=== PATIENT | female | born 1950 | race Caucasian/White ===

== ENCOUNTER 2024-03-15 19:03 | Inpatient (IN) | payer MEDICARE, SELFPAY ==
[2024-03-15] VITALS (7 sets, daily range): BP systolic 120–128; BP diastolic 53–68; PULSE 89–98; RESP 15–27; TEMP 39.2–39.4; O2SAT 95–99; BMI 28.2
--- NOTE | 2024-03-15 19:13 | XR_ITS ---
Examination: AP chest single view Technique: AP portable upright chest single Exam date and time: March 15, 2019 0529 hrs. Indications: Umbilical Findings: Subsegmental atelectasis right base secondary to elevation Normal heart size No lobar pneumonia Moderate osteopenia Impression: No pneumonia identified
--- NOTE | 2024-03-15 19:13 | EKG_ITS ---
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
--- NOTE | 2024-03-15 19:13 | PD.EDADULT ---
ED General RME/HPI General Chief complaint: Fever Stated complaint: WEAKNESS Time Seen by Provider: 03/15/24 19:08 Arrival date/time: 03/15/24 19:03 CC: Weakness malaise HPI ongoing for the past day and a half EMS reports stable vital signs of the patient was warm to touch. Friend of the patient called stating the patient has not gotten out of her chair for the past day and a half patient admits she has not eaten anything today but drank a lot of water. Patient has a history of MS is concerned that she has an MS flare. Patient is also diabetic blood sugar and route was 85. Patient is awake alert oriented stating that she feels generalized weak, denies any chest pain shortness of breath or difficulty breathing. Related Data Home Medications ?Medication ?Instructions ?Recorded ?Confirmed metformin 1,000 mg tablet 1,000 mg PO BIDWM 10/21/20 11/03/22 prednisone 10 mg tablet 10 mg PO DAILY 10/21/20 11/03/22 pyridostigmine bromide 60 mg tablet 60 mg PO QID 10/21/20 11/03/22 diltiazem HCl 120 mg 120 mg PO QDAY 02/20/21 11/03/22 capsule,extended release 24 hr (Cardizem CD) Previous Rx's ?Medication ?Instructions ?Recorded duloxetine 60 mg capsule,delayed 60 mg PO QDAY #0 caps 03/31/19 release cefuroxime axetil 500 mg tablet 500 mg PO BID #6 tabs 11/04/22 Allergies Allergy/AdvReac Type Severity Reaction Status Date / Time Sulfa (Sulfonamide Allergy Severe Hives Verified 11/02/22 06:03 Antibiotics) Review of Systems Review of Systems Narrative Review of Systems: GEN: No fever, no chills, no weight loss EYES: No discharge, no visual changes, no pain HEENT: No ear pain, no congestion, no sore throat PULM: No shortness of breath, no cough, no congestion CV: No chest pain, no dyspnea on exertion, no palpitations GI: No nausea, no vomiting, no diarrhea, no pain, no constipation : No frequency, no urgency, no dysuria MUSC/SKEL: No joint pain, no back pain SKIN: No rash PSYCH: No hallucinations, no depression HEME/LYMPH: No easy bleeding or bruising tendencies NEURO: + weakness, no headache Past Medical History Past Medical History NEUROLOGIC: Positive Neurological Disorders and Head Trauma; Negative Seizures CARDIAC: Positive Cardiac Disorders, Myocardial Infarction, Hypercholesterolemia and Hypertension; Negative Congestive Heart Failure RESPIRATORY: Positive Pneumonia; Negative Chronic Obstructive Pulmonary Disease (COPD), Asthma, Tuberculosis or Sleep Apnea GASTROINTESTINAL: Negative Gastrointestinal Disorders or Hepatitis GENITOURINARY: Negative Genitourinary Disorders or Renal Disease REPRODUCTIVE: Positive Endometriosis and Previous Pregnancies MUSCULOSKELETAL: Positive Musculoskeletal Disorders, Myasthenia Gravis, Arthritis, Scoliosis and Fractures ENT: Positive Cataracts and Head Trauma ENDOCRINE: Positive Endocrine Disorders and Diabetes Mellitus Type 2; Negative Diabetes Mellitus Type 1 HEMATOLOGIC: Negative Blood Disorders, Anemia or Sickle Cell Disease PSYCHO/SOCIAL: Positive Psychiatric Problems, Bipolar Disorder, Depression and Anxiety; Negative Recreational Drug Use OTHER HISTORY: Positive Hospitalization, Falls, Blood Transfusions, Chicken Pox, Measles and Rubella (Bengali Measles); Negative Autoimmune Disease, Shingles, Blood Transfusion Reaction, Anesthesia Reactions, Chemotherapy, Radiation Therapy, MRSA, VRSA, Vancomycin-Resistant Enterococci, Human Immunodeficiency Virus (HIV), Mumps, Pertussis, Clostridium Difficile or Cancer Family History FAMILY HISTORY: Positive Family Cardiac Disorders and Family Surgery; Negative Family Psychiatric Problems, Family Respiratory Disorders, Family Gastrointestinal Problems, Family Cancer or Family Anesthesia Reaction Surgical History SURGICAL: Positive Tonsillectomy, Adenoidectomy, Abdominal Surgery, Joint Replacement and Hysterectomy Social History SMOKING STATUS: Former smoker SECOND HAND EXPOSURE: No SUBSTANCE USE: does not use ED Exam Narrative Physical exam: [General: Deconditioned, but appears not in any acute distress Head normocephalic HEENT: Eyes pupils are PERRLA EOMs are intact mouth pink dry membranes uvula is midline swallow symmetrical lips are dry. Nose no rhinorrhea epistaxis. All other subsystems of HEENT are within acceptable limits Neck is supple nontender Chest equal chest rise nontender to palpation Respiratory: Clear to auscultation no wheezes crackles or rubs CV: Rate rhythm is regular no murmurs rubs or clicks Abdomen is distended secondary to body habitus soft nontender no masses positive bowel sounds all 4 quadrants Back: No CVA tenderness no spinous process tenderness from cervical spine thoracic and lumbar spine Skin: Warm to touch, intact no petechiae rash induration ulceration or crepitus Extremities: Moving all extremity against resistance cap refill less than 2 seconds neurosensory intact Neuro: Awake alert oriented x3 Glascow coma 15 no focal deficits] Course Quality Measures none (Sepsis- see notes) Orders Category Date Time Status Admit to Inpatient Status Routine Admission 03/16/24 06:06 Active Patient Condition Routine Admission 03/16/24 06:05 Ordered Bedside COVID-19 Antigen Test NOW Care 03/15/24 19:09 Active Bedside Influenza A&B Antigen Test NOW Care 03/15/24 19:09 Completed COVID-19 Screening Questionnaire NOW Care 03/16/24 05:38 Active Baler Operator STAT Care 03/15/24 19:13 Active Continuous Pulse Oximetry STAT Care 03/15/24 19:13 Completed Decision to Admit X1 Care 03/16/24 05:38 Completed EKG (ED ONLY) *Do not use* NOW Care 03/15/24 19:13 Completed EKG (ED ONLY) *Do not use* NOW Care 03/16/24 00:31 Completed In and Out Catheter X1PRN Care 03/15/24 19:13 Completed Insert IV NOW Care 03/15/24 19:13 Completed NPO STAT Care 03/15/24 19:13 Active Notify provider NEEDED Care 03/16/24 06:05 Active Nurse Swallow Screen X1 Care 03/16/24 06:12 Active Seizure precautions NEEDED Care 03/16/24 06:06 Active Strict Intake and Output Routine Care 03/15/24 19:13 Ordered Swallow Evaluation NEEDED Care 03/16/24 06:12 Active Diet Cardiac Diet 03/16/[address] abdomen pelvis wo con Stat Exams 03/15/24 22:15 Completed EKG (ED Only) Stat Exams 03/15/24 19:13 Draft EKG (ED Only) Stat Exams 03/16/24 00:31 Ordered US gall bladder Stat Exams 03/16/24 03:00 Taken XR chest 1V SEPSIS PROTOCOL Stat Exams 03/15/24 19:13 Completed B-Type Natriuretic Peptide Stat Lab 03/15/24 20:51 Completed Basic Metabolic Panel AM DRAW Lab 03/17/24 05:00 Ordered Basic Metabolic Panel AM DRAW Lab 03/18/24 05:00 Ordered Basic Metabolic Panel AM DRAW Lab 03/19/24 05:00 Ordered Blood Culture (Lab) Stat Lab 03/15/24 20:42 Received CBC AM DRAW Lab 03/17/24 05:00 Ordered CBC AM DRAW Lab 03/18/24 05:00 Ordered CBC AM DRAW Lab 03/19/24 05:00 Ordered CBC Stat Lab 03/15/24 20:51 Completed Comprehensive Metabolic Panel Stat Lab 03/15/24 20:51 Completed LDH (Lactate Dehydrogenase) Stat Lab 03/15/24 20:51 Completed Lactate (Lactic Acid) Stat Lab 03/15/24 20:51 Completed Lipase Stat Lab 03/15/24 20:51 Completed Lipid Panel Routine Lab 03/16/24 06:08 Ordered Magnesium AM DRAW Lab 03/17/24 05:00 Ordered Magnesium AM DRAW Lab 03/18/24 05:00 Ordered Magnesium AM DRAW Lab 03/19/24 05:00 Ordered Magnesium Stat Lab 03/15/24 20:51 Completed Partial Thromboplastin Time Stat Lab 03/15/24 20:51 Completed Phosphorous AM DRAW Lab 03/17/24 05:00 Ordered Phosphorous AM DRAW Lab 03/18/24 05:00 Ordered Phosphorous AM DRAW Lab 03/19/24 05:00 Ordered Phosphorous Stat Lab 03/15/24 20:51 Completed Procalcitonin Stat Lab 03/15/24 20:51 Completed Prothrombin Time with INR Stat Lab 03/15/24 20:51 Completed Thyroid Stimulating Hormone AM DRAW Lab 03/17/24 05:00 Ordered Troponin I Stat Lab 03/15/24 20:51 Completed Urinalysis Stat Lab 03/15/24 20:53 Completed Urine Culture Stat Lab 03/15/24 20:53 Received Acetaminophen Tab [Tylenol Tab] Med 03/16/24 06:05 Active 650 mg PO Q6H PRN Acetaminophen Tab [Tylenol Tab] Med 03/15/24 21:30 Discontinued 650 mg PO X1 ONE Albuterol/Ipratr Rt Kate [Duoneb Rt Kate] Med 03/16/24 06:05 Active 3 ml INH Q2HR PRN DULoxetine HCL [Cymbalta] Med 03/16/24 09:00 Active 60 mg PO QDAY Dextrose 50% Syr [D50w Syringe Abboject] Med 03/16/24 06:10 Active 50 ml IV Q15MIN PRN Enoxaparin [Lovenox] Med 03/16/24 09:00 Active 40 mg SC QDAY Glucagon Inj Med 03/16/24 06:10 Active 1 mg IM Q15MIN PRN HYDROcodone*/APAP 5/325 [[place] 5/325] Med 03/16/24 06:05 Active 1 tab PO Q4HR PRN INSULIN LISPRO (AdmeLOG) [HumaLOG] Med 03/16/24 07:30 Active See Protocol SC AC Ketorolac Inj [Toradol Inj] Med 03/15/24 23:06 Discontinued 30 mg IVP X1 ONE Magnesium Sulfate 4 GM Ivpb [Magnesium Sulfate Ivpb] Med 03/16/24 06:13 Active 4 gm in 50 ml IV X1 Ondansetron Inj [Zofran Inj] Med 03/16/24 06:05 Active 4 mg IV Q6H PRN Piper/Tazo 3.375 gm [Zosyn] 50 ml Med 03/16/24 14:00 Discontinued IV Q8HR Piper/Tazo Inj [Zosyn Inj] 3.375 gm Med 03/16/24 06:00 Active Sodium Chloride 0.9% [Ns] 100 ml IV X1 cefTRIAXone/D5w 1gm IV premix [Rocephin/D5w 1gm IV Med 03/17/24 09:00 Active premix] 50 ml IV QDAY cefTRIAXone/D5w 1gm IV premix [Rocephin/D5w 1gm IV Med 03/15/24 23:09 Discontinued premix] 50 ml IV X1 pyRIDostigmine bromide [Mestinon] Med 03/16/24 08:00 Active 90 mg PO Q6HR traZODone HCL [Desyrel] Med 03/16/24 21:00 Active 50 mg PO HS Code Status Routine Oth 03/16/24 06:05 Ordered Oxygen Delivery NOW RT 03/15/24 19:13 Active Vital Signs Vital signs: Vital Signs Temperature 102.6 F H 03/15/24 19:07 Pulse Rate 92 03/15/24 19:07 Respiratory Rate 19 03/15/24 19:07 Blood Pressure 128/68 03/15/24 19:07 Pulse Oximetry (%) 98 03/15/24 19:07 Oxygen Delivery Method Room Air 03/15/24 19:07 [facility] Patient data External records reviewed:: [facility] previous records and EMS form Clinical information provided by:: patient and EMS Social determinants that could affect healthcare access:: none Patient has the following chronic illnesses:: Diabetes MS How is presenting disease/condition affected by chronic disease/condition?: uneffected by Evaluation data The following diagnostics were reviewed and interpreted by me:: lab results, radiology exam(s) and EKG tracing(s) Lab and/or radiology exams considered but not ordered:: EKG performed at 2053 shows a ventricular rate of 89 OK interval 176 QRS of 102 QTc of 4 7 sinus rhythm. CBC shows leukocytosis of 12.8 hemoglobin of 10.3 with a hematocrit of 31 no thrombocytopenia Coags within acceptable limits CMP shows sodium 137 potassium of 4.2 chloride 105 carbon oxide of 25.0 gap of 7 BUN of 26 creatinine 1.7 glucose of 86 Mag 1.5 BNP of 216 Pro-Jared of 1.23 lipase within acceptable limits Lactic is 1.1. Urine shows a to 40 WBCs 1+ bacteria urine nitrite negative urine leukocyte esterase positive. COVID and influenza negative. Interpretation Summary: Patient is a fever of 103.0 the urine is not commiserate with a high temp such as this the patient is not altered, there is no other acute source at this time a CT of the abdomen pelvis. Medications Medications considered but not ordered:: none Medication administrations:: Medication Administration History Acetaminophen (Acetaminophen 325 Mg Tablet) 650 mg PO Q6H PRN PRN Reason: Fever >100.3 or pain Stop: 04/15/24 06:04 Hydrocodone Bitart/Acetaminophen (Hydrocodone/Apap 5/325 Tablet) 1 tab PO Q4HR PRN PRN Reason: PAIN SCALE 4-10(Mod-Sev Stop: 03/21/24 06:04 Albuterol/Ipratropium (Albuterol/Ipratropium (Duoneb) Rt Kate 3 Ml Nebu) 3 ml INH Q2HR PRN PRN Reason: SHORTNESS OF BREATH OR WHEEZE Stop: 04/15/24 06:04 Dextrose (Dextrose 50%-Water Inj 50 Ml Syringe) 50 ml IV Q15MIN PRN PRN Reason: BG <50 OR BG <70 & pt unresponsive Stop: 04/15/24 06:09 Duloxetine HCl (Duloxetine Hcl 30 Mg Capsule) 60 mg PO QDAY MARIA DE JESUS Stop: 04/15/24 08:59 Enoxaparin Sodium (Enoxaparin Sod Inj 40 Mg/0.4 Ml Syringe) 40 mg SC QDAY MARIA DE JESUS Stop: 03/30/24 08:59 Glucagon (Glucagon Inj 1 Mg Vial) 1 mg IM Q15MIN PRN PRN Reason: BG <70, and no IV access Piperacillin Sod/Tazobactam (Sod 3.375 gm/ Sodium Chloride) 100 mls @ 200 mls/hr IV X1 ONE Stop: 03/16/24 06:29 Last Admin: 03/16/24 06:02 Dose: 200 mls/hr Documented By: QUINN Magnesium Sulfate (Magnesium Sulfate Ivpb) 4 gm in 50 mls @ 12.5 mls/hr IV X1 ONE Stop: 03/16/24 10:12 Ceftriaxone Sodium/Dextrose (Rocephin/D5w 1gm Iv Premix) 50 mls @ 100 mls/hr IV QDAY MARIA DE JESUS Stop: 03/24/24 08:59 Insulin Human Lispro (Insulin Lispro (Admelog) 1 Unit/0.01 Ml Unit) 0 unit SC AC MARIA DE JESUS; Protocol Stop: 04/15/24 07:29 Ondansetron HCl (Ondansetron Inj 2 Mg/Ml Inj 2 Ml) 4 mg IV Q6H PRN; Protocol PRN Reason: NAUSEA OR VOMITING Stop: 04/15/24 06:04 Pyridostigmine Dickey (Pyridostigmine Dickey 60 Mg Tablet) 90 mg PO Q6HR MARIA DE JESUS Stop: 04/15/24 07:59 Trazodone HCl (Trazodone Hcl 50 Mg Tablet) 50 mg PO HS MARIA DE JESUS Stop: 04/15/24 20:59 Discontinued Medications Acetaminophen (Acetaminophen 325 Mg Tablet) 650 mg PO X1 ONE Stop: 03/15/24 21:31 Last Admin: 03/15/24 21:36 Dose: 650 mg Documented By: CAMILA Ceftriaxone Sodium/Dextrose (Rocephin/D5w 1gm Iv Premix) 50 mls @ 100 mls/hr IV X1 ONE Stop: 03/15/24 23:38 Last Infusion: 03/16/24 00:27 Dose: Infused Documented By: Admin: 03/15/24 23:17 Dose: 100 mls/hr Documented By: CAMILA Piperacillin/Tazobactam/Dextrose (Zosyn) 50 mls @ 12.5 mls/hr IV Q8HR MARIA DE JESUS; Protocol Stop: 03/23/24 13:59 Ketorolac Tromethamine (Ketorolac Inj 30 Mg/Ml Vial) 30 mg IVP X1 ONE Stop: 03/15/24 23:07 Last Admin: 03/15/24 23:16 Dose: 30 mg Documented By: CAMILA As above Consultations Consultation(s) initiated? (list below): Yes Diagnosis Differential Diagnosis ED Complaint MDM: Sepsis, UTI, pyelonephritis, acute abdominal infection, acute cholecystitis Most likely diagnosis given after review of the tests above:: Acute pyelonephritis, cholelithiasis Admission Indicated Admission indicated?: indicated Explain why admission is indicated or not indicated:: Patient with acute pyelonephritis Admission Request Was there a request for admission?: Yes Admission Attestation Admission request attestation: Discussed case with [] from Hospitalist service regarding admission. Discussed patients ED course, exam findings, labs, and radiology results. The Hospitalist [agrees,declines] to accept the patient for admission. Disposition Plan Disposition Plan: Admit Medical Decision Making Differential Diagnosis Differential Diagnosis: Sepsis, UTI, pyelonephritis, acute abdominal infection, acute cholecystitis Lab Data 03/15/24 20:51 03/15/24 20:51 Labs: Lab Results 03/15/24 03/15/24 Range/Units 20:51 20:53 WBC 12.8 H (3.6-11.0) Thou/mm3 RBC 3.39 L (4.00-5.20) Miln/mm3 Hgb 10.3 L (12.0-16.0) g/dL Hct 31.1 L (36.0-46.0) % MCV 92 (80-100) fL MCH 30.4 (25.0-35.0) pg MCHC 33.1 (31.0-37.0) g/dl RDW Std Deviation 44.8 (36.4-46.3) fL Plt Count 188 (140-440) Thou/mm3 Neut % (Auto) 90 H (37-80) % Lymph % (Auto) 5 L (10-50) % [place] % (Auto) 5 (0-12) % Eos % (Auto) 0 (0-10) % Baso % (Auto) 0 (0-2.5) % Neut # (Auto) 11.5 H (1.8-7.7) Thou/mm3 Lymph # (Auto) 0.6 L (1.0-4.8) Thou/mm3 [place] # (Auto) 0.6 (0.0-0.8) Thou/mm3 Eos # (Auto) 0.0 (0.0-0.5) Thou/mm3 Baso # (Auto) 0.0 (0.0-0.2) Thou/mm3 Immature Gran # (Auto) 0.06 H (0.00-0.00) Thou/mm3 Absolute Nucleated RBC 0.00 (0.00-0.00) Thou/mm3 Immature Gran % 1 H (0-0) % Nucleated RBC % 0 (0) /100 WBC PT 11.2 (9.0-12.2) Seconds INR 1.0 (0.9-1.3) APTT 31.8 (22.0-36.0) Seconds Sodium 137 (136-145) mMol/L Potassium 4.2 (3.4-5.1) mMol/L Chloride 105 (98-107) mMol/L Carbon Dioxide 25.0 (20.0-31.0) mMol/L Anion Gap 7 (7-16) BUN 26 H (9-23) mg/dL Creatinine 1.7 H (0.6-1.3) mg/dL Estim Creat Clear Calc 30.4 L (>60) mL/min eGFR 31 L (60 - ) See Note BUN/Creatinine Ratio 15 (12-20) Ratio Glucose 86 (74-106) mg/dL Calculated Osmolality 277 (275-295) Lactic Acid 1.1 (0.4-2.0) mMol/L Calcium 9.8 (8.3-10.6) mg/dL Corrected Calcium 9.8 (8.5-10.1) mg/dL Phosphorus 2.7 (2.4-5.1) mg/dL Magnesium 1.5 L (1.6-2.6) mg/dL Total Bilirubin 0.5 (0.3-1.2) mg/dL AST 19 (0-34) U/L ALT 9 L (10-49) U/L Alkaline Phosphatase 73 (46-116) U/L Lactate Dehydrogenase 170 (120-246) U/L Troponin I 0.030 (0.0-0.045) ng/mL B-Natriuretic Peptide 216 H (0-100) pg/mL Total Protein 6.8 (5.7-8.2) gm/dL Albumin 4.1 (3.4-4.8) gm/dL Globulin 2.7 (2.3-3.5) gm/dL Albumin/Globulin Ratio 1.5 (1.2-2.2) Lipase 30 (12-53) U/L Procalcitonin 1.23 H (0.0-0.49) ng/ml Ur Collection Type Clean Catch Urine Color Lt-Yellow (Lt Yel-Yel) Urine Clarity Hazy (Clear/Hazy) Urine pH 5.5 (5.0-7.0) Ur Specific [place] 1.014 (1.001-1.035) Urine Protein 1+ A (Neg - Trace) Urine Glucose (UA) Negative (Negative) Urine Ketones Negative (Negative) Urine Blood 2+ A (Negative) Urine Nitrite Negative (Negative) Urine Bilirubin Negative (Negative) Urine Urobilinogen (Auto) Negative (0.0-1.0) mg/dL Ur Leukocyte Esterase Positive (Negative) Urine RBC 14 H (0-3) /hpf Urine WBC 240 H (0-5) /hpf Ur Squamous Epith Cells < 1 (0-5) /hpf Urine Bacteria 1+ A (None) Discharge Plan Plan Patient Disposition: Admit Acute Care w/in Hospital Patient condition on transfer: Stable Prescriptions/Referrals Prescriptions/Med Rec: No Action pyridostigmine bromide 60 mg tablet 60 mg PO QID prednisone 10 mg tablet 10 mg PO DAILY Patient Comments: take 1 tablet by mouth once daily metformin 1,000 mg tablet 1,000 mg PO BIDWM duloxetine 60 mg Capsule,Delayed Release(Dr/Ec) 60 mg PO QDAY Qty: 0 0RF diltiazem HCl [Cardizem CD] 120 mg Capsule,Extended Release 24hr 120 mg PO QDAY cefuroxime axetil 500 mg tablet 500 mg PO BID Qty: 6 0RF Referrals: No Primary/Family,Physician [Primary Care Provider] - In 1 week Problem List Clinical Impression: Sepsis, Acute pyelonephritis, Acute renal failure, Acute cholecystitis Patient/Caregiver Discharge Instructions Print Language: Italian Stand Alone Forms: [employer] Info., Patient Portal Info Letter
[2024-03-15 21:01] LABS: Collection Type, Urine Clean Catch
[2024-03-15 21:01] LABS: Lactate (Lactic Acid) 1.1 mMol/L (0.4-2.0)
[2024-03-15 21:08] LABS: Basophils % (Auto) 0 % (0-2.5); Eosinophils % (Auto) 0 % (0-10); Hematocrit 31.1 % (36.0-46.0); Hemoglobin 10.3 g/dL (12.0-16.0); Immature Granulocytes % (Auto) 1 % (0-0); Immature Granulocytes Auto 0.06 Thou/mm3 (0.00-0.00); Lymphocytes # (Auto) 0.6 Thou/mm3 (1.0-4.8); Lymphocytes % (Auto) 5 % (10-50); Mean Corpuscular HGB Conc 33.1 g/dl (31.0-37.0); Mean Corpuscular Hemoglobin 30.4 pg (25.0-35.0); Mean Corpuscular Volume 92 fL (80-100); Monocytes # (Auto) 0.6 Thou/mm3 (0.0-0.8); Monocytes % (Auto) 5 % (0-12); Neutrophils # (Auto) 11.5 Thou/mm3 (1.8-7.7); Neutrophils % (Auto) 90 % (37-80); Nucleated Red Blood Cell % 0 /100 WBC (0); Platelet Count 188 Thou/mm3 (140-440); RDW Standard Deviation 44.8 fL (36.4-46.3); Red Blood Count 3.39 Miln/mm3 (4.00-5.20); White Blood Count 12.8 Thou/mm3 (3.6-11.0)
[2024-03-15 21:18] LABS: Partial Thromboplastin Time 31.8 Seconds (22.0-36.0); Prothrombin Time 11.2 Seconds (9.0-12.2)
[2024-03-15 21:19] LABS: Bacteria,Urine 1+; Bilirubin,Urine Negative (Negative); Blood,Urine 2+ (Negative); Color,Urine Lt-Yellow (Lt Yel-Yel); Glucose, Urine Negative (Negative); Ketones,Urine Negative (Negative); Leukocyte Esterase,Urine Positive (Negative); Nitrite,Urine Negative (Negative); PH,Urine 5.5 (5.0-7.0); Protein,Urine 1+ (Neg - Trace); RBC,Urine 14 /hpf (0-3); Specific Gravity,Urine 1.014 (1.001-1.035); Squamous Epithelial Cell,Urine < 1 /hpf (0-5); Urobilinogen,Urine Negative mg/dL (0.0-1.0); WBC,Urine 240 /hpf (0-5)
[2024-03-15 21:21] LABS: Clarity,Urine Hazy (Clear/Hazy)
[2024-03-15 21:33] LABS: Albumin, Serum 4.1 gm/dL (3.4-4.8); Albumin/Globulin Ratio 1.5 (1.2-2.2); Alkaline Phosphatase 73 U/L (46-116); Anion Gap 7 (7-16); Aspartate Amino Transferase 19 U/L (0-34); BUN/Creatinine Ratio 15 Ratio (12-20); Bilirubin,Total 0.5 mg/dL (0.3-1.2); Blood Urea Nitrogen 26 mg/dL (9-23); Calcium 9.8 mg/dL (8.3-10.6); Calcium (Corrected) 9.8 mg/dL (8.5-10.1); Chloride 105 mMol/L (98-107); Creatinine (Component) 1.7 mg/dL (0.6-1.3); Estimated Creatinine Clearance 30.4 mL/min (>60); Globulin 2.7 gm/dL (2.3-3.5); Glucose 86 mg/dL (74-106); LDH (Lactate Dehydrogenase) 170 U/L (120-246); Lipase 30 U/L (12-53); Magnesium 1.5 mg/dL (1.6-2.6); Osmolality,Calculated 277 (275-295); Phosphorous 2.7 mg/dL (2.4-5.1); Potassium 4.2 mMol/L (3.4-5.1); Procalcitonin 1.23 ng/ml (0.0-0.49); Sodium 137 mMol/L (136-145); Total Protein 6.8 gm/dL (5.7-8.2); eGFR 31 See Note
[2024-03-15 21:34] LABS: Alanine Aminotransferase 9 U/L (10-49); B-Type Natriuretic Peptide 216 pg/mL (0-100)
[2024-03-15] MEDS: ACETAMINOPHEN 325 MG TABLET 650 MG PO (21:36)
--- NOTE | 2024-03-15 22:15 | XR_ITS ---
Examination: CT abdomen and pelvis without contrast. Coronal 3-D reconstructions. Sagittal 2-D reconstructions. Date and time of exam:March 15, 2024 2249 hrs. Indications: Fever unknown origin today with abdominal pain CTDI: vol (mGy): 7.24 DLP: (mGycm): 465 Technique: Axial images of the abdomen have been obtained, 3 mm slice thickness Intravenous contrast material has not been administered. Low dose protocols were performed. One or more of the following dose reduction techniques were used; automated exposure control, adjustment of the mA and/or KV according to patient size, use of iterative reconstruction technique. Findings: Soft areas of parenchymal disease in the left upper lobe No liver or splenic lesion Distended gallbladder with gallstones No pancreatic mass 2 mm right renal calculus Perinephric stranding Mild dilatation right renal pelvicalyceal system Normal appendix No bowel obstruction Heavy abdominal aortic calcification Colonic diverticulosis No diverticulitis Thickening of the rectal wall Contracted bladder, bladder wall thickening with inflammatory change Small fat-containing inguinal hernias Prominent osteopenia with advanced degenerative disc disease diffusely in the lumbar spine Impression: Mild areas of pneumonia in the left upper lobe Distended gallbladder with gallstones, recommend gallbladder sonography follow-up Findings most consistent with right pyelonephritis Prominent cystitis Proctitis pattern
--- NOTE | 2024-03-15 23:08 | PD.EDADDENDU ---
Emergency Room Addendum Addendum Narrative: 230: Care assumed from Pedro Gray NP. Past medical, surgical, social and family history reviewed. Vitals and home medications reviewed. Results and treatment plan discussed. I will assume the care of the patient at this time and will follow the patient, pending CT abdomen pelvis results. Please refer to the emergency department record for history and examination from initial visit. 2340: CT result as below. US gallbladder ordered. 0521: Patient is alert, awake, oriented, and talking in full sentences. She denies any abdominal pain. 0535: Discussed case with [Dr. Farias] from Hospitalist service regarding admission. Discussed patients ED course, exam findings, labs, and radiology results. The Hospitalist [agrees] to accept the patient for admission. States he will consult with general surgery. RADIOLOGY RESULTS: [facility] Report Signed Patient: SHANE CHAPPELL. Record#: [id number] Birthdate: 1950 Age/Sex: 73 / F Location: [facility] Attending Dr: Ordering Physician: Pedro Gray NP Date of Service: 03/15/24 Procedure(s): CT abdomen pelvis wo con Accession Number(s): [id number] cc: Pedro Gray NP; Carlos Palma MD; NO PRIMARY/FAMILY,PHYSICIAN~ Examination: CT abdomen and pelvis without contrast. Coronal 3-D reconstructions. Sagittal 2-D reconstructions. Date and time of exam:March 15, 2024 2249 hrs. Indications: Fever unknown origin today with abdominal pain CTDI: vol (mGy): 7.24 DLP: (mGycm): 465 Technique: Axial images of the abdomen have been obtained, 3 mm slice thickness Intravenous contrast material has not been administered. Low dose protocols were performed. One or more of the following dose reduction techniques were used; automated exposure control, adjustment of the mA and/or KV according to patient size, use of iterative reconstruction technique. Findings: Soft areas of parenchymal disease in the left upper lobe No liver or splenic lesion Distended gallbladder with gallstones No pancreatic mass 2 mm right renal calculus Perinephric stranding Mild dilatation right renal pelvicalyceal system Normal appendix No bowel obstruction Heavy abdominal aortic calcification Colonic diverticulosis No diverticulitis Thickening of the rectal wall Contracted bladder, bladder wall thickening with inflammatory change Small fat-containing inguinal hernias Prominent osteopenia with advanced degenerative disc disease diffusely in the lumbar spine Impression: Mild areas of pneumonia in the left upper lobe Distended gallbladder with gallstones, recommend gallbladder sonography follow-up Findings most consistent with right pyelonephritis Prominent cystitis Proctitis pattern Dictated By: Carlos Palma MD Signed By: <Electronically signed by Carlos Palma MD in OV> 03/15/24 4580 [address] Preliminary Report Draft Patient: SHANE CHAPPELL. Record#: [id number] Birthdate: 1950 Age/Sex: 73 / F [facility] Attending Dr: Ordering Physician: Date of Service: Procedure(s): Accession Number(s): cc: ~ Gallbladder ultrasound. March 16, 2024 at 0426 hours Clinical history: Distended gallbladder, gallstones. Comparison: No prior study is available for comparison. Findings: The gallbladder is distended and contains some dependent gallbladder sludge/gallstones. A bilingual inside sales representative gallstone measures 2.3 cm in maximal dimension. Gallbladder wall is thickened measuring 3.3 mm. There may be a small amount of pericholecystic fluid. There is fatty echogenicity of the liver. There is hepatopedal flow within the portal vein. Right lobe of the liver is normal in size measuring 13.5 cm. No space-occupying hepatic mass or intrahepatic biliary dilatation noted. The pancreas is not visualized. The right kidney is not imaged adequately. Common bile duct is not clearly delineated. Impression: Suspect acute calculus cholecystitis. If clinically necessary this may be confirmed with nuclear medicine hepatobiliary scan. Report Electronically Signed By: Jared Carlos 03/16/2024 5:17:17 AM [EST] Critical Care Time: 40 minutes The high probability of sudden, clinically significant deterioration in the patient?s condition required the highest level of my preparedness to intervene urgently. The services I provided to this patient were to treat and/or prevent clinically significant deterioration. Services included the following: chart data review, reviewing nursing notes and/or old charts, documentation time, corporate health consultant collaboration regarding findings and treatment options, medication orders and management, direct patient care, vital sign assessments and ordering, interpreting and reviewing diagnostic studies and lab tests. Aggregate critical care time includes only time during which I was engaged in work directly related to the patient?s care, as described above, whether at bedside or elsewhere in the Emergency Department. It did not include time spent performing other reported procedures or the services of residents, students, nurses or physician assistants.
[2024-03-15] MEDS: KETOROLAC INJ 30 MG/ML VIAL IVP (23:16)
[2024-03-15] MEDS: cefTRIAXone/D5w 1gm IV premix 50 ML IV (23:17)
[2024-03-16] VITALS (11 sets, daily range): BP systolic 99–127; BP diastolic 43–74; PULSE 59–130; RESP 16–95; TEMP 36.7–38.9; O2SAT 91–100; BMI 28.2
--- NOTE | 2024-03-16 00:23 | PC.NURSE ---
INFORMED BY EMERGENCY MANAGEMENT CONSULTANT THAT PATIENTS HR WAS 167 TO 170. SHAGUFTA SANCHEZ WAS AT BEDSIDE HAVING PATIENT ATTEMPT VALSALVA MANEUVER CAUSING HER TO CONVERT TO HR 97. PROVIDER CARLA NOTIFIED. EKG WAS ORDERED.
--- NOTE | 2024-03-16 03:00 | XR_ITS ---
Examination: Abdomen sonogram, Limited Date and time of exam: March 16, 2024 0426 hrs. Indications: Nausea abdominal pain beginning several years ago, worse today Technique: Real-time finn scale transabdominal sonographic images of the upper abdomen obtained. Findings: Multiple gallstones Gallbladder wall 0.33 cm Gallbladder sludge No diagnostic visualization common bile duct pancreas, secondary to bowel gas Liver 13.5 cm no liver lesions Normal hepatopedal portal venous flow Patent IVC Impression: Cholelithiasis,. Borderline thickening gallbladder wall 0.33 cm, clinical correlation advised, suggest HIDA scan or MRCP follow-up to exclude cholecystitis
--- NOTE | 2024-03-16 05:19 | PRELIM_ITS ---
Gallbladder ultrasound. March 16, 2024 at 0426 hours Clinical history: Distended gallbladder, galls tones. Comparison: No prior study is available for comparison. Findings:The gallbladder is distended and contains some dependent gallbladder sludge/gallstones. A electroplating sales representative gallstone measures 2.3 cm in maximal dimension. Gallbladder wall is thickened measuring 3.3 mm. There may be a small amount of pericholecystic fluid. There is fatty echogenicity of the liver. There is hepatopedal flow within th e portal vein. Right lobe of the liver is normal in size measuring 13.5 cm. No space-occupying hepati c mass or intrahepatic biliary dilatation noted. The pancreas is not visualized. The right kidney is not imaged adequately. Common bile duct is not clearly delineated.Impression:Suspect acute calculus c holecystitis. If clinically necessary this may be confirmed with nuclear medicine hepatobiliary scan. Report Electronically Signed By: Jared Carlos 03/16/2024 5:17:17 AM [EST]
[2024-03-16] MEDS: PIPER/TAZO INJ 3.375 GM in SODIUM CHLORIDE 0.9% 100 ML IV (06:02)
--- NOTE | 2024-03-16 06:12 | ESHP_ITS ---
Documentation for date of: 03/16/24 HPI History of Present Illness Chief complaint: Generalized weakness, Vomiting History of present illness: HPI: Patient is a 73-year-old female with past medical history significant for essential hypertension, insulin-dependent diabetes mellitus type 2, major depressive disorder and myasthenia gravis presenting today with a chief complaint of generalized weakness and vomiting. Patient follows up with neurologist Dr. Garcia. Patient stated that yesterday evening she woke up and was unable to get out of bed due to weakness. She got scared and called the EMT. She also endorsed 1 episode of vomiting. Patient stated that her weakness was generalized. Denies any headache, paresthesia, LOC, visual changes, aphasia/dysarthria. Patient endorsed 1 episode of vomiting of food contents. Denies any hematemesis, coffee-ground emesis, bile emesis. Also denies any fever, diarrhea, sick contacts, chest pain, cough. ED course: BP 128/68, P92, RR 19, temp 102.6 F, SpO2 98% on room air. Labs significant for Hb 10.3, HCT 31.1, WBC 12.8, BUN 26, CR 1.7, Mg 1.5, Pro- Jared 1.23. Urinalysis significant for 1+ protein, 2+ blood and leukocyte esterase positive. EKG significant for sinus rhythm, rate 86. No acute ST changes. Chest x-ray negative for any consolidation, pulmonary edema or pleural effusion. Abdomen/pelvis CT significant for right pyelonephritis and distended gallbladder with multiple gallstones . In ED patient received acetaminophen 650 Mg p.o. x 1, ketorolac 30 Mg IV x 1, ceftriaxone 1 g IV x 1 and Zosyn 3.375 g IV x 1. Patient will be admitted for treatment and management of right pyelonephritis Review of Systems Review of Systems Narrative Review of Systems: GENERAL: Denies fever/chills or diaphoresis. HEENT: Denies headaches or visual changes. Denies discharge. Neuro: As above CARDIO: Denies chest pain or palpitations. PULM: Denies SOB, couging or wheezing. GI: Denies abdominal pain, N/V/C/D. Reports having BMs. URO: Denies buring/itching/pain/urinary changes. MSK/EXT/SKIN: Denies joint/skeletal/muschle pain, issues/changes in upper or lower extremities, itchiness, or superficial pain. PSYCH: Cooperative, pleasant mood & affect. The rest of the review of systems is otherwise negative. Past Medical History Past Medical History Comments PM COMMENT: Past medical history: ? Myasthenia gravis ? Major depression disorder ? Essential hypertension ? Insulin-dependent diabetes mellitus type 2 Medication list: ?Lantus 20 units SC daily ? Trazodone 50 Mg p.o. at bedtime ? Lisinopril 5 Mg p.o. daily ? Pioglitazone ? Pyridostigmine 90 Mg p.o. 4 times daily ? Duloxetine 60 Mg p.o. 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 No kids Tobacco use: Denies ETHO use: Denies Illicit drug use: Denies Social History Note: lives alone. At baseline patient ambulates with a walker and carries out all ADLs independently. She hires people to help out around the house a few times per week. Exam Vital Signs Temp Pulse Resp BP Pulse Ox O2 Del Method 102.1 F H 94 17 127/69 96 Room Air 03/16/24 05:53 03/16/24 05:53 03/16/24 05:53 03/16/24 05:53 03/16/24 05:53 03/16/24 05:53 Narrative Exam Constitutional Alert, oriented x 3 and comfortable. Elderly female HEENT Vision grossly intact. Patent nares. Trachea midline Respiratory Chest normal on inspection and clear auscultation bilaterally Cardiovascular S1 and S2 audible, RRR. No murmurs carotid bruit. No gross JVD. Abdominal Soft and non tender to palpation in all quadrants. BS + no flank tenderness, no suprapubic tenderness. Genitourinary No bladder tenderness, no flank pain. Normal to palpation Musculoskeletal Extremities tone within normal limits. No LE edema. Neurological CN II - XII grossly intact. Extremity motor and sensation grossly intact. Skin Warm, dry and intact. No apparent lesions. Psychiatric Patient has good affect, is cooperative Results: Labs 03/15/24 20:51 03/15/24 20:51 Labs: Short CBC 03/15/24 Range/Units 20:51 WBC 12.8 H (3.6-11.0) Thou/mm3 Hgb 10.3 L (12.0-16.0) g/dL Hct 31.1 L (36.0-46.0) % Plt Count 188 (140-440) Thou/mm3 BMP 03/15/24 20:51 Sodium 137 Potassium 4.2 Chloride 105 Carbon Dioxide 25.0 BUN 26 H Creatinine 1.7 H Glucose 86 Calcium 9.8 Cardiac Enzymes 03/15/24 Range/Units 20:51 Troponin I 0.030 (0.0-0.045) ng/mL Liver Function 03/15/24 Range/Units 20:51 Total Bilirubin 0.5 (0.3-1.2) mg/dL AST 19 (0-34) U/L ALT 9 L (10-49) U/L Alkaline Phosphatase 73 (46-116) U/L Albumin 4.1 (3.4-4.8) gm/dL Urine 03/15/24 Range/Units 20:53 Urine Color Lt-Yellow (Lt Yel-Yel) Urine Clarity Hazy (Clear/Hazy) Urine pH 5.5 (5.0-7.0) Ur Specific [place] 1.014 (1.001-1.035) Urine Protein 1+ A (Neg - Trace) Urine Glucose (UA) Negative (Negative) Quality Measures Quality Measures VTE prophylaxis Advance care planning discussed with:: patient Medications Home Medications and Allergies Home Medications ?Medication ?Instructions ?Recorded ?Confirmed ?Type metformin 1,000 mg tablet 1,000 mg PO BIDWM 10/21/20 11/03/22 History prednisone 10 mg tablet 10 mg PO DAILY 10/21/20 11/03/22 History pyridostigmine bromide 60 mg tablet 60 mg PO QID 10/21/20 11/03/22 History diltiazem HCl 120 mg 120 mg PO QDAY 02/20/21 11/03/22 History capsule,extended release 24 hr (Cardizem CD) Allergies Allergy/AdvReac Type Severity Reaction Status Date / Time Sulfa (Sulfonamide Allergy Severe Hives Verified 11/02/22 06:03 Antibiotics) Visit Medications Acetaminophen (Acetaminophen 325 Mg Tablet) 650 mg PO Q6H PRN PRN Reason: Fever >100.3 or pain Stop: 04/15/24 06:04 Hydrocodone Bitart/Acetaminophen (Hydrocodone/Apap 5/325 Tablet) 1 tab PO Q4HR PRN PRN Reason: PAIN SCALE 4-10(Mod-Sev Stop: 03/21/24 06:04 Albuterol/Ipratropium (Albuterol/Ipratropium (Duoneb) Rt Kate 3 Ml Nebu) 3 ml INH Q2HR PRN PRN Reason: SHORTNESS OF BREATH OR WHEEZE Stop: 04/15/24 06:04 Dextrose (Dextrose 50%-Water Inj 50 Ml Syringe) 50 ml IV Q15MIN PRN PRN Reason: BG <50 OR BG <70 & pt unresponsive Stop: 04/15/24 06:09 Duloxetine HCl (Duloxetine Hcl 30 Mg Capsule) 60 mg PO QDAY MARIA ED JESUS Stop: 04/15/24 08:59 Enoxaparin Sodium (Enoxaparin Sod Inj 40 Mg/0.4 Ml Syringe) 40 mg SC QDAY MARIA DE JESUS Stop: 03/30/24 08:59 Glucagon (Glucagon Inj 1 Mg Vial) 1 mg IM Q15MIN PRN PRN Reason: BG <70, and no IV access Piperacillin/Tazobactam/Dextrose (Zosyn) 50 mls @ 12.5 mls/hr IV Q8HR MARIA DE JESUS; Protocol Stop: 03/23/24 13:59 Piperacillin Sod/Tazobactam (Sod 3.375 gm/ Sodium Chloride) 100 mls @ 200 mls/hr IV X1 ONE Stop: 03/16/24 06:29 Last Admin: 03/16/24 06:02 Dose: 200 mls/hr Insulin Human Lispro (Insulin Lispro (Admelog) 1 Unit/0.01 Ml Unit) 0 unit SC AC [facility]; Protocol Stop: 04/15/24 07:29 Ondansetron HCl (Ondansetron Inj 2 Mg/Ml Inj 2 Ml) 4 mg IV Q6H PRN; Protocol PRN Reason: NAUSEA OR VOMITING Stop: 04/15/24 06:04 Pyridostigmine [place] (Pyridostigmine [place] 60 Mg Tablet) 90 mg PO Q6HR MARIA DE JESUS Stop: 04/15/24 06:14 Trazodone HCl (Trazodone Hcl 50 Mg Tablet) 50 mg PO HS [facility] Stop: 04/15/24 20:59 Discontinued Medications Acetaminophen (Acetaminophen 325 Mg Tablet) 650 mg PO X1 ONE Stop: 03/15/24 21:31 Last Admin: 03/15/24 21:36 Dose: 650 mg Ceftriaxone Sodium/Dextrose (Rocephin/D5w 1gm Iv Premix) 50 mls @ 100 mls/hr IV X1 ONE Stop: 03/15/24 23:38 Last Infusion: 03/16/24 00:27 Dose: Infused Ketorolac Tromethamine (Ketorolac Inj 30 Mg/Ml Vial) 30 mg IVP X1 ONE Stop: 03/15/24 23:07 Last Admin: 03/15/24 23:16 Dose: 30 mg Assessment & Plan Plan Patient is a 73-year-old female with past medical history significant for essential hypertension, insulin-dependent diabetes mellitus type 2, major depressive disorder and myasthenia gravis presenting today with a chief complaint of generalized weakness and vomiting.Patient will be admitted for treatment and management of right pyelonephritis. 1. Right pyelonephritis 2. Vomiting 3. Generalized weakness 4. Leukocytosis Patient's denies any dysuria, increased frequency or LUTS. On exam patient has no flank tenderness WBC 12.8 On imaging abdomen/pelvis CT significant for right pyelonephritis and distended gallbladder with multiple gallstones. Plan: ? Pending urine and blood cultures ? Started on ceftriaxone 1 g IV daily on [03/16? 5. Cholecystitis on imaging Patient denies any abdominal pain, On exam patient has no abdominal pain and Wahl's negative. On imaging abdomen/pelvis CT significant for cholecystitis and multiple gallstones Gallbladder ultrasound significant for acute cholecystitis. Clinically patient has no abdominal pain, Wahl's negative and only 1 episode of vomiting. Unlikely to be cholecystitis, most likely just cholelithiasis. 6. Myasthenia gravis Patient's home medication pyridostigmine 90 Mg p.o. 4 times daily Plan: - Resume home medication Prostigmin 90 Mg p.o. 4 times daily 7. Essential hypertension On admission BP 120/68 Home medication lisinopril 5 Mg p.o. daily Plan: ? Day team to decide on resumption of antihypertensive 8. Insulin-dependent diabetes mellitus type 2 Patient's home medication Lantus 20 units SC daily Plan: ? HbA1c ordered ? Patient placed on sliding scale insulin to cover for any blood glucose spikes 9. Normocytic anemia On admission Hb 10.3. From chart review baseline appears to be between 9?10. DDx: Iron deficiency anemia, anemia of chronic disease, lead poisoning, sideroblastic anemia, folate deficiency, B12 deficiency. Plan: ? Suggest iron panel, B12, folate, reticulocyte count, LDH and blood smear to further investigate the etiology. 10. CKD stage IIIb On admission patient's CR 1.7. From chart review baseline appears to be to be between 1.5?1.7 Plan: ? Renally dose medication ? Avoid nephrotoxic agents. Health maintenance: Disposition: IV antibiotics Diet: Cardiac Lines: pIVs GI Prophylaxis: none Thrombo Prophylaxis: Enoxaparin Code status: FULL CODE Plan of care discussed with Attending Dr. Jarrett Davis MD PGY 1 Attending Provider Attestation/Addendum I have discussed and was present for the essential components of the history, physical examination, diagnosis, and treatment plan with the resident. I agree with the patient's care as documented by the resident and amended herein by me. Hunter Farias, DO. Patient seen and evaluated in the ED. In short, patient is a 73-year-old female with a significant past medical history of hypertension, CKD, diabetes, MDD, myasthenia gravis, hyperlipidemia, who presented to the ED with complaints of generalized weakness, nausea and vomiting. The patient denies any acute urinary symptoms to include dysuria, hematuria however does states she has chronic incontinence, she also denies any abdominal pain to include right upper quadrant or epigastric pain. In the ED, patient was febrile, found to have a leukocytosis with a WBC of 12.8, positive urinalysis, elevated creatinine to 1.7 which may be baseline at this point, no other recent values, Pro-Jared elevated, imaging suggestive of possible calculus cholecystitis and possible pyelonephritis, Specifically CT abdomen and pelvis demonstrated possible pneumonia in the left upper lobe, distended gallbladder with gallstones, perinephric stranding consistent with right pyelonephritis, prominent cystitis, and proctitis. Gallbladder ultrasound was taken which was suspicious for acute calculus cholecystitis. In the ED the patient was given a dose of ceftriaxone initially and Zosyn this morning. Significant problems: #? Acute calculus cholecystitis Patient started on broad-spectrum antibiotics, ceftriaxone and Flagyl, HIDA scan also ordered, day team to consider surgical consultation #?Pyelonephritis #Urinary tract infection, possible colonization considering patient denied any symptoms #History of CKD, creatinine 1.7 which may be the patient's new baseline As stated above, patient already on ceftriaxone, blood and urine cultures pending. Patient also started on gentle fluids, NS 75 mL/h #Anemia Iron panel ordered #History of type 2 diabetes on Lantus 20 units daily at home Will hold insulin for now considering the patient is blood glucose was in the 80s #History of myasthenia gravis Patient on pyridostigmine 90 mg p.o. 4 times daily, will restart Although this document has been carefully reviewed, there may still be some phonetic and other typographical errors. These errors are purely grammatical due to imperfections in the software program and should not be construed in any way to compromise the substance of the patient's medical care during this visit.
[2024-03-16] MEDS: ACETAMINOPHEN 325 MG TABLET 650 MG PO ×2 (06:18→23:33)
--- NOTE | 2024-03-16 06:47 | XR_ITS ---
Examination: Nuclear medicine hepatobiliary scan, static HIDA scan Date of exam: March 16, 2024 1446 hours INDICATIONS: Type 2 diabetes, generalized weakness abdominal pain this week Technique And Findings: 5.7 mCi 99m Hepatolite administered intravenously. Serial imaging obtained immediately through 60 minutes. Homogenous uptake in the liver. Common bile duct small bowel activity noted noted Impression: No gallbladder activity, however, the patient refused images beyond 35 minutes, clinical correlation advised
[2024-03-16] MEDS: SODIUM CHLORIDE 0.9% 1000 ML 1,000 ML 75 ML IV ×2 (08:34→23:53)
[2024-03-16 08:37] LABS: Glucose Estimated Average 103 mg/dL (80-131); Hemoglobin A1C 5.2 % Hgb (4.8-6.0)
[2024-03-16 08:45] LABS: Cardiac Risk Estimate 3.7 RATIO (3.7-5.6); Cholesterol 158 mg/dL (132-200); HDL Cholesterol 43 mg/dL (40-60); LDL Cholesterol,Calculated 95 mg/dL (0-130); Triglycerides 98 mg/dL (30-150)
[2024-03-16 09:19] LABS: Total Iron Binding Capacity 226 mcg/dL (250-425)
[2024-03-16 09:29] LABS: Iron 9 mcg/dL (50-170); Percent Iron Saturation 3 % (20-55); Unsaturated Iron Binding 217 (225-295)
--- NOTE | 2024-03-16 10:10 | PCS.ST ---
Swallow Evaluation completed. See report for details. No s/s of aspiration. No dentition. Soft diet ok.
[2024-03-16] MEDS: DULoxetine HCL 30 MG CAPSULE 60 MG PO (10:58)
[2024-03-16] MEDS: metroNIDAZOLE 250 MG TABLET 500 MG PO ×2 (11:07→20:18)
[2024-03-16] MEDS: pyRIDostigmine bromide 60 MG TABLET 90 MG PO ×2 (11:07→17:31)
--- NOTE | 2024-03-16 13:19 | ESPR_ITS ---
<Statement entered by Bereket Briscoe MD - 03/16/24 14:35> I saw and examined the patient, and I agree with current management stated by Dr Sukh Darden MD,PGY1. Plan of care was discussed with the attending physician and resident physician. Disclaimer: Despite multiple revisions, due to the dictation software being used, the document bellow may not be free of grammatical errors including phonetic/typographic errors. However, this does not deter from our commitment to providing health care in the patient's best interest in mind. Dr. Rachna MD, PGY 2 Documentation for date of: 03/16/24 Subjective Subjective Interval history: No overnight events. Patient seen examined at bedside. Patient reported slight improvement in subjective symptoms. Patient still notes shortness of breath, generalized weakness. Patient denies chest pain, fevers, chills, nausea, vomiting. Continue IV antibiotics, follow-up cultures. Follow-up HIDA scan. Exam Vital Signs Temp Pulse Resp BP Pulse Ox O2 Del Method 98.3 F 79 16 99/43 L 94 L Room Air 03/16/24 11:56 03/16/24 11:56 03/16/24 11:56 03/16/24 11:56 03/16/24 11:56 03/16/24 11:56 Narrative Exam PE: Gen: Well-developed and well-nourished. Mildly ill-appearing. HEENT: NCAT, PERRLA, EOMI, MMM, anicteric conjunctivae. CVS: normal S1 and S2. RRR. No M/R/G. Resp: Mild rhonchi right lower lung field. Abd: soft, non-tender, non-distended. MSK: Good ROM in BUE & BLE. No edema or rash. Neuro: CN II-XII grossly intact. Strength 5/5 in BUE & BLE. Alert and oriented x3. Psych: appropriate mood and affect. Objective Labs 03/17/24 05:16 03/17/24 05:16 Labs: Laboratory Results - last 24 hr 03/15/24 03/15/24 03/16/24 20:51 20:53 07:45 WBC 12.8 H RBC 3.39 L Hgb 10.3 L Hct 31.1 L MCV 92 MCH 30.4 MCHC 33.1 RDW Std Deviation 44.8 Plt Count 188 Neut % (Auto) 90 H Lymph % (Auto) [address] [place] % (Auto) 5 Eos % (Auto) 0 Baso % (Auto) 0 Neut # (Auto) 11.5 H Lymph # (Auto) 0.[address] [place] # (Auto) 0.6 Eos # (Auto) 0.0 Baso # (Auto) 0.0 Immature Gran # (Auto) 0.06 H Absolute Nucleated RBC 0.00 Immature Gran % 1 H Nucleated RBC % 0 PT 11.2 INR 1.0 APTT 31.8 Sodium 137 Potassium 4.2 Chloride 105 Carbon Dioxide 25.0 Anion Gap 7 BUN 26 H Creatinine 1.7 H Estim Creat Clear Calc 30.4 L eGFR 31 L BUN/Creatinine Ratio [address] Glu mg/dL 103 Hemoglobin A1c 5.2 Calculated Osmolality 277 Lactic Acid 1.1 Calcium 9.8 Corrected Calcium 9.8 Phosphorus 2.7 Magnesium 1.5 L Iron 9 L TIBC 226 L Iron Saturation 3 L Unsat Iron Binding 217 L Total Bilirubin 0.5 AST 19 ALT 9 L Alkaline Phosphatase 73 Lactate Dehydrogenase 170 Troponin I 0.030 B-Natriuretic Peptide 216 H Total Protein 6.8 Albumin 4.1 Globulin 2.7 Albumin/Globulin Ratio 1.5 Triglycerides 98 Cholesterol 158 LDL Cholesterol, Calc 95 HDL Cholesterol 43 Cholesterol/HDL Ratio 3.7 Lipase 30 Procalcitonin 1.23 H Ur Collection Type Clean Catch Urine Color Lt-Yellow Urine Clarity Hazy Urine pH 5.5 Ur Specific [place] 1.014 Urine Protein 1+ A Urine Glucose (UA) Negative Urine Ketones Negative Urine Blood 2+ A Urine Nitrite Negative Urine Bilirubin Negative Urine Urobilinogen (Auto) Negative Ur Leukocyte Esterase Positive Urine RBC 14 H Urine WBC 240 H Ur Squamous Epith Cells < 1 Urine Bacteria 1+ A Quality Measures Quality Measures VTE prophylaxis Advance care planning discussed with:: patient Assessment & Plan Assessment Current Active Medications: Generic Name Dose Route Start Last Admin Trade Name Freq PRN Reason Stop Dose Admin Acetaminophen 650 mg 03/16/24 08:50 Acetaminophen 325 Mg Tablet PO 04/15/24 06:04 Q6H PRN Fever >100.3 or pain(1-3) Hydrocodone Bitart/Acetaminophen 1 tab 03/16/24 08:50 Hydrocodone/Apap 5/325 Tablet PO 03/21/24 06:04 Q4HR PRN PAIN SCALE 4-6 (Moderate Albuterol/Ipratropium 3 ml 03/16/24 06:05 Albuterol/Ipratropium (Duoneb) Rt Kate 3 Ml Nebu INH 04/15/24 06:04 Q2HR PRN SHORTNESS OF BREATH OR WHEEZE Dextrose 50 ml 03/16/24 06:10 Dextrose 50%-Water Inj 50 Ml Syringe IV 04/15/24 06:09 Q15MIN PRN BG <50 OR BG <70 & pt unresponsive Duloxetine HCl 60 mg 03/16/24 09:00 03/16/24 10:58 Duloxetine Hcl 30 Mg Capsule PO 04/15/24 08:59 60 mg QDAY MARIA DE JESUS Administration Glucagon 1 mg 03/16/24 06:10 Glucagon Inj 1 Mg Vial IM Q15MIN PRN BG <70, and no IV access Heparin Sodium (Porcine) 5,000 unit 03/17/24 09:00 Heparin Sod Inj 5000 Unit/Ml Vial SC 03/31/24 08:59 BID MARIA DE JESUS Hydromorphone HCl 0.5 mg 03/16/24 08:44 Hydromorphone Inj 2 Mg/Ml Vial IVP 03/21/24 08:43 Q4HR PRN PAIN SCALE 7-10 (Severe Ceftriaxone Sodium/Dextrose 50 mls @ 100 mls/hr 03/17/24 09:00 Rocephin/D5w 1gm Iv Premix IV 03/24/24 08:59 QDAY MARIA DE JESUS Sodium Chloride 1,000 mls @ 75 mls/hr 03/16/24 06:55 03/16/24 08:34 Ns IV 03/17/24 06:54 75 mls/hr .[id number] MARIA DE JESUS Administration Insulin Human Lispro 0 unit 03/16/24 07:30 03/16/24 11:27 Insulin Lispro (Admelog) 1 Unit/0.01 Ml Unit SC 04/15/24 07:29 Not Given AC MARIA DE JESUS Protocol Metronidazole 500 mg 03/16/24 11:15 03/16/24 11:07 Metronidazole 250 Mg Tablet PO 03/23/24 11:14 500 mg Q8HR MARIA DE JESUS Administration Ondansetron HCl 4 mg 03/16/24 06:05 Ondansetron Inj 2 Mg/Ml Inj 2 Ml IV 04/15/24 06:04 Q6H PRN NAUSEA OR VOMITING Protocol Pyridostigmine [place] 90 mg 03/16/24 08:00 03/16/24 13:05 Pyridostigmine [place] 60 Mg Tablet PO 04/15/24 07:59 Not Given Q6HR [facility] Trazodone HCl 50 mg 03/16/24 21:00 Trazodone Hcl 50 Mg Tablet PO 04/15/24 20:59 [facility] Plan 73-year-old female with past medical history significant for essential hypertension, insulin-dependent diabetes mellitus type 2, major depressive disorder and myasthenia gravis presenting with a chief complaint of generalized weakness and vomiting, admitted for sepsis secondary to pyelonephritis. #Right pyelonephritis #Vomiting #Generalized weakness #Leukocytosis Patient's denies any dysuria, increased frequency or LUTS. On exam patient has no flank tenderness. On imaging abdomen/pelvis CT significant for right pyelonephritis and distended gallbladder with multiple gallstones. Patient septic: Fever 102.6, WBCs 12.8. -IVF: NS at 75 mL/h x 1 L -Pending urine and blood cultures -Ceftriaxone 1 g IV daily (started 03/16) #HANNA on CKD stage IIIb, prerenal due to dehydration On admission patient's CR 1.7. Previous levels showed creatinine below 1.0. Patient has CKD based on urine albumin creatinine ratio. -Renally dose medication -Avoid nephrotoxic agents. -Monitor daily labs -IVF as above #Cholecystitis on imaging On imaging abdomen/pelvis CT significant for cholecystitis and multiple gallstones Gallbladder ultrasound significant for acute cholecystitis. Clinically patient has no abdominal pain, Wahl's negative and only 1 episode of vomiting. Unlikely to be cholecystitis, most likely just cholelithiasis. -HIDA scan ordered, follow-up #Myasthenia gravis Patient's home medication pyridostigmine 90 Mg p.o. 4 times daily -Resume home medication Prostigmin 90 Mg p.o. 4 times daily #Essential hypertension On admission BP 120/68 Home medication lisinopril 5 Mg p.o. daily -Hold patient's home lisinopril, soft BP #Insulin-dependent diabetes mellitus type 2 Patient's home medication Lantus 20 units SC daily. HbA1c 5.2% Patient's blood sugar has been well-controlled without long-acting insulin. -ISS #Normocytic anemia #Iron deficiency On admission Hb 10.3. From chart review baseline appears to be between 9?10. Iron panel indicative of iron deficiency anemia: Iron 9, TIBC 226, iron saturation 3%, unsaturated iron binding 217. -Outpatient follow-up -Monitor hemoglobin transfuse as needed DVT prophylaxis: Heparin GI prophylaxis: None Diet: Renal, consistent carb, dysphagia 3 Lines: Peripheral IV Code status: Full code Plan of care discussed with senior resident Dr. Briscoe PGY?[address] Regan. Louie Barnett MD PGY?1 Attending Provider Attestation/Addendum I have examined the patient, reviewed labs and imaging findings, discussed the case with the resident(s), and reviewed entered orders. I agree with the plan of care as outlined in this note, with these additional summaries/recommendations: Patient seen at bedside. Patient admitted overnight for right pyelonephritis per imaging and urinalysis. Urine culture and blood cultures taken and pending results. Continue IV Rocephin. Pro-Jared elevated to 1.23 in the setting of HANNA on CKD. Patient on maintenance fluids and repeat renal panel in AM. Ultrasound showed cholelithiasis and no evidence of cholecystitis at this time. Outpatient follow-up for cholelithiasis. Dr. Regan
--- NOTE | 2024-03-16 14:32 | PC.SS ---
Initial assessment: This is 73 year old female admitted for pyelonephritis. Patient appeared alert and oriented. Patient informs she lives at home alone currently as her is a [facility] at the time. Patient assigned her son, Mert as her emergency contact. Patient informs she utilizes a walker to assist with ambulation. Patient has walker at home. Patient states she has home oxygen however not used. Patient informs she follows [facility] for primary care. Patient informs she would like to return home upon discharge. No needs identified at this time. D/c plan: Home Next of kin: sonMert
--- NOTE | 2024-03-16 14:37 | PC.SS ---
Rounding note: patient receiving IV antibiotics.
[2024-03-16] MEDS: traZODone HCL 50 MG TABLET PO (20:00)
[2024-03-16] MEDS: ONDANSETRON INJ 2 MG/ML INJ 2 ML 4 MG IV (22:35)
[2024-03-16] MEDS: HYDROcodone/APAP 5/325 TABLET 1 TAB PO (22:52)
[2024-03-17] VITALS (11 sets, daily range): BP systolic 93–110; BP diastolic 50–55; PULSE 61–113; RESP 16–93; TEMP 36.1–37.4; O2SAT 91–99
[2024-03-17] MEDS: pyRIDostigmine bromide 60 MG TABLET 90 MG PO ×5 (00:03→23:12)
[2024-03-17] MEDS: ALBUTEROL/IPRATROPIUM (Duoneb) RT SOL 3 ML NEBU INH (00:09)
--- NOTE | 2024-03-17 00:10 | XR_ITS ---
Examination: AP chest single view TECHNIQUE: AP portable upright chest single view Exam date and time: March 17, 2024 1237 hours Comparison 11/02/2022 INDICATIONS: Coughing today FINDINGS: Subsegmental atelectasis right base No aspiration pneumonia Normal heart size Moderate elevation right hemidiaphragm Prominent osteopenia IMPRESSION: Negative for aspiration pneumonia
[2024-03-17] MEDS: metroNIDAZOLE 250 MG TABLET 500 MG PO (05:20)
[2024-03-17 06:22] LABS: Basophils % (Auto) 0 % (0-2.5); Eosinophils % (Auto) 0 % (0-10); Hematocrit 28.4 % (36.0-46.0); Hemoglobin 9.5 g/dL (12.0-16.0); Immature Granulocytes % (Auto) 1 % (0-0); Immature Granulocytes Auto 0.22 Thou/mm3 (0.00-0.00); Lymphocytes # (Auto) 0.9 Thou/mm3 (1.0-4.8); Lymphocytes % (Auto) 4 % (10-50); Mean Corpuscular HGB Conc 33.5 g/dl (31.0-37.0); Mean Corpuscular Hemoglobin 31.1 pg (25.0-35.0); Mean Corpuscular Volume 93 fL (80-100); Monocytes # (Auto) 1.4 Thou/mm3 (0.0-0.8); Monocytes % (Auto) 6 % (0-12); Neutrophils # (Auto) 19.9 Thou/mm3 (1.8-7.7); Neutrophils % (Auto) 89 % (37-80); Nucleated Red Blood Cell % 0 /100 WBC (0); Platelet Count 155 Thou/mm3 (140-440); RDW Standard Deviation 46.2 fL (36.4-46.3); Red Blood Count 3.05 Miln/mm3 (4.00-5.20); White Blood Count 22.5 Thou/mm3 (3.6-11.0)
[2024-03-17 06:50] LABS: Anion Gap 8 (7-16); BUN/Creatinine Ratio 19 Ratio (12-20); Blood Urea Nitrogen 42 mg/dL (9-23); Calcium 8.5 mg/dL (8.3-10.6); Carbon Dioxide 21.6 mMol/L (20.0-31.0); Chloride 102 mMol/L (98-107); Creatinine (Component) 2.2 mg/dL (0.6-1.3); Estimated Creatinine Clearance 23.5 mL/min (>60); Glucose 170 mg/dL (74-106); Magnesium 1.7 mg/dL (1.6-2.6); Osmolality,Calculated 279 (275-295); Phosphorous 4.4 mg/dL (2.4-5.1); Potassium 4.8 mMol/L (3.4-5.1); Sodium 132 mMol/L (136-145); Thyroid Stimulating Hormone 0.76 uIU/mL (0.55-4.78); eGFR 23 See Note
[2024-03-17] MEDS: INSULIN LISPRO (AdmeLOG) 1 UNIT/0.01 ML UNIT SC (07:44)
[2024-03-17] MEDS: cefTRIAXone/D5w 1gm IV premix 50 ML IV (08:30)
[2024-03-17] MEDS: DULoxetine HCL 30 MG CAPSULE 60 MG PO (08:30)
[2024-03-17] MEDS: HEPARIN SOD INJ 5000 UNIT/ML VIAL SC ×2 (08:30→21:04)
[2024-03-17] MEDS: SODIUM CHLORIDE 0.9% 1000 ML 1,000 ML 100 ML IV ×2 (11:57→23:53)
[2024-03-17] MEDS: PIPER/TAZO 3.375 GM 50 ML IV ×2 (11:58→21:40)
--- NOTE | 2024-03-17 14:20 | ESPR_ITS ---
<Statement entered by Bereket Briscoe MD - 03/17/24 15:23> Patient was seen and examined at the bedside this morning. Patient is currently admitted for pyelonephritis. Patient's white count got elevated therefore we escalated the antibiotics to Zosyn. Continuing IV fluids at this point. HIDA scan showed no activity. Patient had a fever spike overnight as well. Kidney functions showed worsening as well. Will continue with IV fluids and antibiotics and await clinical improvement. Pending urine cultures and MRSA screen. All labs and orders were reviewed. I saw and examined the patient, and I agree with current management stated by Dr Dr Ericka MD,PGY1. Plan of care was discussed with the attending physician and resident physician. Disclaimer: Despite multiple revisions, due to the dictation software being used, the document bellow may not be free of grammatical errors including phonetic/typographic errors. However, this does not deter from our commitment to providing health care in the patient's best interest in mind. Dr. Rachna MD, PGY 2 Documentation for date of: 03/17/24 Subjective Subjective Interval history: Overnight: Patient complained shortness of breath and significant dry cough, was given a breathing treatment. Chest x-ray was taken. Chest x-ray unremarkable. Patient significantly improved with 1 breathing treatment. Patient seen examined at bedside. Patient reports overall subjective improvement in symptoms. At time of exam, patient denies fevers, chills, shortness of breath, chest pain, vomiting. Patient does endorse mild nausea, not enough to prevent eating. Fevers and increasing WBC overnight. Worsening HANNA. Antibiotics broadened to Zosyn, IVF increased. Exam Vital Signs Temp Pulse Resp BP Pulse Ox O2 Del Method O2 Flow Rate 97.0 F 83 17 98/50 L 99 Nasal Cannula 2 03/17/24 12:00 03/17/24 12:00 03/17/24 12:00 03/17/24 12:00 03/17/24 12:00 03/17/24 12:03/17/24 12:00 Narrative Exam PE: Gen: Well-developed and well-nourished. Mildly ill-appearing. HEENT: NCAT, PERRLA, EOMI, MMM, anicteric conjunctivae. CVS: normal S1 and S2. RRR. No M/R/G. Resp: Lungs clear to auscultation bilaterally. Abd: soft, non-tender, non-distended. MSK: Good ROM in BUE & BLE. No edema or rash. Neuro: CN II-XII grossly intact. Strength 5/5 in BUE & BLE. Alert and oriented x3. Psych: appropriate mood and affect. Objective Labs 03/18/24 04:39 03/18/24 04:39 Labs: Laboratory Results - last 24 hr 03/17/24 05:16 WBC 22.5 H D RBC 3.05 L Hgb 9.5 L Hct 28.4 L MCV 93 MCH 31.1 MCHC 33.5 RDW Std Deviation 46.2 Plt Count 155 D Neut % (Auto) 89 H Lymph % (Auto) 4 L [place] % (Auto) 6 Eos % (Auto) 0 Baso % (Auto) 0 Neut # (Auto) 19.9 H Lymph # (Auto) 0.9 L [place] # (Auto) 1.4 H Eos # (Auto) 0.0 Baso # (Auto) 0.0 Immature Gran # (Auto) 0.22 H Absolute Nucleated RBC 0.00 Immature Gran % 1 H Nucleated RBC % 0 Sodium 132 L Potassium 4.8 D Chloride 102 Carbon Dioxide 21.6 Anion Gap 8 BUN 42 H Creatinine 2.2 H D Estim Creat Clear Calc 23.5 L eGFR 23 L BUN/Creatinine Ratio 19 Glucose 170 H D Calculated Osmolality 279 Calcium 8.5 Phosphorus 4.4 Magnesium 1.7 TSH 0.76 Quality Measures Quality Measures VTE prophylaxis Advance care planning discussed with:: patient Assessment & Plan Assessment Current Active Medications: Generic Name Dose Route Start Last Admin Trade Name Merrickq PRN Reason Stop Dose Admin Acetaminophen 650 mg 03/16/24 08:50 03/16/24 23:33 Acetaminophen 325 Mg Tablet PO 04/15/24 06:04 650 mg Q6H PRN Administration Fever >100.3 or pain(1-3) Hydrocodone Bitart/Acetaminophen 1 tab 03/16/24 08:50 03/16/24 22:52 Hydrocodone/Apap 5/325 Tablet PO 03/21/24 06:04 1 tab Q4HR PRN Administration PAIN SCALE 4-6 (Moderate Albuterol/Ipratropium 3 ml 03/16/24 06:05 03/17/24 00:09 Albuterol/Ipratropium (Duoneb) Rt Kate 3 Ml Nebu INH 04/15/24 06:04 3 ml Q2HR PRN Administration SHORTNESS OF BREATH OR WHEEZE Dextrose 50 ml 03/16/24 06:10 Dextrose 50%-Water Inj 50 Ml Syringe IV 04/15/24 06:09 Q15MIN PRN BG <50 OR BG <70 & pt unresponsive Duloxetine HCl 60 mg 03/16/24 09:00 03/17/24 08:30 Duloxetine Hcl 30 Mg Capsule PO 04/15/24 08:59 60 mg QDAY MARIA DE JESUS Administration Glucagon 1 mg 03/16/24 06:10 Glucagon Inj 1 Mg Vial IM Q15MIN PRN BG <70, and no IV access Heparin Sodium (Porcine) 5,000 unit 03/17/24 09:00 03/17/24 08:30 Heparin Sod Inj 5000 Unit/Ml Vial SC 03/31/24 08:59 5,000 unit BID MARIA DE JESUS Administration Hydromorphone HCl 0.5 mg 03/16/24 08:44 Hydromorphone Inj 2 Mg/Ml Vial IVP 03/21/24 08:43 Q4HR PRN PAIN SCALE 7-10 (Severe Sodium Chloride 1,000 mls @ 100 mls/hr 03/17/24 08:00 03/17/24 11:57 Ns IV 03/17/24 17:58 100 mls/hr .Q10H ONE Administration Piperacillin/Tazobactam/Dextrose 50 mls @ 12.5 mls/hr 03/17/24 22:00 Zosyn IV 03/24/24 21:59 Q8HR [facility] Insulin Human Lispro 0 unit 03/16/24 07:30 03/17/24 10:58 Insulin Lispro (Admelog) 1 Unit/0.01 Ml Unit SC 04/15/24 07:29 Not Given AC [facility] Protocol Ondansetron HCl 4 mg 03/16/24 06:05 03/16/24 22:35 Ondansetron Inj 2 Mg/Ml Inj 2 Ml IV 04/15/24 06:04 4 mg Q6H PRN Administration NAUSEA OR VOMITING Protocol Pyridostigmine [place] 90 mg 03/16/24 08:00 03/17/24 11:58 Pyridostigmine [place] 60 Mg Tablet PO 04/15/24 07:59 90 mg Q6HR MARIA DE JESUS Administration Trazodone HCl 50 mg 03/16/24 21:00 03/16/24 20:00 Trazodone Hcl 50 Mg Tablet PO 04/15/24 20:59 50 mg HS MARIA DE JESUS Administration Plan 73-year-old female with past medical history significant for essential hypertension, insulin-dependent diabetes mellitus type 2, major depressive disorder and myasthenia gravis presenting with a chief complaint of generalized weakness and vomiting, admitted for sepsis secondary to pyelonephritis. #Right pyelonephritis #Vomiting #Generalized weakness #Leukocytosis Patient's denies any dysuria, increased frequency or LUTS. On exam patient has no flank tenderness. On imaging abdomen/pelvis CT significant for right pyelonephritis and distended gallbladder with multiple gallstones. Patient septic: Fever 102.6, WBCs 12.8. Patient given IVF: Normal saline 75 mL/h x 1 week. Patient had another episode of fever overnight, increasing WBCs. Antibiotics broadened from ceftriaxone to Zosyn. If no improvement, will consider further imaging to assess for abscess. -IVF: NS at 100 mL/h x 1 L -Pending urine and blood cultures -Ceftriaxone 1 g IV daily (03/16-03/17) -Zosyn 3.375 g IV 3 times daily (started 03/17) #HANNA on CKD stage IIIb, prerenal due to dehydration On admission patient's CR 1.7. Previous levels showed creatinine below 1.0. Patient has CKD based on urine albumin creatinine ratio. Patient had worsening of HANNA despite IVF x 1 L. Will give additional liter, encourage oral hydration -Renally dose medication -Avoid nephrotoxic agents. -Monitor daily labs -IVF as above #Myasthenia gravis Patient's home medication pyridostigmine 90 Mg p.o. 4 times daily -Resume home medication Prostigmin 90 Mg p.o. 4 times daily #Essential hypertension On admission BP 120/68 Home medication lisinopril 5 Mg p.o. daily -Hold patient's home lisinopril, soft BP #Insulin-dependent diabetes mellitus type 2 Patient's home medication Lantus 20 units SC daily. HbA1c 5.2% Patient's blood sugar has been well-controlled without long-acting insulin. -ISS #Normocytic anemia #Iron deficiency On admission Hb 10.3. From chart review baseline appears to be between 9?10. Iron panel indicative of iron deficiency anemia: Iron 9, TIBC 226, iron saturation 3%, unsaturated iron binding 217. -Outpatient follow-up -Monitor hemoglobin transfuse as needed #Cholelithiasis On imaging abdomen/pelvis CT significant for cholecystitis and multiple gallstones Gallbladder ultrasound significant for acute cholecystitis. Clinically patient has no abdominal pain, Wahl's negative and only 1 episode of vomiting. HIDA scan unremarkable. -Follow-up outpatient DVT prophylaxis: Heparin GI prophylaxis: None Diet: Renal, consistent carb, dysphagia 3 Lines: Peripheral IV Code status: Full code Plan of care discussed with senior resident Dr. Briscoe PGY?[address] Regan. Louie Barnett MD PGY?1 Attending Provider Attestation/Addendum I have examined the patient, reviewed labs and imaging findings, discussed the case with the resident(s), and reviewed entered orders. I agree with the plan of care as outlined in this note. Dr. Regan
[2024-03-17] MEDS: ACETAMINOPHEN 325 MG TABLET 650 MG PO (14:23)
[2024-03-17] MEDS: HYDROcodone/APAP 5/325 TABLET 1 TAB PO (17:35)
[2024-03-17] MEDS: traZODone HCL 50 MG TABLET PO (21:04)
[2024-03-18] VITALS (11 sets, daily range): BP systolic 99–129; BP diastolic 60–88; PULSE 83–118; RESP 19–23; TEMP 36.3–37.2; O2SAT 93–98
--- NOTE | 2024-03-18 03:34 | PC.NURSE ---
MD Nolasco notified that patient is sustaining tachycardia. Her HR went up to low 120s while resting comfortably in bed.
[2024-03-18] MEDS: pyRIDostigmine bromide 60 MG TABLET 90 MG PO ×4 (05:15→23:29)
[2024-03-18] MEDS: PIPER/TAZO 3.375 GM 50 ML IV ×3 (05:15→21:26)
[2024-03-18 05:56] LABS: Basophils % (Auto) 0 % (0-2.5); Eosinophils % (Auto) 0 % (0-10); Hematocrit 26.9 % (36.0-46.0); Hemoglobin 8.9 g/dL (12.0-16.0); Immature Granulocytes % (Auto) 1 % (0-0); Immature Granulocytes Auto 0.12 Thou/mm3 (0.00-0.00); Lymphocytes # (Auto) 0.7 Thou/mm3 (1.0-4.8); Lymphocytes % (Auto) 5 % (10-50); Mean Corpuscular HGB Conc 33.1 g/dl (31.0-37.0); Mean Corpuscular Hemoglobin 30.7 pg (25.0-35.0); Mean Corpuscular Volume 93 fL (80-100); Monocytes # (Auto) 1.3 Thou/mm3 (0.0-0.8); Monocytes % (Auto) 8 % (0-12); Neutrophils # (Auto) 13.7 Thou/mm3 (1.8-7.7); Neutrophils % (Auto) 86 % (37-80); Nucleated Red Blood Cell % 0 /100 WBC (0); Platelet Count 180 Thou/mm3 (140-440); RDW Standard Deviation 47.1 fL (36.4-46.3); White Blood Count 15.9 Thou/mm3 (3.6-11.0)
[2024-03-18 06:39] LABS: Anion Gap 6 (7-16); BUN/Creatinine Ratio 19 Ratio (12-20); Blood Urea Nitrogen 38 mg/dL (9-23); Calcium 8.5 mg/dL (8.3-10.6); Carbon Dioxide 22.3 mMol/L (20.0-31.0); Chloride 107 mMol/L (98-107); Estimated Creatinine Clearance 25.8 mL/min (>60); Glucose 123 mg/dL (74-106); Magnesium 1.8 mg/dL (1.6-2.6); Osmolality,Calculated 280 (275-295); Phosphorous 2.7 mg/dL (2.4-5.1); Potassium 4.3 mMol/L (3.4-5.1); Sodium 135 mMol/L (136-145); eGFR 26 See Note
[2024-03-18] MEDS: HEPARIN SOD INJ 5000 UNIT/ML VIAL SC ×2 (08:05→21:26)
[2024-03-18] MEDS: DULoxetine HCL 30 MG CAPSULE 60 MG PO (08:06)
--- NOTE | 2024-03-18 13:38 | ESPR_ITS ---
<Statement entered by Bereket Briscoe MD - 03/18/24 17:04> Patient was seen and examined at the bedside. Patient was doing well. We are currently continuing IV Zosyn for urine cultures growing GNR. Final cultures are pending. Will follow-up with the. WBC count and kidney functions are improving. Additionally continue IV fluids. All labs and orders were reviewed. I saw and examined the patient, and I agree with current management stated by Dr Ericka MD,PGY1. Plan of care was discussed with the attending physician and resident physician. Disclaimer: Despite multiple revisions, due to the dictation software being used, the document bellow may not be free of grammatical errors including phonetic/typographic errors. However, this does not deter from our commitment to providing health care in the patient's best interest in mind. Dr. Rachna MD, PGY 2 Documentation for date of: 03/18/24 Subjective Subjective Interval history: No overnight events. Patient seen and examined at bedside. Patient complaining of lethargy, had poor sleep last night. Denies fevers, chills, shortness of breath, chest pain, nausea, vomiting. Continue IV antibiotics, await speciation. Continue to eval fluid requirements. PT eval pending. Exam Vital Signs Temp Pulse Resp BP Pulse Ox O2 Del Method O2 Flow Rate 97.9 F 103 H 20 126/72 95 Nasal Cannula 2 03/18/24 12:00 03/18/24 12:00 03/18/24 12:00 03/18/24 12:00 03/18/24 12:00 03/18/24 12:03/18/24 12:00 Narrative Exam PE: Gen: Well-developed and well-nourished. Mildly ill-appearing. HEENT: NCAT, PERRLA, EOMI, MMM, anicteric conjunctivae. CVS: normal S1 and S2. RRR. No M/R/G. Resp: Lungs clear to auscultation bilaterally. Abd: soft, non-tender, non-distended. MSK: Good ROM in BUE & BLE. No edema or rash. Neuro: CN II-XII grossly intact. Strength 5/5 in BUE & BLE. Alert and oriented x3. Mildly lethargic. Psych: appropriate mood and affect. Objective Labs 03/19/24 04:39 03/19/24 04:39 Labs: Laboratory Results - last 24 hr 03/18/24 04:39 WBC 15.9 H D RBC 2.90 L Hgb 8.9 L Hct 26.9 L MCV 93 MCH 30.7 MCHC 33.1 RDW Std Deviation 47.1 H Plt Count 180 Neut % (Auto) 86 H Lymph % (Auto) 5 L [place] % (Auto) 8 Eos % (Auto) 0 Baso % (Auto) 0 Neut # (Auto) 13.7 H Lymph # (Auto) 0.7 L [place] # (Auto) 1.3 H Eos # (Auto) 0.0 Baso # (Auto) 0.0 Immature Gran # (Auto) 0.12 H Absolute Nucleated RBC 0.00 Immature Gran % 1 H Nucleated RBC % 0 Sodium 135 L Potassium 4.3 D Chloride 107 Carbon Dioxide 22.3 Anion Gap 6 L BUN 38 H Creatinine 2.0 H Estim Creat Clear Calc 25.8 L eGFR 26 L BUN/Creatinine Ratio 19 Glucose 123 H Calculated Osmolality 280 Calcium 8.5 Phosphorus 2.7 Magnesium 1.8 Quality Measures Quality Measures VTE prophylaxis Advance care planning discussed with:: patient Assessment & Plan Assessment Current Active Medications: Generic Name Dose Route Start Last Admin Trade Name Freq PRN Reason Stop Dose Admin Acetaminophen 650 mg 03/16/24 08:50 03/17/24 14:23 Acetaminophen 325 Mg Tablet PO 04/15/24 06:04 650 mg Q6H PRN Administration Fever >100.3 or pain(1-3) Hydrocodone Bitart/Acetaminophen 1 tab 03/16/24 08:50 03/17/24 17:35 Hydrocodone/Apap 5/325 Tablet PO 03/21/24 06:04 1 tab Q4HR PRN Administration PAIN SCALE 4-6 (Moderate Albuterol/Ipratropium 3 ml 03/16/24 06:05 03/17/24 00:09 Albuterol/Ipratropium (Duoneb) Rt Kate 3 Ml Nebu INH 04/15/24 06:04 3 ml Q2HR PRN Administration SHORTNESS OF BREATH OR WHEEZE Dextrose 50 ml 03/16/24 06:10 Dextrose 50%-Water Inj 50 Ml Syringe IV 04/15/24 06:09 Q15MIN PRN BG <50 OR BG <70 & pt unresponsive Duloxetine HCl 60 mg 03/16/24 09:00 03/18/24 08:06 Duloxetine Hcl 30 Mg Capsule PO 04/15/24 08:59 60 mg QDAY MARIA DE JESUS Administration Glucagon 1 mg 03/16/24 06:10 Glucagon Inj 1 Mg Vial IM Q15MIN PRN BG <70, and no IV access Heparin Sodium (Porcine) 5,000 unit 03/17/24 09:00 03/18/24 08:05 Heparin Sod Inj 5000 Unit/Ml Vial SC 03/31/24 08:59 5,000 unit BID MARIA DE JESUS Administration Hydromorphone HCl 0.5 mg 03/16/24 08:44 Hydromorphone Inj 2 Mg/Ml Vial IVP 03/21/24 08:43 Q4HR PRN PAIN SCALE 7-10 (Severe Piperacillin/Tazobactam/Dextrose 50 mls @ 12.5 mls/hr 03/17/24 22:00 03/18/24 13:19 Zosyn IV 03/24/24 21:59 12.5 mls/hr Q8HR MARIA DE JESUS Administration Insulin Human Lispro 0 unit 03/16/24 07:30 03/18/24 11:10 Insulin Lispro (Admelog) 1 Unit/0.01 Ml Unit SC 04/15/24 07:29 Not Given AC MARIA DE JESUS Protocol Ondansetron HCl 4 mg 03/16/24 06:05 03/16/24 22:35 Ondansetron Inj 2 Mg/Ml Inj 2 Ml IV 04/15/24 06:04 4 mg Q6H PRN Administration NAUSEA OR VOMITING Protocol Pyridostigmine [place] 90 mg 03/16/24 08:00 03/18/24 12:27 Pyridostigmine [place] 60 Mg Tablet PO 04/15/24 07:59 90 mg Q6HR MARIA DE JESUS Administration Trazodone HCl 50 mg 03/16/24 21:00 03/17/24 21:04 Trazodone Hcl 50 Mg Tablet PO 04/15/24 20:59 50 mg HS MARIA DE JESUS Administration Plan 73-year-old female with past medical history significant for essential hypertension, insulin-dependent diabetes mellitus type 2, major depressive disorder and myasthenia gravis presenting with a chief complaint of generalized weakness and vomiting, admitted for sepsis secondary to pyelonephritis. #Right pyelonephritis #Generalized weakness #Leukocytosis Patient's denies any dysuria, increased frequency or LUTS. On exam patient has no flank tenderness. On imaging abdomen/pelvis CT significant for right pyelonephritis and distended gallbladder with multiple gallstones. Patient septic: Fever 102.6, WBCs 12.8. Patient given IVF: Normal saline 75 mL/h x 1 week. Patient had another episode of fever overnight, increasing WBCs. Antibiotics broadened from ceftriaxone to Zosyn. If no improvement, will consider further imaging to assess for abscess. Received IVF NS at 100 mL/h x 1 L. Additional liter at same rate ordered due to soft BP, tachycardia. Urine cultures showed 2 separate gram-negative debi species, awaiting speciation. -Pending urine and blood cultures -Ceftriaxone 1 g IV daily (03/16-03/17) -Zosyn 3.375 g IV 3 times daily (started 03/17) #HANNA on CKD stage IIIb, prerenal due to dehydration, improving On admission patient's CR 1.7. Previous levels showed creatinine below 1.0. Patient has CKD based on urine albumin creatinine ratio. Patient had worsening of HANNA despite IVF x 1 L. Will give additional liter, encourage oral hydration. -Continue IVF as deemed appropriate -Renally dose medication -Avoid nephrotoxic agents. -Monitor daily labs #Myasthenia gravis Patient's home medication pyridostigmine 90 Mg p.o. 4 times daily -Resume home medication Prostigmin 90 Mg p.o. 4 times daily -Avoid treatment that can trigger MG #Insomnia Patient takes trazodone for sleep nightly. -Resume home trazodone 50 mg p.o. at bedtime #Essential hypertension On admission BP 120/68 Home medication lisinopril 5 Mg p.o. daily -Hold patient's home lisinopril, soft BP #Insulin-dependent diabetes mellitus type 2 Patient's home medication Lantus 20 units SC daily. HbA1c 5.2% Patient's blood sugar has been well-controlled without long-acting insulin. -ISS #Normocytic anemia #Iron deficiency On admission Hb 10.3. From chart review baseline appears to be between 9?10. Iron panel indicative of iron deficiency anemia: Iron 9, TIBC 226, iron saturation 3%, unsaturated iron binding 217. -Outpatient follow-up -Monitor hemoglobin transfuse as needed #Cholelithiasis On imaging abdomen/pelvis CT significant for cholecystitis and multiple gallstones Gallbladder ultrasound significant for acute cholecystitis. Clinically patient has no abdominal pain, Wahl's negative and only 1 episode of vomiting. HIDA scan unremarkable. -Follow-up outpatient DVT prophylaxis: Heparin GI prophylaxis: None Diet: Renal, consistent carb, dysphagia 3 Lines: Peripheral IV Code status: Full code Plan of care discussed with senior resident Dr. Briscoe PGY?[address] Regan. Louie Barnett MD PGY?1 Attending Provider Attestation/Addendum I have examined the patient, reviewed labs and imaging findings, discussed the case with the resident(s), and reviewed entered orders. I agree with the plan of care as outlined in this note, with these additional summaries/recommendations: Patient seen at bedside. No acute overnight events. Today patient reports improvement in flank pain and reports overall feeling better. She does endorse generalized weakness and we will obtain physical therapy consultation. Patient admitted for right pyelonephritis per imaging and urinalysis. Urine culture prelim showing GNR X 2 and blood cultures show no growth at 48 hours. Leukocytosis improving although not resolved. Continue IV zosyn pending final cx results. Pro-Jared elevated to 1.23 in the setting of HANNA on CKD. Patient on maintenance fluids and repeat renal panel in AM. Ultrasound showed cholelithiasis and no evidence of cholecystitis at this time. Outpatient follow-up for cholelithiasis. Dr. Regan
--- NOTE | 2024-03-18 14:30 | PC.NURSE ---
Notified doctor patients heart rate went up to 145. I went to check on patient. Patient having anxiety, she wants to go home. Checked patient vitals are stable. Doctor Tami Darden at bedside talking to patient. Demetria sure in place for safety. Will continue to monitor patient.
--- NOTE | 2024-03-18 14:44 | PC.SS ---
Rounding note: pending cultures.
[2024-03-18] MEDS: traZODone HCL 50 MG TABLET PO (21:26)
[2024-03-18] MEDS: hydrOXYzine HCL 10 MG TABLET PO (23:29)
[2024-03-19] VITALS: BP 115/68; PULSE 82; PULSE 88; RESP 20; TEMP 36.6; O2SAT 98
[2024-03-19 04:00] VITALS: BP 127/74; PULSE 100; PULSE 89; RESP 20; TEMP 36.8; O2SAT 97
[2024-03-19] MEDS: PIPER/TAZO 3.375 GM 50 ML IV (05:22)
[2024-03-19] MEDS: pyRIDostigmine bromide 60 MG TABLET 90 MG PO (05:22)
[2024-03-19 05:52] LABS: Basophils % (Auto) 0 % (0-2.5); Eosinophils % (Auto) 0 % (0-10); Hematocrit 27.4 % (36.0-46.0); Immature Granulocytes % (Auto) 1 % (0-0); Immature Granulocytes Auto 0.07 Thou/mm3 (0.00-0.00); Lymphocytes # (Auto) 1.5 Thou/mm3 (1.0-4.8); Lymphocytes % (Auto) 14 % (10-50); Mean Corpuscular HGB Conc 32.1 g/dl (31.0-37.0); Mean Corpuscular Volume 94 fL (80-100); Monocytes # (Auto) 1.2 Thou/mm3 (0.0-0.8); Monocytes % (Auto) 11 % (0-12); Neutrophils # (Auto) 7.8 Thou/mm3 (1.8-7.7); Neutrophils % (Auto) 74 % (37-80); Nucleated Red Blood Cell % 0 /100 WBC (0); Platelet Count 187 Thou/mm3 (140-440); RDW Standard Deviation 47.6 fL (36.4-46.3); Red Blood Count 2.93 Miln/mm3 (4.00-5.20); White Blood Count 10.6 Thou/mm3 (3.6-11.0)
[2024-03-19 05:58] LABS: Hemoglobin 8.8 g/dL (12.0-16.0)
[2024-03-19 06:45] LABS: Alanine Aminotransferase < 7 U/L (10-49); Albumin, Serum 3.3 gm/dL (3.4-4.8); Albumin/Globulin Ratio 1.5 (1.2-2.2); Alkaline Phosphatase 62 U/L (46-116); Anion Gap 7 (7-16); Aspartate Amino Transferase < 8 U/L (0-34); BUN/Creatinine Ratio 17 Ratio (12-20); Bilirubin,Total 0.4 mg/dL (0.3-1.2); Blood Urea Nitrogen 30 mg/dL (9-23); Calcium (Corrected) 9.6 mg/dL (8.5-10.1); Carbon Dioxide 23.5 mMol/L (20.0-31.0); Chloride 106 mMol/L (98-107); Creatinine (Component) 1.8 mg/dL (0.6-1.3); Estimated Creatinine Clearance 28.7 mL/min (>60); Globulin 2.2 gm/dL (2.3-3.5); Glucose 94 mg/dL (74-106); Osmolality,Calculated 278 (275-295); Phosphorous 2.3 mg/dL (2.4-5.1); Potassium 4.3 mMol/L (3.4-5.1); Sodium 136 mMol/L (136-145); Total Protein 5.5 gm/dL (5.7-8.2); eGFR 29 See Note
[2024-03-19 08:00] VITALS: BP 133/67; PULSE 80; PULSE 85; RESP 16; TEMP 36.3; O2SAT 98
[2024-03-19 08:55] VITALS: PULSE 86; RESP 18; O2SAT 98; O2SAT 99
[2024-03-19] MEDS: NAPH,KPH MBDB 1 PACKET (1.5 GM) PO (08:59)
[2024-03-19] MEDS: DULoxetine HCL 30 MG CAPSULE 60 MG PO (08:59)
[2024-03-19] MEDS: HEPARIN SOD INJ 5000 UNIT/ML VIAL SC (09:00)
[2024-03-19] MEDS: CIPROFLOXACIN HCL 250 MG TABLET PO (09:00)
[2024-03-19 12:00] VITALS: BP 117/65; PULSE 86; PULSE 97; RESP 16; TEMP 36.8; O2SAT 98
--- NOTE | 2024-03-19 13:14 | ESDS_ITS ---
Planned Discharge Date 03/19/24 DS: Providers Provider Date of admission: 03/16/24 06:06 Primary care physician: Physician No Primary/Family Admitting Provider: Elias Farias DO Attending Provider on Admission: Elias Farias DO Consults: 03/18/24 13:33 Referral Physical Therapy Routine Comment: Physician Instructions: Attending Provider on DC: Jesenia Montanez MD Discharging Provider: Jesenia Montanez MD DS: Diagnosis Problem List Completed Was Problem List Reviewed/Reconciled?: Yes Hospital Course Hospital Course Hospital course: Summary: 73-year-old female with past medical history significant for essential hypertension, insulin-dependent diabetes mellitus type 2, major depressive disorder and myasthenia gravis presenting with a chief complaint of generalized weakness and vomiting, and was admitted on 03/16/2024 for right pyelonephritis and urine culture grew E. Coli and Klebsiella pneumoniae. ER Course: Vitals: BP 128/68, P92, RR 19, temp 102.6 F, SpO2 98% on room air. Labs significant for Hb 10.3, HCT 31.1, WBC 12.8, BUN 26, CR 1.7, Mg 1.5, Pro- Jared 1.23. Urinalysis significant for 1+ protein, 2+ blood and leukocyte esterase positive. EKG significant for sinus rhythm, rate 86. No acute ST changes. Chest x-ray negative for any consolidation, pulmonary edema or pleural effusion. Abdomen/pelvis CT significant for right pyelonephritis and distended gallbladder with multiple gallstones . In ED patient received acetaminophen 650 Mg p.o. x 1, ketorolac 30 Mg IV x 1, ceftriaxone 1 g IV x 1 and Zosyn 3.375 g IV x 1. Hospital Course: Patient was admitted on 03/16/2024 for right pyelonephritis as noted on CT showing perinephric stranding, and presenting with costovertebral angle tenderness and nausea and vomiting. In addition patient presented with leukocytosis likely secondary to urinary tract infection and contributing to pyelonephritis. Patient was started on antibiotics empirically. Urine cultures tested positive for E. coli and Klebsiella pneumoniae transition patient to oral antibiotics of ciprofloxacin. Please complete antibiotic course as noted in instructions. Blood cultures negative after 48 hours. HANNA on CKD stage IIIb likely secondary to prerenal dehydration given poor oral intake from infection initially started on IV fluids. Physical therapy referral made inpatient recommended that patient can may return safely home. Normocytic anemia noted secondary to iron deficiency, please follow up with your primary care provider. Cholelithiasis, noted on CT, with multiple stones. Negative Wahl sign. Please follow up with primary care provider. Instructions: -Please continue Ciprofloxacin 500 mg oral twice daily for 10 more days urinary tract infection -Please drink plenty of fluids -Please continue with Glargine 20 units once a day for diabetes mellitus type II, your levels have been well controlled in the hospital. Please follow up with our primary care provider as you may need to go down on your Glargine -Please continue Pioglitazone 30 mg Qday for your diabetes mellitus -Please continue all your medication for myasthenia gravis as prescribed. -Fasting Glucose goal of 80-130 in the morning prior to breakfast and goal of under 200 after meals. -Please follow up with your primary care provider within one week of discharge -Please continue the rest of your medicaton as prescribed. -If your symptoms worsen,please seek immediate medical attention and return to your nearest emergency room -If you do not have a primary care provider, you may follow up at the [facility] at [address] [place] [address] [address], [place] [address], Disposition: Home with home health. #Right pyelonephritis, improved. #Generalized weakness, improved. #Leukocytosis, resolved. #HANNA on CKD stage IIIb, prerenal due to dehydration, improving #Myasthenia gravis #Insomnia #Essential hypertension #Insulin-dependent diabetes mellitus type 2 #Normocytic anemia #Iron deficiency #Cholelithiasis - The patient's plan was discussed with attending Dr. Regan and senior residents Dr. David Montanez MD PGY1 Internal Medicine Time Spent with Patient Time attestation: Total time spent providing and/or coordinating discharge services: at least 35 minutes of care and coordination. Exam Vital Signs Temp Pulse Resp BP Pulse Ox O2 Del Method O2 Flow Rate 98.2 F 86 16 117/65 98 Nasal Cannula 1 03/19/24 12:00 03/19/24 12:00 03/19/24 12:00 03/19/24 12:00 03/19/24 12:00 03/19/24 12:00 03/19/24 12:00 Narrative Exam General Appearance: Alert & Oriented X3, well-nourished female who is lying in bed in no acute distress HEENT: Skull symmetrical and atraumatic. Conjunctivae pale pink and moist. Pup ils equal, round, reactive to light and accommodation (PERRL). External ear without lesion or discharge. Straight, nares patient, mucosa pink, no discharge. Cardio: Normal Rate and Rhythm with S1 and S2 heart sounds. No murmurs or extra heart sounds auscultated. No bruits on carotid auscultation. No peripheral edema or cyanosis. Lungs: Symmetric with good expansion. Chest and back non-tender. Breath sounds vesicular without crackles, wheezing or rhonchi Abdomen: Non-tender, Non-distended, Normal Reactive Bowel Sounds Neuro: Alert, cooperative, oriented to person, place, and time. Speech clear. CN grossly intact. Upper motor strength 5/5 and Lower motor strength 5/5. Sensation intact. Discharge Plan Plan Patient Disposition: Home w/HOME HEALTH Patient condition on transfer: Stable Care Plan Goals: Instructions: -Please continue Ciprofloxacin 500 mg oral twice daily for 10 more days urinary tract infection -Please drink plenty of fluids -Please continue with Glargine 20 units once a day for diabetes mellitus type II, your levels have been well controlled in the hospital. Please follow up with our primary care provider as you may need to go down on your Glargine -Please continue Pioglitazone 30 mg Qday for your diabetes mellitus -Please continue all your medication for myasthenia gravis as prescribed. -Fasting Glucose goal of 80-130 in the morning prior to breakfast and goal of under 200 after meals. -Please follow up with your primary care provider within one week of discharge -Please continue the rest of your medicaton as prescribed. -If your symptoms worsen,please seek immediate medical attention and return to your nearest emergency room -If you do not have a primary care provider, you may follow up at the [facility] at [address], [place] [address], Disposition: Home with home health. Prescriptions/Referrals Prescriptions/Med Rec: New ciprofloxacin HCl 500 mg tablet 500 mg PO BID Qty: 20 0RF Continued trazodone 50 mg tablet 50 mg PO HS PRN (Reason: Insomnia) Patient Comments: take 1 tablet by mouth at bedtime if needed for insomnia pyridostigmine bromide 60 mg tablet 90 mg PO QID Patient Comments: 1 AND 1/2 tablet by mouth four times a day Rx Instructions: 1 and 1/2 tablet 4 times a day hydroxyzine HCl 25 mg tablet 25 mg PO BID PRN (Reason: Allergy Symptoms) Patient Comments: take 1 tablet by mouth twice a day if needed pioglitazone 30 mg tablet 30 mg PO QDAY Patient Comments: take 1 tablet by mouth once daily insulin glargine [Lantus Solostar U-100 Insulin] 100 unit/mL (3 mL) insulin pen 20 unit SUBCUT QDAY Patient Comments: inject 20 units subcutaneously once daily duloxetine 60 mg capsule,delayed release(DR/EC) 60 mg PO QDAY Patient Comments: take 1 capsule by mouth once daily Discontinued cephalexin 500 mg capsule 500 mg PO Q12HR Patient Comments: take 1 capsule by mouth every 12 hours lisinopril 5 mg tablet 5 mg PO QDAY Patient Comments: take 1 tablet by mouth once daily Referrals: No Primary/Family,Physician [Primary Care Provider] - Patient/Caregiver Discharge Instructions Discharge Activity: activity as tolerated Education Materials: Urinary Tract Infections in Women, Acute Kidney Failure Dc Print Language: Luxembourgish Stand Alone Forms: [employer]lysia Award Info., Patient Portal Info Letter Discharge Order Discharge Orders: Discharge (Routine); Ordered 03/19/24 Ordered By: Hiram Hernandez Quality Discharge Quality Measures VTE prophylaxis MD Attestestation MD Attestation I have examined the patient, reviewed labs and imaging findings, discussed the case with the resident(s), and reviewed entered orders. I agree with the plan of care as outlined in this note. Dr. Regan
--- NOTE | 2024-03-19 19:35 | PC.CM ---
Addendum entered by Leila Dennison RN 03/21/24 12:50: Patient accepted by [facility]. Start of care date 03/22. Original Note: No documentation from [facility] on pt. preference of HH agency. HH referral sent on [facility]. Awaiting responses. Pending Start of care date.
== END 2024-03-19 13:32 | disposition home health service (06) | DRG 690 ==
LOC: SERX 03-16 06:16 → SERHOLD 03-16 06:39 → S3NX 03-16 07:57
PROVIDERS: Registered Nurse General Practice; Admitting Provider Student in an Organized Health Care Education/Training Program; Emergency Provider Emergency Medicine; Visit Provider Student in an Organized Health Care Education/Training Program
DX: N10 Acute pyelonephritis (principal); K80.00 Calculus of gallbladder with acute cholecystitis without obstruction; K82.8 Other specified diseases of gallbladder; F32.9 Major depressive disorder, single episode, unspecified; G70.00 Myasthenia gravis without (acute) exacerbation; N18.32 Chronic kidney disease, stage 3b; I12.9 Hypertensive chronic kidney disease with stage 1 through stage 4 chronic kidney disease, or unspecified chronic kidney disease; E11.22 Type 2 diabetes mellitus with diabetic chronic kidney disease; Z79.4 Long term (current) use of insulin; D63.1 Anemia in chronic kidney disease; E78.5 Hyperlipidemia, unspecified; B96.20 Unspecified Escherichia coli [E. coli] as the cause of diseases classified elsewhere; B96.1 Klebsiella pneumoniae [K. pneumoniae] as the cause of diseases classified elsewhere; N17.9 Acute kidney failure, unspecified; G47.00 Insomnia, unspecified
CPT/HCPCS: 36415; 71045; 74176; 76705; 78227; 80048; 80053; 80061; 81001; 83036; 83540; 83550; 83605; 83615; 83690; 83735; 83880; 84100; 84145; 84443; 84484; 85025; 85610; 85730; 87040; 87077; 87081; 87086; 87186; 87400; 87811; 92610; 93005; 94640; 96365; 96367; 96375; 99291; A9270; A9537; J0696; J1643; J1815; J1885; J2405; J2543; J7030; J7050

== ENCOUNTER 2024-04-19 05:27 | Inpatient (IN) | payer MEDICARE, SELFPAY ==
[2024-04-19] VITALS (20 sets, daily range): BP systolic 93–203; BP diastolic 42–125; PULSE 58–95; RESP 12–97; TEMP 36.5–37.3; O2SAT 92–100; BMI 21.6
--- NOTE | 2024-04-19 05:57 | XR_ITS ---
Examination: Abdomen sonogram, Limited Date and time of exam: April 19, 2024 0847 hrs. Indications: Epigastric pain beginning 2 days ago Technique: Real-time finn scale transabdominal sonographic images of the upper abdomen obtained. Findings: Multiple gallstones Gallbladder wall 1.8 cm with edema Common bile duct 0.4 cm Pancreatic head 3.1 cm Mildly dilated pancreatic duct 0.4 cm Liver 14.6 cm lobular contour Normal hepatopedal portal venous oh Patent IVC Impression: Acute calculus cholecystitis Mildly dilated pancreatic duct
--- NOTE | 2024-04-19 05:57 | XR_ITS ---
Examination: CT abdomen and pelvis without contrast. Coronal 3-D reconstructions. Sagittal 2-D reconstructions. Date and time of exam: April 19, 2024 0629 hrs. Indications: Right flank pain beginning 7 hours ago Right pyelonephritis cystitis on CT examination abdomen and pelvis March 15, 2024 CTDI: vol (mGy): 6.60 DLP: (mGycm): 350 Technique: Axial images of the abdomen have been obtained, 3 mm slice thickness Intravenous contrast material has not been administered. Low dose protocols were performed. One or more of the following dose reduction techniques were used; automated exposure control, adjustment of the mA and/or KV according to patient size, use of iterative reconstruction technique. Findings: Liver is irregular in contour Mild fluid in the abdomen and peripheral to the liver Abnormal gallbladder, gallstones, the gallbladder is distended and the wall appears thickened Spleen is not enlarged No adrenal mass Perinephric stranding, no hydronephrosis Abdominal aortic calcification no aneurysmal dilatation Normal appendix Colonic diverticulosis, with significant wall thickening of the sigmoid colon, axial image 176 and early inflammatory change No peridiverticular abscess Urinary bladder intact Severe osteopenia with diffuse advanced lumbar degenerative disc disease Impression: Abnormal gallbladder, gallstones, distended gallbladder with gallbladder wall thickening, recommend gallbladder sonography follow-up to exclude acute cholecystitis Suspicious for mild acute sigmoid diverticulitis, no peridiverticular abscess
[2024-04-19] MEDS: SODIUM CHLORIDE 0.9% 1000 ML 1,000 ML 999 ML IV (06:11)
[2024-04-19] MEDS: ONDANSETRON INJ 2 MG/ML INJ 2 ML 4 MG IV ×2 (06:12→08:21)
[2024-04-19] MEDS: MORPHINE SULF INJ 10 MG/ML VIAL 2 MG IVP (06:12)
[2024-04-19 07:11] LABS: Basophils # (Auto) 0.1 Thou/mm3 (0.0-0.2); Basophils % (Auto) 0 % (0-2.5); Eosinophils % (Auto) 0 % (0-10); Hematocrit 35.7 % (36.0-46.0); Hemoglobin 11.6 g/dL (12.0-16.0); Immature Granulocytes % (Auto) 0 % (0-0); Immature Granulocytes Auto 0.07 Thou/mm3 (0.00-0.00); Lymphocytes # (Auto) 1.4 Thou/mm3 (1.0-4.8); Lymphocytes % (Auto) 7 % (10-50); Mean Corpuscular HGB Conc 32.5 g/dl (31.0-37.0); Mean Corpuscular Hemoglobin 29.8 pg (25.0-35.0); Mean Corpuscular Volume 92 fL (80-100); Monocytes % (Auto) 5 % (0-12); Neutrophils # (Auto) 16.6 Thou/mm3 (1.8-7.7); Neutrophils % (Auto) 87 % (37-80); Nucleated Red Blood Cell % 0 /100 WBC (0); Platelet Count 307 Thou/mm3 (140-440); RDW Standard Deviation 44.8 fL (36.4-46.3); Red Blood Count 3.89 Miln/mm3 (4.00-5.20); White Blood Count 19.1 Thou/mm3 (3.6-11.0)
[2024-04-19] MEDS: cloNIDine HCL 0.1 MG TABLET 0.3 MG PO (07:37)
[2024-04-19 08:14] LABS: Alanine Aminotransferase < 7 U/L (10-49); Albumin, Serum 4.5 gm/dL (3.4-4.8); Alkaline Phosphatase 93 U/L (46-116); Amylase 35 U/L (30-118); Anion Gap 9 (7-16); Aspartate Amino Transferase 22 U/L (0-34); BUN/Creatinine Ratio 13 Ratio (12-20); Bilirubin,Direct < 0.1 mg/dL (0.0-0.3); Bilirubin,Total 0.3 mg/dL (0.3-1.2); Blood Urea Nitrogen 18 mg/dL (9-23); Calcium 9.9 mg/dL (8.3-10.6); Carbon Dioxide 25.6 mMol/L (20.0-31.0); Chloride 102 mMol/L (98-107); Creatinine (Component) 1.4 mg/dL (0.6-1.3); Estimated Creatinine Clearance 31.2 mL/min (>60); Glucose 92 mg/dL (74-106); Lipase 34 U/L (12-53); Magnesium 1.9 mg/dL (1.6-2.6); Osmolality,Calculated 275 (275-295); Potassium 4.6 mMol/L (3.4-5.1); Sodium 137 mMol/L (136-145); Total Protein 7.5 gm/dL (5.7-8.2); eGFR 39 See Note
[2024-04-19] MEDS: METOPROLOL TARTRATE 25 MG TABLET 12.5 MG PO (08:19)
[2024-04-19] MEDS: MORPHINE SULF INJ 10 MG/ML VIAL 4 MG IVP (08:20)
[2024-04-19 08:22] LABS: Collection Type, Urine Clean Catch; Squamous Epithelial Cell,Urine 0 /hpf (0-5)
[2024-04-19 08:36] LABS: Bacteria,Urine Rare; Bilirubin,Urine Negative (Negative); Blood,Urine Trace (Negative); Clarity,Urine Clear (Clear/Hazy); Color,Urine Colorless (Lt Yel-Yel); Glucose, Urine Negative (Negative); Ketones,Urine Negative (Negative); Leukocyte Esterase,Urine Negative (Negative); Nitrite,Urine Negative (Negative); Protein,Urine Negative (Neg - Trace); RBC,Urine 4 /hpf (0-3); Specific Gravity,Urine 1.009 (1.001-1.035); Urobilinogen,Urine Negative mg/dL (0.0-1.0); WBC,Urine 11 /hpf (0-5)
--- NOTE | 2024-04-19 08:38 | PD.EDABDPN ---
ED Abdominal Pain RME/HPI General Chief Complaint: Abdominal Pain Stated complaint: RIGHT RIB AREA PAIN/ FLANK PAIN Time seen by provider: 04/19/24 05:55 Arrival date/time: 04/19/24 05:27 Source: patient Mode of arrival: EMS RME / HPI RME / HPI narrative: This section includes all my notes and documentations, including HPI, PE, and ED course. Carlito Chand MD HPI: 73-year-old female here with several days of abdominal pain. Severely worse in the past few hours, called EMS. Localizes the pain in the RUQ and epigastric regions. Reports sharp and stabbing pain. Some nausea, no vomiting. Thought she ate normally last night. No urinary symptoms. Had hysterectomy in the past. No other abdominal surgery. No other complaints. ROS: All negative except as documented in HPI. Physical Exam: General: Alert and oriented. In obvious pain. High BP noted. Eyes: Conjunctivae and lids clear. ENT: No nasal congestion. Neck: Supple. Heart: RRR. Lungs: No respiratory distress. Good air movement. No rhonchi, wheezing, rales. Abdomen: Soft with epigastric/RUQ tenderness. Decreased bowel sounds. No distension. No rebound or guarding. Back: No CVA tenderness. Legs: No clubbing, cyanosis, edema. Skin: Warm and dry. Neuro: Alert and oriented X 3. I reviewed all diagnostic test results. My review of the GB ultrasound report is no acute cholecystitis. My review of the abdominal CT report is acute cholecystitis. Blood tests and urine tests remarkable for WBC 19.1. At this point, diagnoses include acute cholecystitis and hypertensive urgency. Treatment here included IV fluid and Zofran and morphine and Zosyn and metoprolol and clonidine. I discussed the case with our surgeon (Dr. Dominguez) and our hospitalist. About the presentation and exam and diagnostics and treatments here. And need of further care in the hospital. Will accept the patient. Carlito Chand MD Related Data Home Medications ?Medication ?Instructions ?Recorded ?Confirmed duloxetine 60 mg capsule,delayed 60 mg PO QDAY 03/16/24 03/16/24 release hydroxyzine HCl 25 mg tablet 25 mg PO BID PRN Allergy Symptoms 03/16/24 03/16/24 insulin glargine 100 unit/mL (3 20 unit subcut QDAY 03/16/24 03/16/24 mL) subcutaneous pen (Lantus Solostar U-100 Insulin) pioglitazone 30 mg tablet 30 mg PO QDAY 03/16/24 03/16/24 pyridostigmine bromide 60 mg tablet 90 mg PO QID 03/16/24 03/16/24 trazodone 50 mg tablet 50 mg PO HS PRN Insomnia 03/16/24 03/16/24 Previous Rx's ?Medication ?Instructions ?Recorded ciprofloxacin HCl 500 mg tablet 500 mg PO BID #20 tabs 03/19/24 Allergies Allergy/AdvReac Type Severity Reaction Status Date / Time Sulfa (Sulfonamide Allergy Severe Hives Verified 11/02/22 06:03 Antibiotics) Course Quality Measures none Orders Category Date Time Status Admit to Inpatient Status Routine Admission 04/19/24 10:21 Active Patient Condition Routine Admission 04/19/24 10:21 Ordered Notify provider NEEDED Care 04/19/24 10:21 Active Saline [Insert IV] NOW Care 04/19/24 05:56 Active Straight [In and Out Catheter] X1 Care 04/19/24 05:56 Completed Consult to General Surgery Stat Cons 04/19/24 10:[address] abdomen pelvis wo con Stat Exams 04/19/24 05:57 Completed US gall bladder Stat Exams 04/19/24 05:57 Completed Amylase Stat Lab 04/19/24 06:44 Completed BMP [Basic Metabolic Panel] Stat Lab 04/19/24 06:44 Completed CBC Stat Lab 04/19/24 06:44 Completed Lipase Stat Lab 04/19/24 06:44 Completed Liver Panel Stat Lab 04/19/24 06:44 Completed Magnesium Stat Lab 04/19/24 06:44 Completed UA, C/S IF [Urinalysis, C/S if Indicated] Stat Lab 04/19/24 07:55 Completed Urine Culture Stat Lab 04/19/24 07:55 Received Metoprolol Tartrate [Lopressor] Med 04/19/24 08:13 Discontinued 12.5 mg PO X1 ONE Morphine Inj Med 04/19/24 05:56 Discontinued 2 mg IVP X1 ONE Morphine Inj Med 04/19/24 08:13 Discontinued 4 mg IVP X1 ONE Ondansetron Inj [Zofran Inj] Med 04/19/24 05:56 Discontinued 4 mg IV X1 ONE Ondansetron Inj [Zofran Inj] Med 04/19/24 08:13 Discontinued 4 mg IV X1 ONE Piper/Tazo Inj [Zosyn Inj] 3.375 gm Med 04/19/24 08:21 Discontinued SODIUM CHLORIDE 0.9% (Popper) [NS 0.9% (Popper)] 50 ml IV X1 Sodium Chloride 0.9% 1000 ml [Ns] 1,000 ml Med 04/19/24 05:56 Discontinued IV 999 mls/hr cloNIDine HCL [Catapres] Med 04/19/24 07:26 Discontinued 0.3 mg PO X1 ONE pyRIDostigmine bromide [Mestinon] Med 04/19/24 10:16 Discontinued 90 mg PO X1 ONE Code Status Routine Oth 04/19/24 10:21 Ordered Vital Signs Vital signs: Vital Signs Pulse Rate 67 04/19/24 05:41 Respiratory Rate 23 H 04/19/24 05:41 Blood Pressure 199/104 H 04/19/24 05:41 Pulse Oximetry (%) 99 04/19/24 05:41 Abdominal Pain MDM Patient data External records reviewed:: [facility] previous records Clinical information provided by:: patient and EMS Social determinants that could affect healthcare access:: other (specify) (Advanced age) Patient has the following chronic illnesses:: Diabetes and myasthenia gravis How is presenting disease/condition affected by chronic disease/condition?: uneffected by Evaluation data The following diagnostics were reviewed and interpreted by me:: lab results and radiology exam(s) Lab and/or radiology exams considered but not ordered:: None Interpretation Summary: Acute cholecystitis Medications / Prescriptions Medications or Prescriptions considered but not ordered:: None Medication administrations:: Medication Administration History Discontinued Medications Clonidine (Clonidine Hcl 0.1 Mg Tablet) 0.3 mg PO X1 ONE Stop: 04/19/24 07:27 Last Admin: 04/19/24 07:37 Dose: 0.3 mg Documented By: MARLY Sodium Chloride (Ns) 1,000 mls @ 999 mls/hr IV .Q1H1M ONE Stop: 04/19/24 06:56 Last Infusion: 04/19/24 07:29 Dose: Infused Documented By: Admin: 04/19/24 06:11 Dose: 999 mls/hr Documented By: TONO Piperacillin Sod/Tazobactam (Sod 3.375 gm/ Sodium Chloride) 50 mls @ 100 mls/hr IV X1 ONE Stop: 04/19/24 08:50 Last Admin: 04/19/24 09:09 Dose: 100 mls/hr Documented By: MARLY Metoprolol Tartrate (Metoprolol Tartrate 25 Mg Tablet) 12.5 mg PO X1 ONE Stop: 04/19/24 08:14 Last Admin: 04/19/24 08:19 Dose: 12.5 mg Documented By: MARLY Morphine Sulfate (Morphine Sulf Inj 10 Mg/Ml Vial) 2 mg IVP X1 ONE Stop: 04/19/24 05:57 Last Admin: 04/19/24 06:12 Dose: 2 mg Documented By: TONO Morphine Sulfate (Morphine Sulf Inj 10 Mg/Ml Vial) 4 mg IVP X1 ONE Stop: 04/19/24 08:14 Last Admin: 04/19/24 08:20 Dose: 4 mg Documented By: MARLY Ondansetron HCl (Ondansetron Inj 2 Mg/Ml Inj 2 Ml) 4 mg IV X1 ONE; Protocol Stop: 04/19/24 05:57 Last Admin: 04/19/24 06:12 Dose: 4 mg Documented By: TONO Ondansetron HCl (Ondansetron Inj 2 Mg/Ml Inj 2 Ml) 4 mg IV X1 ONE; Protocol Stop: 04/19/24 08:14 Last Admin: 04/19/24 08:21 Dose: 4 mg Documented By: MARLY Pyridostigmine [place] (Pyridostigmine [place] 60 Mg Tablet) 90 mg PO X1 ONE Stop: 04/19/24 10:17 pyridostigmine Consultations Consultation(s) initiated? (list below): Yes Consultation #1 (Physician, Specialty, Details): I discussed the case with Dr. Dominguez, our surgeon on-call.? About the presentation and exam and diagnostics and treatments here.? Recommended admission to hospitalist for surgery and further care. Diagnosis Differential diagnosis abdominal pain: acute appendicitis, calculus of kidney, constipation, diverticulitis, pancreatitis, small bowel obstruction and other (Cholecystitis, colitis) Most likely diagnosis given after review of the tests above:: Acute cholecystitis Admission Indicated Admission indicated?: indicated Explain why admission is indicated or not indicated:: Acute cholecystitis Admission Request Was there a request for admission?: Yes Admission Attestation Admission request attestation: Discussed case with Hospitalist service regarding admission. Discussed patients ED course, exam findings, labs, and radiology results. The Hospitalist [agrees] to accept the patient for admission. Disposition Plan Disposition Plan: Admit Discharge Plan Plan Patient Disposition: Admit Acute Care w/in Hospital Prescriptions/Referrals Prescriptions/Med Rec: No Action trazodone 50 mg tablet 50 mg PO HS PRN (Reason: Insomnia) Patient Comments: take 1 tablet by mouth at bedtime if needed for insomnia pyridostigmine bromide 60 mg tablet 90 mg PO QID Patient Comments: 1 AND 1/2 tablet by mouth four times a day Rx Instructions: 1 and 1/2 tablet 4 times a day hydroxyzine HCl 25 mg tablet 25 mg PO BID PRN (Reason: Allergy Symptoms) Patient Comments: take 1 tablet by mouth twice a day if needed pioglitazone 30 mg tablet 30 mg PO QDAY Patient Comments: take 1 tablet by mouth once daily insulin glargine [Lantus Solostar U-100 Insulin] 100 unit/mL (3 mL) insulin pen 20 unit SUBCUT QDAY Patient Comments: inject 20 units subcutaneously once daily duloxetine 60 mg capsule,delayed release(DR/EC) 60 mg PO QDAY Patient Comments: take 1 capsule by mouth once daily ciprofloxacin HCl 500 mg tablet 500 mg PO BID Qty: 20 0RF Referrals: No Primary/Family,Physician [Primary Care Provider] - In 1 week Problem List Clinical Impression: Acute cholecystitis, Myasthenia gravis, Hypertensive urgency Patient/Caregiver Discharge Instructions Print Language: German Stand Alone Forms: [employer]lysia Award Info., Patient Portal Info Letter
--- NOTE | 2024-04-19 09:00 | PC.NURSE ---
At approximately 0800 patient had a run of SVT lasting approximately 1 minute 15 seconds. Strip placed in chart and MD notified. Medication orders placed and administered. Patient states that sometimes she feels her heart race but did not feel it as it happened this time. Rn was bedside at time of incident. Heart sounds noted to match rate of heart monitor.
[2024-04-19 09:06] LABS: Culture Indicated,Urine Yes
[2024-04-19] MEDS: PIPER/TAZO INJ 3.375 GM in SODIUM CHLORIDE 0.9% (Popper) 50 ML IV (09:09)
[2024-04-19] MEDS: pyRIDostigmine bromide 60 MG TABLET 90 MG PO ×3 (10:53→20:29)
--- NOTE | 2024-04-19 11:43 | PD.SURCONS ---
HPI Consult details Consult date: 04/19/24 Reason for consultation narrative: Abdominal pain with nausea and vomiting History of present illness: 73-year-old female with history of hypertension, diabetes, myasthenia gravis presented to the emergency department with worsening abdominal pain with nausea and vomiting. She was admitted to the hospital few weeks ago and was found to have pyelonephritis that was treated with antibiotics. She has had 6 weeks history of intermittent abdominal pain. Her pain has been getting progressively worse for the past 2 days. She has not been able to eat or tolerate any food and had multiple episodes of nausea and vomiting. Her WBC was elevated 19.1. Liver enzymes are within normal limits. CT scan and abdominal ultrasound revealed multiple gallstones with gallbladder wall thickening and edema. Review of Systems Constitutional Constitutional: Denies chills and Denies fever(s) Cardiovascular Cardiovascular: Denies chest pain Respiratory Respiratory: Denies cough Gastrointestinal Gastrointestinal: Reports abdominal pain, Reports nausea and Reports vomiting Genitourinary Genitourinary: Denies dysuria Musculoskeletal Musculoskeletal: Reports back pain Hematologic/Lymphatic Hematologic/Lymphatic: Denies easy bleeding and Denies easy bruising Past Medical History Surgical History OTHER SURGICAL HX: Hysterectomy, tonsillectomy, tracheostomy and PEG tube placement (both were removed), joint replacement Social History SMOKING STATUS: Never smoker SUBSTANCE USE: does not use ALCOHOL: Never Meds Home Medications and Allergies Home Medications ?Medication ?Instructions ?Recorded ?Confirmed ?Type duloxetine 60 mg capsule,delayed 60 mg PO QDAY 03/16/24 03/16/24 History release hydroxyzine HCl 25 mg tablet 25 mg PO BID PRN Allergy Symptoms 03/16/24 03/16/24 History insulin glargine 100 unit/mL (3 20 unit subcut QDAY 03/16/24 03/16/24 History mL) subcutaneous pen (Lantus Solostar U-100 Insulin) pioglitazone 30 mg tablet 30 mg PO QDAY 03/16/24 03/16/24 History pyridostigmine bromide 60 mg tablet 90 mg PO QID 03/16/24 03/16/24 History trazodone 50 mg tablet 50 mg PO HS PRN Insomnia 03/16/24 03/16/24 History Allergies Allergy/AdvReac Type Severity Reaction Status Date / Time Sulfa (Sulfonamide Allergy Severe Hives Verified 11/02/22 06:03 Antibiotics) Exam Vital Signs Temp Pulse Resp BP Pulse Ox O2 Del Method 98.6 F 82 19 185/81 H 96 Room Air 04/19/24 10:12 04/19/24 10:12 04/19/24 10:12 04/19/24 10:12 04/19/24 10:12 04/19/24 10:12 Constitutional Constitutional: no acute distress Routine Abdominal Exam Abdominal: Present soft, normoactive bowel sounds and tenderness (Right upper quadrant tenderness to palpation with guarding, positive Wahl sign); Absent distended Results Results: Laboratory Laboratory results: results reviewed Results: Imaging CT scan - abdomen: report reviewed and image reviewed CT scan - pelvis: report reviewed and image reviewed US - abdomen: report reviewed and image reviewed Assessment & Plan Problem List (1) Calculus of gallbladder with acute cholecystitis without obstruction: Status: Acute Plan Will plan for laparoscopic possible open cholecystectomy. Risks include but not limited to infection, bleeding, injury to bowel, liver, stomach, bile duct, retained stone, bile leak, abdominal sepsis and or abdominal abscess, need for further procedure and or operation, pneumonia, blood clot, heart attack, stroke and discussed with the patient. Benefits alternatives explained to her, all her questions answered, she agreed and consented to proceed with the operation.
--- NOTE | 2024-04-19 12:43 | PD.SUROPNT ---
Date of Procedure 04/19/24 Pre Op Diagnosis Cholelithiasis with acute cholecystitis Post Op Diagnosis Cholelithiasis with acute cholecystitis Procedure Laparoscopic cholecystectomy Findings Very distended and tense gallbladder with gallstones, gallbladder wall thickening and significant pericholecystic edema. There was mild ascites and mildly cirrhotic appearing liver Procedure Description Patient was brought into the operating room in supine position. After administration of general endotracheal anesthesia abdomen was prepped and draped in standard surgical manner. A Veress needle was inserted through the umbilicus and pneumoperitoneum was obtained up to 15 mmHg. The Veress needle was then removed, a 5 mm infraumbilical incision was made and the 5mm trocar was inserted. Laparoscopic camera was placed. Under direct visualization a laparoscopic camera a 10 mm trocar was placed in subxiphoid and two 5 mm trocars placed in right upper quadrant. Patient had minimal ascites around the liver. There was mild nodularities throughout the surface of the liver suspicious for mildly cirrhotic liver. The gallbladder was identified and was noted to be very distended and tense with multiple gallstones, gallbladder wall thickening and pericholecystic edema. The gallbladder was aspirated and decompressed with an aspirator. It was retracted cephalad and laterally. Dissection started near the infundibulum of gallbladder where cystic duct and gallbladder junction clearly identified. The cystic duct was circumferentially dissected off the peritoneum and surrounding inflammatory tissue. The critical view of safety was clearly demonstrated. Cystic duct was then divided between 2 endoclips proximally and one distally. The cystic artery was similarly dissected and divided. The gallbladder was then from the liver bed using electrocautery. The gallbladder was then placed inside an Endo Catch and removed from the abdomen utilizing subxiphoid trocar site. The area was copiously and thoroughly washed and irrigated, all the fluid was suctioned and the suction fluid returned clear. Hemostasis achieved using electrocautery, also topical hemostatic agent using snow Surgicel placed at the gallbladder fossa to further assure hemostasis. Endoclips noted be in place and intact without any bleeding or any leakage. Hemostasis was adequate and satisfactory. The subxiphoid trocar sites fascial defect was closed with 0 Vicryl. Instruments and trocars removed, pneumoperitoneum was evacuated and the incisions closed with 4-0 Monocryl in subcuticular fashion. Instrument needle and sponge counts were all reported to be correct X2. Patient tolerated the procedure well, was extubated, breathing spontaneously and without difficulty and was transferred to postanesthesia care in stable condition. Anesthesia GETA and local Pathology / specimen Other (Gallbladder and contents) Estimated Blood Loss 50 Condition Stable Disposition PACU Surgeon Wilfredo Dominguez MD Surgical Staff Operation Date: 04/19/24 14:15 Case Staff [employer] OFFICER: Carlos Tipton RNmanual arts therapy teacher: America Mendoza
--- NOTE | 2024-04-19 12:49 | SUR.PHASEI ---
pt received from OR in recovery bay 8. pt asleep but responds to voice, breathing unlabored on 6l oxymask. v/s stable. pt dressing to abd dermabond x4 cdi. report received from Carlos ALICIA and Sesar SANCHEZ.
--- NOTE | 2024-04-19 14:10 | PD.RESHP ---
Documentation for date of: 04/19/24 HPI History of Present Illness History of present illness: HPI is limited as patient is examined in the PACU and is experiencing some pain and still has some anesthesia effect Carmen is a 73 y/o female with PMHx of insulin-dependent type 2 diabetes, myasthenia gravis, depression, hypertension who comes to the ED emergently for an evaluation of right sided abdominal pain with no associated nausea or vomiting, that has been ongoing. Patient has known that she has had a history of gallstones, however has not elected to have a cholecystectomy. Of note patient was recently discharged in late February 2024 for management of pyelonephritis. She says she had no chest pain or shortness of breath, but has had similar abdominal pain in the past. She decided to come to the ED for further evaluation and for cholecystectomy. Patient does use oxygen sometimes at home, but denies history of heart failure or COPD. Patient does confirm having a history of myasthenia gravis and takes medicine for it. ED course: Patient arrived to the ED with a temperature of 99.1, heart rate of 67, respiratory rate of 23, blood pressure of 189/104, saturating 99% room air. She was worked up and was found to have a white count of 19, hemoglobin 11.6, sodium and potassium of 137 4.6 respectively, BUN/creatinine of 18 and 1.4, AST ALT 22 and 7 respectively, magnesium 1.9. Urinalysis showed 11 white blood cells. Patient abdominal CT in which showed abnormal gallbladder, gallstones and distention of gallbladder with gallbladder thickening. Gallbladder ultrasound showed acute calculus cholecystitis. Patient was given 1 L bolus of normal saline, Zofran, morphine, clonidine 0.3, metoprolol 12.5. General surgery was consulted and patient was admitted for cholecystectomy. Past medical history: As above Surgeries: Hysterectomy Allergies: Sulfa drugs Medicines: Duloxetine 60 mg daily, hydroxyzine 25 mg as needed, pioglitazone, pyridostigmine bromide 90 mg QID, trazodone 50 HS PRN Family history: Denies family history of medical problems Social: Lives in [place] with partner who is currently in rehab. Has 2 kids and a grandson. 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 Does not drink or smoke or have history of using illicit drugs. Review of Systems Review of Systems Narrative Review of Systems: Constitutional: No fever, chills, fatigue, weakness, weight loss HEENT: No eye pain, vision loss, ear pain, hearing loss, dysphagia, Cardiovascular: No chest pain, palpitations, edema, pain with walking Respiratory: No cough, shortness of breath, wheezing GI: No NVD, + abdominal pain, no constipation, blood in stool, loss of appetite, heartburn Extremities: No presence of pitting edema MSK: No back pain, joint pain, joint swelling Neuro: No dizziness, numbness, weakness, headaches, seizures, tremors Psych: No anxiety, depression Exam Vital Signs Temp Pulse Resp BP Pulse Ox O2 Del Method O2 Flow Rate 97.7 F 68 19 112/55 L 95 Room Air 3 04/19/24 13:35 04/19/24 13:35 04/19/24 13:35 04/19/24 13:35 04/19/24 13:35 04/19/24 10:12 04/19/24 13:05 Narrative Exam General: AAOx3, NAD, elderly woman, soft spoken, appears to be frail, talks very quitely HEENT: Moist mucous membranes, conjunctiva clear, EOMI, PERRLA, Cardiovascular: S1, S2, radial pulses +2 bilat, RRR Pulmonary: CTAB bilat no cough, no wheezing GI: No tenderness to light or deep palpitation, no guarding, rigidity, rebound tenderness or distension Extremities: No presence of trace or pitting edema in lower extremities bilaterally, dorsalis pedis pulses +2 bilaterally Back: Possible SK seen by R upper scapula Neuro: AAOx3, limited motor exam, no sensory deficits noted in UE and LE bilat Psych: Good judgement, thought and behavior Results: Labs 04/19/24 06:44 04/19/24 06:44 Labs: Short CBC 04/19/24 Range/Units 06:44 WBC 19.1 H (3.6-11.0) Thou/mm3 Hgb 11.6 L (12.0-16.0) g/dL Hct 35.7 L (36.0-46.0) % Plt Count 307 D (140-440) Thou/mm3 BMP 04/19/24 06:44 Sodium 137 Potassium 4.6 Chloride 102 Carbon Dioxide 25.6 BUN 18 Creatinine 1.4 H Glucose 92 Calcium 9.9 Liver Function 04/19/24 Range/Units 06:44 Total Bilirubin 0.3 (0.3-1.2) mg/dL Direct Bilirubin < 0.1 (0.0-0.3) mg/dL AST 22 (0-34) U/L ALT < 7 L (10-49) U/L Alkaline Phosphatase 93 (46-116) U/L Albumin 4.5 (3.4-4.8) gm/dL Urine 04/19/24 Range/Units 07:55 Urine Color Colorless A (Lt Yel-Yel) Urine Clarity Clear (Clear/Hazy) Urine pH 7.0 (5.0-7.0) Ur Specific [place] 1.009 (1.001-1.035) Urine Protein Negative (Neg - Trace) Urine Glucose (UA) Negative (Negative) Quality Measures Quality Measures none Advance care planning discussed with:: patient Medications Home Medications and Allergies Home Medications ?Medication ?Instructions ?Recorded ?Confirmed ?Type duloxetine 60 mg capsule,delayed 60 mg PO QDAY 03/16/24 03/16/24 History release hydroxyzine HCl 25 mg tablet 25 mg PO BID PRN Allergy Symptoms 03/16/24 03/16/24 History insulin glargine 100 unit/mL (3 20 unit subcut QDAY 03/16/24 03/16/24 History mL) subcutaneous pen (Lantus Solostar U-100 Insulin) pioglitazone 30 mg tablet 30 mg PO QDAY 03/16/24 03/16/24 History pyridostigmine bromide 60 mg tablet 90 mg PO QID 03/16/24 03/16/24 History trazodone 50 mg tablet 50 mg PO HS PRN Insomnia 03/16/24 03/16/24 History Allergies Allergy/AdvReac Type Severity Reaction Status Date / Time Sulfa (Sulfonamide Allergy Severe Hives Verified 11/02/22 06:03 Antibiotics) Visit Medications Albuterol/Ipratropium (Albuterol/Ipratropium (Duoneb) Rt Kate 3 Ml Nebu) 3 ml INH Q4HRRT PRN PRN Reason: WHEEZING Stop: 05/19/24 12:29 Fentanyl Citrate (Fentanyl Cit Inj 50 Mcg/Ml Amp 2ml) 25 mcg IV Q5M PRN PRN Reason: PAIN SCALE 1-3 (mild Stop: 04/19/24 14:30 Hydromorphone HCl (Hydromorphone Inj 2 Mg/Ml Vial) 0 mg IV Q5M PRN PRN Reason: PAIN SCALE 7-10 (Severe Stop: 04/19/24 14:30 Discontinued Medications Clonidine (Clonidine Hcl 0.1 Mg Tablet) 0.3 mg PO X1 ONE Stop: 04/19/24 07:27 Last Admin: 04/19/24 07:37 Dose: 0.3 mg Sodium Chloride (Ns) 1,000 mls @ 999 mls/hr IV .Q1H1M ONE Stop: 04/19/24 06:56 Last Infusion: 04/19/24 07:29 Dose: Infused Piperacillin Sod/Tazobactam (Sod 3.375 gm/ Sodium Chloride) 50 mls @ 100 mls/hr IV X1 ONE Stop: 04/19/24 08:50 Last Infusion: 04/19/24 11:39 Dose: Infused Metoprolol Tartrate (Metoprolol Tartrate 25 Mg Tablet) 12.5 mg PO X1 ONE Stop: 04/19/24 08:14 Last Admin: 04/19/24 08:19 Dose: 12.5 mg Morphine Sulfate (Morphine Sulf Inj 10 Mg/Ml Vial) 2 mg IVP X1 ONE Stop: 04/19/24 05:57 Last Admin: 04/19/24 06:12 Dose: 2 mg Morphine Sulfate (Morphine Sulf Inj 10 Mg/Ml Vial) 4 mg IVP X1 ONE Stop: 04/19/24 08:14 Last Admin: 04/19/24 08:20 Dose: 4 mg Ondansetron HCl (Ondansetron Inj 2 Mg/Ml Inj 2 Ml) 4 mg IV X1 ONE; Protocol Stop: 04/19/24 05:57 Last Admin: 04/19/24 06:12 Dose: 4 mg Ondansetron HCl (Ondansetron Inj 2 Mg/Ml Inj 2 Ml) 4 mg IV X1 ONE; Protocol Stop: 04/19/24 08:14 Last Admin: 04/19/24 08:21 Dose: 4 mg Ondansetron HCl (Ondansetron Inj 2 Mg/Ml Inj 2 Ml) 4 mg IV X1 ONE Stop: 04/19/24 12:31 Pyridostigmine [place] (Pyridostigmine [place] 60 Mg Tablet) 90 mg PO X1 ONE Stop: 04/19/24 10:17 Last Admin: 04/19/24 10:53 Dose: 90 mg Assessment & Plan Plan Assessment Carmen is a 73 y/o female with PMHx of insulin-dependent type 2 diabetes, myasthenia gravis, depression, hypertension who comes to the ED emergently for acute calculus cholecystitis requiring cholecystectomy. #Acute calculus cholecystitis s/p cholecystectomy Patient has history of gallstones, however did not get gallbladder taken out He currently has had his gallbladder removed at this time by general surgery, Dr. Dominguez Plan: ? General Surgery consulted, appreciate recs ? Will resume diet after surgery ? Pain control ? Zofran for antiemetics ? Continue with Rocephin ? Bedrest ? Incentive spirometry #CKD, stage IIIb Creatinine 1.4 at this time Plan: ? Avoid nephrotoxic agents ? Renally dose medicines ? Trend with CMP #Hypertensive urgency, resolved #History of hypertension Patient came with a blood pressure of 190s systolic, does not appear to have any endorgan damage at this time Patient was given clonidine metoprolol in the ED Blood pressure likely related to pain Plan: ? Will avoid correcting systolic blood pressure over 25% within first 24 hours ? Will resume home blood pressure medicines when able #History of myasthenia gravis Plan: ? Resumed Pyridostigmine bromide 90 mg by mouth QID #Insulin-dependent Diabetes mellitus type II Plan: ? Sliding scale insulin ? Hypoglycemic protocol in place ? Blood sugar checks with meals #History of depression Chronic Plan: ?Resumed home trazodone 50 mg by mouth at night as needed for insomnia ?Resumed home hydroxyzine 25 mg p.o. twice daily ?Resumed home Cymbalta 60 mg every day #Health Maintenance Disposition: MedSurg DVT prophylaxis: SCDs GI prophylaxis: Protonix Diet: N.p.o., surgery to advance CODE STATUS: Full Patient seen and care discussed with my senior resident, Dr. Kitchen, and my attending physician, Dr. Jass Daily, PGY-1 Patient examined and case discussed with the team including attending physician. Note reviewed, I agree with the care plan as documented. Carmen is a 73 y/o female with PMHx of insulin-dependent type 2 diabetes, myasthenia gravis, depression, hypertension who comes to the ED emergently for acute calculus cholecystitis requiring cholecystectomy. She is s/p laparascopic cholecystectomy by Dr Dominguez. Pain is well controlled. No acute complaints post op. Plan: Will start diet once approved by general surgery and observe. Dispo: Anticipate DC in 24-48 hours. - Iam Kitchen MD, PGY 2 Disclaimer: The document below may not be free of grammatical/phonetic/typographic errors due to use of voice recognition software. This does not dissuade from the commitment to providing health care with the patient's best interest in mind. Attending Provider Attestation/Addendum I have examined the patient, reviewed labs and imaging findings, discussed the case with the resident(s), and reviewed entered orders. I agree with the plan of care as outlined in this note, with these additional summaries/recommendations: Patient seen at bedside postoperatively. Patient was emergently taken to surgery from the ER for cholecystectomy and were unable to obtain history prior to surgery. At bedside patient reports surgery went well and pain is currently controlled. We will continue IV Rocephin, IV fluids, and IV pain management. We will resume home medications as tolerated. As needed antihypertensives for now. Insulin sliding scale for diabetes mellitus type 2. Order A1c. Patient has history of myasthenia gravis and follows neurology in [place]. Resume home pyridostigmine bromide 90 mg p.o. 4 times daily. As needed trazodone as needed at night. Repeat hematology and chemistry panel in AM. Dr. Jass MD
--- NOTE | 2024-04-19 14:20 | SUR.PHASEII ---
pt awake and alert, breathing unlabored on room air. v/s stable. pt dressing to abd x4 dermabond cdi. report called to Althea SANCHEZ. pt will be transferred to room at this time.
[2024-04-19] MEDS: hydrOXYzine HCL 25 MG TABLET PO (15:01)
[2024-04-19] MEDS: CEFOXITIN 2 GM in SODIUM CHLORIDE 0.9% (Popper) 50 ML IV ×2 (15:09→21:33)
[2024-04-19] MEDS: INSULIN LISPRO (AdmeLOG) 1 UNIT/0.01 ML UNIT SC (17:14)
[2024-04-19] MEDS: DOCUSATE SOD 100 MG CAPSULE PO (20:28)
[2024-04-19] MEDS: ACETAMINOPHEN 325 MG TABLET 650 MG PO (22:43)
[2024-04-20] VITALS (9 sets, daily range): BP systolic 105–146; BP diastolic 46–101; PULSE 47–92; RESP 16–20; TEMP 35.6–36.6; O2SAT 95–99
[2024-04-20] MEDS: CEFOXITIN 2 GM in SODIUM CHLORIDE 0.9% (Popper) 50 ML IV (05:08)
[2024-04-20] MEDS: pyRIDostigmine bromide 60 MG TABLET 90 MG PO ×4 (05:11→21:20)
[2024-04-20 05:49] LABS: Basophils # (Auto) 0.1 Thou/mm3 (0.0-0.2); Basophils % (Auto) 0 % (0-2.5); Eosinophils % (Auto) 0 % (0-10); Hematocrit 28.4 % (36.0-46.0); Hemoglobin 9.3 g/dL (12.0-16.0); Immature Granulocytes % (Auto) 1 % (0-0); Immature Granulocytes Auto 0.11 Thou/mm3 (0.00-0.00); Lymphocytes % (Auto) 9 % (10-50); Mean Corpuscular HGB Conc 32.7 g/dl (31.0-37.0); Mean Corpuscular Volume 92 fL (80-100); Monocytes # (Auto) 1.4 Thou/mm3 (0.0-0.8); Monocytes % (Auto) 6 % (0-12); Neutrophils # (Auto) 18.6 Thou/mm3 (1.8-7.7); Neutrophils % (Auto) 84 % (37-80); Nucleated Red Blood Cell % 0 /100 WBC (0); Platelet Count 281 Thou/mm3 (140-440); RDW Standard Deviation 45.8 fL (36.4-46.3)
[2024-04-20 05:54] LABS: White Blood Count 22.2 Thou/mm3 (3.6-11.0)
[2024-04-20 06:27] LABS: INR 1.1 (0.9-1.3); Partial Thromboplastin Time 32.2 Seconds (22.0-36.0); Prothrombin Time 11.9 Seconds (9.0-12.2)
[2024-04-20 06:36] LABS: Alanine Aminotransferase 24 U/L (10-49); Albumin, Serum 3.6 gm/dL (3.4-4.8); Albumin/Globulin Ratio 1.3 (1.2-2.2); Alkaline Phosphatase 91 U/L (46-116); Anion Gap 10 (7-16); Aspartate Amino Transferase 57 U/L (0-34); BUN/Creatinine Ratio 11 Ratio (12-20); Bilirubin,Total 0.5 mg/dL (0.3-1.2); Blood Urea Nitrogen 25 mg/dL (9-23); Calcium 9.5 mg/dL (8.3-10.6); Calcium (Corrected) 9.8 mg/dL (8.5-10.1); Carbon Dioxide 23.4 mMol/L (20.0-31.0); Chloride 102 mMol/L (98-107); Creatinine (Component) 2.2 mg/dL (0.6-1.3); Estimated Creatinine Clearance 19.9 mL/min (>60); Globulin 2.7 gm/dL (2.3-3.5); Glucose 140 mg/dL (74-106); Magnesium 1.9 mg/dL (1.6-2.6); Osmolality,Calculated 276 (275-295); Phosphorous 4.8 mg/dL (2.4-5.1); Potassium 4.8 mMol/L (3.4-5.1); Sodium 135 mMol/L (136-145); Total Protein 6.3 gm/dL (5.7-8.2); eGFR 23 See Note
[2024-04-20] MEDS: ALBUTEROL/IPRATROPIUM (Duoneb) RT SOL 3 ML NEBU INH (08:17)
[2024-04-20] MEDS: PIPER/TAZO INJ 3.375 GM in SODIUM CHLORIDE 0.9% (Popper) 50 ML IV ×2 (09:02→21:17)
[2024-04-20] MEDS: DULoxetine HCL 30 MG CAPSULE 60 MG PO (09:03)
[2024-04-20] MEDS: PANTOPRAZOLE 40 MG TABLET PO (09:03)
[2024-04-20] MEDS: DOCUSATE SOD 100 MG CAPSULE PO ×2 (09:03→21:19)
[2024-04-20] MEDS: SODIUM CHLORIDE 0.9% 1000 ML 1,000 ML 75 ML IV ×2 (09:08→23:55)
--- NOTE | 2024-04-20 10:11 | PC.SS ---
Initial assessment: this is 73 year old female admitted for cholecystectomy. Patient confirmed demographic information. Patient reports living alone. Patient reports being independent with ADL'S. Patient reports having a walker at home and used if needed. Patient reports having home O2 however informs it is not utilized. Patient reports her PCP is BINA Stover in [place]. Does not recall providers name. Patient informs her preferred pharmacy is [facility] in [place]. Patient assigned her son, Mert Garcia her as her emergency contact. Patient would like to return home upon discharge. Patient has access to transportation. D/c plan: Home Next of kin: sonMert
[2024-04-20] MEDS: SODIUM CHLORIDE 0.9% 500 ML 500 ML 999 ML IV (11:12)
[2024-04-20] MEDS: INSULIN LISPRO (AdmeLOG) 1 UNIT/0.01 ML UNIT SC (11:13)
--- NOTE | 2024-04-20 11:13 | ESPR_ITS ---
Documentation for date of: 04/20/24 Subjective Subjective Interval history: Patient examined at bedside today. o acute overnight events. Patient says she slept well, has not had a bowel movement. Says her abdominal pain has improved. Wondering when she is going to go home. Denies any chest pain, shortness of breath nausea, vomiting. No other complaints at this time Exam Vital Signs Temp Pulse Resp BP Pulse Ox O2 Del Method O2 Flow Rate 96.0 F L 65 18 105/48 L 99 Nasal Cannula 1.5 04/20/24 08:00 04/20/24 08:20 04/20/24 08:20 04/20/24 08:00 04/20/24 08:20 04/20/24 08:00 04/20/24 08:00 Narrative Exam General: AAOx3, NAD, elderly woman, soft spoken, appears to be frail, talks very quitely HEENT: Moist mucous membranes, conjunctiva clear, EOMI, PERRLA, Cardiovascular: S1, S2, radial pulses +2 bilat, RRR Pulmonary: CTAB bilat no cough, no wheezing GI: No tenderness to light or deep palpitation, no guarding, rigidity, rebound tenderness or distension Extremities: No presence of trace or pitting edema in lower extremities bilaterally, dorsalis pedis pulses +2 bilaterally Back: Possible SK seen by R upper scapula Neuro: AAOx3, limited motor exam, no sensory deficits noted in UE and LE bilat Psych: Good judgement, thought and behavior Objective Labs 04/20/24 05:15 04/20/24 05:15 Labs: Laboratory Results - last 24 hr 04/20/24 05:15 WBC 22.2 H RBC 3.10 L Hgb 9.3 L D Hct 28.4 L MCV 92 MCH 30.0 MCHC 32.7 RDW Std Deviation 45.8 Plt Count 281 Neut % (Auto) 84 H Lymph % (Auto) 9 L Curry % (Auto) 6 Eos % (Auto) 0 Baso % (Auto) 0 Neut # (Auto) 18.6 H Lymph # (Auto) 2.0 Curry # (Auto) 1.4 H Eos # (Auto) 0.0 Baso # (Auto) 0.1 Immature Gran # (Auto) 0.11 H Absolute Nucleated RBC 0.00 Immature Gran % 1 H Nucleated RBC % 0 PT 11.9 INR 1.1 APTT 32.2 Sodium 135 L Potassium 4.8 Chloride 102 Carbon Dioxide 23.4 Anion Gap 10 BUN 25 H Creatinine 2.2 H D Estim Creat Clear Calc 19.9 L eGFR 23 L BUN/Creatinine Ratio 11 L Glucose 140 H D Calculated Osmolality 276 Calcium 9.5 Corrected Calcium 9.8 Phosphorus 4.8 Magnesium 1.9 Total Bilirubin 0.5 AST 57 H ALT 24 Alkaline Phosphatase 91 Total Protein 6.3 Albumin 3.6 D Globulin 2.7 Albumin/Globulin Ratio 1.3 Quality Measures Quality Measures none Advance care planning discussed with:: patient Assessment & Plan Assessment Current Active Medications: Generic Name Dose Route Start Last Admin Trade Name Freq PRN Reason Stop Dose Admin Acetaminophen 650 mg 04/19/24 14:30 04/19/24 22:43 Acetaminophen 325 Mg Tablet PO 05/19/24 14:29 650 mg Q6H PRN Administration Fever >100 or pain 1-3 Hydrocodone Bitart/Acetaminophen 1 tab 04/19/24 14:52 Hydrocodone/Apap 5/325 Tablet PO 04/24/24 14:51 Q6HR PRN PAIN Protocol Albuterol/Ipratropium 3 ml 04/19/24 14:41 04/20/24 08:17 Albuterol/Ipratropium (Duoneb) Rt Kate 3 Ml Nebu INH 05/19/24 14:59 3 ml Q8HRRT PRN Administration WHEEZING Dextrose 25 ml 04/19/24 14:30 Dextrose 50%-Water Inj 50 Ml Syringe IV 05/19/24 14:29 Q15MIN PRN BG 50-70 responsive npo pt Dextrose 50 ml 04/19/24 14:30 Dextrose 50%-Water Inj 50 Ml Syringe IV 05/19/24 14:29 Q15MIN PRN BG <50 OR BG <70 & pt unresponsive Docusate Sodium 100 mg 04/19/24 21:00 04/20/24 09:03 Docusate Sod 100 Mg Capsule PO 05/19/24 20:59 100 mg BID MARIA DE JESUS Administration Protocol Duloxetine HCl 60 mg 04/20/24 09:00 04/20/24 09:03 Duloxetine Hcl 30 Mg Capsule PO 05/20/24 08:59 60 mg QDAY MARIA DE JESUS Administration Glucagon 1 mg 04/19/24 14:30 Glucagon Inj 1 Mg Vial IM Q15MIN PRN BG <70, and no IV access Hydromorphone HCl 1 mg 04/19/24 14:52 Hydromorphone Inj 2 Mg/Ml Vial IVP 04/24/24 14:51 Q3HR PRN PAIN Protocol Hydroxyzine HCl 25 mg 04/19/24 14:30 04/19/24 15:01 Hydroxyzine Hcl 25 Mg Tablet PO 05/19/24 20:59 25 mg BID PRN Administration ITCHING Piperacillin Sod/Tazobactam 50 mls @ 12.5 mls/hr 04/20/24 21:00 Sod 3.375 gm/ Sodium Chloride IV 04/27/24 20:59 Q12HR MARIA DE JESUS Sodium Chloride 1,000 mls @ 75 mls/hr 04/20/24 09:15 04/20/24 09:08 Ns IV 05/20/24 09:14 75 mls/hr .[id number] MARIA DE JESUS Administration Insulin Human Lispro 0 unit 04/19/24 17:00 04/20/24 07:20 Insulin Lispro (Admelog) 1 Unit/0.01 Ml Unit SC 05/19/24 16:59 Not Given AC MARIA DE JESUS Protocol Ondansetron HCl 4 mg 04/19/24 14:52 Ondansetron Inj 2 Mg/Ml Inj 2 Ml IV 05/19/24 14:51 Q6HR PRN NAUSEA OR VOMITING Protocol Pantoprazole Sodium 40 mg 04/20/24 09:00 04/20/24 09:03 Pantoprazole 40 Mg Tablet PO 05/20/24 08:59 40 mg QDAY MARIA DE JESUS Administration Pyridostigmine [place] 90 mg 04/19/24 17:00 04/20/24 05:11 Pyridostigmine [place] 60 Mg Tablet PO 05/19/24 16:59 90 mg QID MARIA DE JESUS Administration Sennosides 1 tab 04/19/24 14:30 Senna Tablet PO 05/19/24 14:29 QDAY PRN constipation Protocol Trazodone HCl 50 mg 04/19/24 21:00 Trazodone Hcl 50 Mg Tablet PO 05/19/24 20:59 HS PRN insomnia Plan Assessment Carmen is a 73 y/o female with PMHx of insulin-dependent type 2 diabetes, myasthenia gravis, depression, hypertension who comes to the ED emergently for acute calculus cholecystitis requiring cholecystectomy. #Acute calculus cholecystitis s/p cholecystectomy postoperative day 1 #Leukocytosis Patient has history of gallstones, however did not get gallbladder taken out He currently has had his gallbladder removed at this time by general surgery, Dr. Dominguez Leukocytosis likely reactive, has not gotten any steroids, has not had any fevers, however will adjust antibiotics Plan: ? General Surgery consulted, appreciate recs ? Full liquid diet ? Pain control ? Zofran for antiemetics ? Continue with Rocephin ? Bedrest ? Incentive spirometry ? Continue with Zosyn 3.375 IV #HANNA on CKD #CKD, stage IIIb Creatinine 2.2 at this time, BUN 25 Likely prerenal Plan: ? Avoid nephrotoxic agents ? Renally dose medicines ? Trend with CMP ? NS 75 cc/hr, will stop tomorrow ? NS 500 mL bolus x 1 ? Urine lytes and creatinine #Hypertensive urgency, resolved #History of hypertension Patient came with a blood pressure of 190s systolic, does not appear to have any endorgan damage at this time Patient was given clonidine metoprolol in the ED Blood pressure likely related to pain Blood pressure has been soft, will hold on resuming medicines at this time Plan: ? Will avoid correcting systolic blood pressure over 25% within first 24 hours ? Will resume home blood pressure medicines when able #History of myasthenia gravis Plan: ? Continue pyridostigmine bromide 90 mg by mouth QID #Insulin-dependent Diabetes mellitus type II Plan: ? Sliding scale insulin ? Hypoglycemic protocol in place ? Blood sugar checks with meals ? Diabetic diet #History of depression Chronic Plan: ?Continue home trazodone 50 mg by mouth at night as needed for insomnia ?Continue home hydroxyzine 25 mg p.o. twice daily ?Continue home Cymbalta 60 mg every day #Health Maintenance Disposition: MedSurg DVT prophylaxis: SCDs GI prophylaxis: Protonix Diet: Full liquid CODE STATUS: Full Patient seen and care discussed with my senior resident, Dr. Kitchen, and my attending physician, Dr. Jarrett Daily, PGY-1 LPatient examined and case discussed with the team including attending physician. Note reviewed, I agree with the care plan as documented. Carmen is a 73 y/o female with PMHx of insulin-dependent type 2 diabetes, myasthenia gravis, depression, hypertension who comes to the ED emergently for acute calculus cholecystitis requiring cholecystectomy. She is s/p laparascopic cholecystectomy by Dr Dominguez on 04/19/2024. 04/20: WBC 19.1 --> 22.2 , afebrile. Started on Cefoxitin BID by general surgery post operatively. Pain is well controlled. No acute complaints. Passing flatus, no BM yet. Plan: - Antibiotics switched from Cefoxitin -> IV Zosyn 3.3 q8H (04/20 - - Started Low fat diet Dispo: Anticipate DC in 24-48 hours. - Iam Kitchen MD, PGY 2 Disclaimer: The document below may not be free of grammatical/phonetic/typographic errors due to use of voice recognition software. This does not dissuade from the commitment to providing health care with the patient's best interest in mind. L Attending Provider Attestation/Addendum I have discussed and was present for the essential components of the history, physical examination, diagnosis, and treatment plan with the resident. I agree with the patient's care as documented by the resident and amended herein by me. Hunter Farias DO. Although this document has been carefully reviewed, there may still be some phonetic and other typographical errors. These errors are purely grammatical due to imperfections in the software program and should not be construed in any way to compromise the substance of the patient's medical care during this visit.
--- NOTE | 2024-04-20 11:42 | ESPR_ITS ---
Documentation for date of: 04/20/24 Subjective Subjective Narrative: Patient is seen and examined. Her pain is improving. She is tolerating liquid diet without nausea or vomiting Exam Vital Signs Temp Pulse Resp BP Pulse Ox O2 Del Method O2 Flow Rate 96.0 F L 65 18 105/48 L 99 Nasal Cannula 1.5 04/20/24 08:00 04/20/24 08:20 04/20/24 08:20 04/20/24 08:00 04/20/24 08:20 04/20/24 08:00 04/20/24 08:00 Constitutional Constitutional: no acute distress Routine Abdominal Exam Abdominal: Present soft, normoactive bowel sounds and tenderness (Jackelin- incisional tenderness. Incisions are clean, dry and intact); Absent distended Assessment & Plan Assessment Additional comments: Postop day #1 status post laparoscopic cholecystectomy Plan Continue IV antibiotics. Advance to low-fat diet Procedures Procedures Laparoscopic cholecystectomy
[2024-04-20] MEDS: HYDROcodone/APAP 5/325 TABLET 1 TAB PO (13:07)
--- NOTE | 2024-04-20 14:11 | PC.SS ---
Rounding note: keeping to monitor white count, possible d/c tomorrow.
[2024-04-21] VITALS: BP 114/49; PULSE 66; RESP 18; TEMP 36.6; O2SAT 95
[2024-04-21 04:00] VITALS: BP 104/55; PULSE 72; RESP 18; TEMP 36.4; O2SAT 95
[2024-04-21] MEDS: PIPER/TAZO INJ 3.375 GM in SODIUM CHLORIDE 0.9% (Popper) 50 ML IV (05:23)
[2024-04-21] MEDS: pyRIDostigmine bromide 60 MG TABLET 90 MG PO (05:26)
[2024-04-21 05:37] LABS: Basophils % (Auto) 0 % (0-2.5); Eosinophils % (Auto) 0 % (0-10); Hematocrit 25.6 % (36.0-46.0); Immature Granulocytes % (Auto) 0 % (0-0); Immature Granulocytes Auto 0.03 Thou/mm3 (0.00-0.00); Lymphocytes # (Auto) 1.2 Thou/mm3 (1.0-4.8); Lymphocytes % (Auto) 16 % (10-50); Mean Corpuscular HGB Conc 32.4 g/dl (31.0-37.0); Mean Corpuscular Volume 92 fL (80-100); Monocytes # (Auto) 0.7 Thou/mm3 (0.0-0.8); Monocytes % (Auto) 9 % (0-12); Neutrophils # (Auto) 5.8 Thou/mm3 (1.8-7.7); Neutrophils % (Auto) 75 % (37-80); Nucleated Red Blood Cell % 0 /100 WBC (0); Platelet Count 167 Thou/mm3 (140-440); RDW Standard Deviation 46.5 fL (36.4-46.3); Red Blood Count 2.77 Miln/mm3 (4.00-5.20); White Blood Count 7.8 Thou/mm3 (3.6-11.0)
[2024-04-21 05:39] LABS: Hemoglobin 8.3 g/dL (12.0-16.0)
[2024-04-21 06:08] LABS: Alanine Aminotransferase 18 U/L (10-49); Albumin, Serum 3.4 gm/dL (3.4-4.8); Albumin/Globulin Ratio 1.5 (1.2-2.2); Alkaline Phosphatase 76 U/L (46-116); Anion Gap 6 (7-16); Aspartate Amino Transferase 35 U/L (0-34); BUN/Creatinine Ratio 16 Ratio (12-20); Bilirubin,Total 0.2 mg/dL (0.3-1.2); Blood Urea Nitrogen 28 mg/dL (9-23); Calcium 8.5 mg/dL (8.3-10.6); Chloride 107 mMol/L (98-107); Creatinine (Component) 1.8 mg/dL (0.6-1.3); Estimated Creatinine Clearance 24.3 mL/min (>60); Globulin 2.3 gm/dL (2.3-3.5); Glucose 97 mg/dL (74-106); Osmolality,Calculated 279 (275-295); Potassium 5.2 mMol/L (3.4-5.1); Sodium 137 mMol/L (136-145); Total Protein 5.7 gm/dL (5.7-8.2); eGFR 29 See Note
[2024-04-21 07:54] VITALS: BP 125/57; PULSE 63; RESP 17; TEMP 36.2; O2SAT 93
[2024-04-21] MEDS: DOCUSATE SOD 100 MG CAPSULE PO (08:22)
[2024-04-21] MEDS: PANTOPRAZOLE 40 MG TABLET PO (08:22)
[2024-04-21] MEDS: DULoxetine HCL 30 MG CAPSULE 60 MG PO (08:22)
[2024-04-21] MEDS: Milk Of Magnesia Susp 30 ML UDC PO (08:27)
--- NOTE | 2024-04-21 10:29 | PD.SURPROG ---
Documentation for date of: 04/21/24 Subjective Subjective Narrative: Patient is seen and examined. She is resting comfortably. Pain is improving. She is tolerating diet Exam Vital Signs Temp Pulse Resp BP Pulse Ox O2 Del Method O2 Flow Rate 97.1 F 63 17 125/57 L 93 L Nasal Cannula 1.5 04/21/24 07:54 04/21/24 07:54 04/21/24 07:54 04/21/24 07:54 04/21/24 07:54 04/21/24 07:54 04/21/24 07:54 Constitutional Constitutional: no acute distress Routine Abdominal Exam Abdominal: Present soft, normoactive bowel sounds and tenderness (Epigastric incisional tenderness. Incisions are clean, dry and intact); Absent distended Assessment & Plan Assessment Additional comments: Postop day #2 status post laparoscopic cholecystectomy. WBC is normal Plan May discharge home today. Follow-up with Dr Dominguez in 2 weeks Procedures Procedures Laparoscopic cholecystectomy
--- NOTE | 2024-04-21 10:54 | PC.SS ---
SS update: patient to d/c home today. Patient requesting transportation home. UBER ride requested. ETA 8mins. [email or web address] vehicle. Bed side nurse notified.
[2024-04-21 11:00] VITALS: BP 154/88; PULSE 98; TEMP 36; O2SAT 97
--- NOTE | 2024-04-21 11:00 | PC.PT ---
Patient was approached at 1000 to initiate PT evaluation but patient is refusing. Patient states she can go to the restroom without problem. This PT educated the patient if we can still try to ambulate to assess patient's safety during ambulation. Patient still refused. She said she is ok , Checked with STAFF INTERPRETER, as per STAFF INTERPRETER she can transfer to . Will cancel PT evaluation secondary to patient refused.
--- NOTE | 2024-04-21 14:47 | ESDS_ITS ---
<Statement entered by Iam Kitchen MD - 04/21/24 15:04> Patient was examined with the team including attending physician. Note reviewed, I agree with the discharge plan as documented. - Iam Kitchen M.D. PGY2 Disclaimer: The document below may not be free of grammatical/phonetic/typographic errors due to use of voice recognition software. This does not dissuade from the commitment to providing health care with the patient's best interest in mind. Planned Discharge Date 04/21/24 DS: Providers Provider Date of admission: 04/19/24 10:21 Primary care physician: Physician No Primary/Family Admitting Provider: Jimy Regan MD Attending Provider on Admission: Elias Farias DO Consults: 04/19/24 10:17 Consult to General Surgery Stat Comment: Acute cholecystitis Consulting Provider: Wilfredo Dominguez Attending Provider on DC: Elias Farias DO Discharging Provider: Elias Farias DO DS: Diagnosis Problem List Completed Was Problem List Reviewed/Reconciled?: Yes Hospital Course Hospital Course Hospital course: Carmen is a 73 y/o female with PMHx of insulin-dependent type 2 diabetes, myasthenia gravis, depression, hypertension who was admitted on 04/19/2024 to [facility] for acute calculus cholecystitis requiring cholecystectomy. Patient had known history of cholelithiasis prior to arrival. Patient arrived to the ED with a temperature of 99.1, heart rate of 67, respiratory rate of 23, blood pressure of 189/104, saturating 99% room air. She was worked up and was found to have a white count of 19, hemoglobin 11.6, sodium and potassium of 137 4.6 respectively, BUN/creatinine of 18 and 1.4, AST ALT 22 and 7 respectively, magnesium 1.9. Urinalysis showed 11 white blood cells. Patient abdominal CT in which showed abnormal gallbladder, gallstones and distention of gallbladder with gallbladder thickening. Gallbladder ultrasound showed acute calculus cholecystitis. Patient was given 1 L bolus of normal saline, Zofran, morphine, clonidine 0.3, metoprolol 12.5. General surgery, Dr. Dominguez, was consulted and patient was admitted for cholecystectomy. Pt had cholecystectomy performed by Dr. Dominguez. After procedure, diet was advanced and pain management was done. Patient had leukocytosis, in 21 range, antibiotic coverage was broadened which brought down leukocytosis. In addition patient also developed HANNA and CKD likely prerenal cause, was given fluids in addition to encouraging oral hydration and creatinine improved. Patient was then discharged with appropriate follow-ups and discharge instructions. #Acute calculus cholecystitis s/p cholecystectomy postoperative day 1 #Leukocytosis, improving #HANNA on CKD #CKD, stage IIIb #Hypertensive urgency, resolved #History of hypertension #History of myasthenia gravis #Insulin-dependent Diabetes mellitus type II #History of depression Discharge instructions: - Follow up with PCP after discharge - Follow up with Dr. Dominguez in 2 weeks, call [phone] for an appointment. - Continue Augmentin twice a day for 5 days to compete antibiotic course - May have low-fat diet for a week then advance diet as tolerated. - May take Tylenol 2 tabs x 500mg for pain or fever - Take Loratidine as needed for allergies. Stop Hydroxyzine - We have switched your insulin from Glargine to Degludec for optimization - Return to ED if symptoms worsen Patient seen and care discussed with my senior resident, Dr. Kitchen, and my attending physician, Dr. Jarrett Daily, PGY-1 Time Spent with Patient Time attestation: Total time spent providing and/or coordinating discharge services: Time spent: Greater than 30 minutes Exam Vital Signs Temp Pulse Resp BP Pulse Ox O2 Del Method O2 Flow Rate 96.8 F 98 17 154/88 H 97 Room Air 1.5 04/21/24 11:00 04/21/24 11:04/21/24 07:54 04/21/24 11:04/21/24 11:04/21/24 11:04/21/24 07:54 Narrative Exam General: AAOx3, NAD, elderly woman, soft spoken, appears to be frail, talks very quitely HEENT: Moist mucous membranes, conjunctiva clear, EOMI, PERRLA, Cardiovascular: S1, S2, radial pulses +2 bilat, RRR Pulmonary: CTAB bilat no cough, no wheezing GI: No tenderness to light or deep palpitation, no guarding, rigidity, rebound tenderness or distension Extremities: No presence of trace or pitting edema in lower extremities bilaterally, dorsalis pedis pulses +2 bilaterally Back: Possible SK seen by Darrell corona Neuro: AAOx3, limited motor exam, no sensory deficits noted in UE and LE bilat Psych: Good judgement, thought and behavior Discharge Plan Plan Patient Disposition: HOME (Self Care) Patient condition on transfer: Stable Care Plan Goals: - Follow up with PCP after discharge - Follow up with Dr. Dominguez in 2 weeks, call [phone] for an appointment. - Continue Augmentin twice a day for 5 days to compete antibiotic course - May have low-fat diet for a week then advance diet as tolerated. - May take Tylenol 2 tabs x 500mg for pain or fever - Take Loratidine as needed for allergies. Stop Hydroxyzine - We have switched your insulin from Glargine to Degludec for optimization - Return to ED if symptoms worsen Prescriptions/Referrals Prescriptions/Med Rec: New loratadine 10 mg tablet 10 mg PO BID PRN (Reason: Allergies) Qty: 60 0RF insulin degludec 200 unit/mL (3 mL) insulin pen 20 unit subcut QPM Qty: 9 0RF amoxicillin-pot clavulanate 500-125 mg tablet 1 tab PO BID 5 Days Qty: 10 0RF Continued trazodone 50 mg tablet 50 mg PO HS PRN (Reason: Insomnia) Patient Comments: take 1 tablet by mouth at bedtime if needed for insomnia pyridostigmine bromide 60 mg tablet 90 mg PO QID Patient Comments: 1 AND 1/2 tablet by mouth four times a day Rx Instructions: 1 and 1/2 tablet 4 times a day pioglitazone 30 mg tablet 30 mg PO QDAY Patient Comments: take 1 tablet by mouth once daily duloxetine 60 mg capsule,delayed release(DR/EC) 60 mg PO QDAY Patient Comments: take 1 capsule by mouth once daily Discontinued hydroxyzine HCl 25 mg tablet 25 mg PO BID PRN (Reason: Allergy Symptoms) Patient Comments: take 1 tablet by mouth twice a day if needed insulin glargine [Lantus Solostar U-100 Insulin] 100 unit/mL (3 mL) insulin pen 20 unit SUBCUT QDAY Patient Comments: inject 20 units subcutaneously once daily ciprofloxacin HCl 500 mg tablet 500 mg PO BID Qty: 20 0RF Referrals: No Primary/Family,Physician [Primary Care Provider] - Patient/Caregiver Discharge Instructions Discharge Activity: resume usual activities Education Materials: Cholecystectomy, Preventing Surgical Site Infections Print Language: Bangladeshi Activity Restrictions/Additional Instructions: May shower. Avoid lifting, straining, pulling or pushing for 4 weeks. May take over the counter laxatives if no bowel movement in 2 days. Follow up with Dr. Dominguez in 2 weeks, call [phone] for an appointment. May have low-fat diet for a week then advance diet as tolerated. Stand Alone Forms: [employer]lysia Award Info., Patient Portal Info Letter Discharge Order Discharge Orders: Discharge (Routine); Ordered 04/21/24 Ordered By: Iam Kitchen Quality Discharge Quality Measures VTE prophylaxis (SCDs) MD Attestestation MD Attestation I have discussed and was present for the essential components of the discharge history, physical examination, diagnosis, and discharge treatment plan with the resident. I agree with the patient's discharge care as documented by the resident and amended herein by me. Hunter Farias, DO. The patient understood all discharge instructions, all questions were answered satisfactorily. The patient was instructed to return to the Emergency Department is symptoms worsened or persisted. Patient was stable, afebrile, tolerating p.o. intake and ambulatory at time of discharge. Although this document has been carefully reviewed, there may still be some phonetic and other typographical errors. These errors are purely grammatical due to imperfections in the software program and should not be construed in any way to compromise the substance of the patient's medical care during this visit.
== END 2024-04-21 11:05 | disposition home or self-care (01) | DRG 418 ==
LOC: SERX 10:24 → SERHOLD 10:31 → S3NX 14:25
PROVIDERS: Surgery; Admitting Provider Student in an Organized Health Care Education/Training Program; Emergency Provider Emergency Medicine; Visit Provider Student in an Organized Health Care Education/Training Program
PROC: 0FT44ZZ Resection of Gallbladder, Percutaneous Endoscopic Approach (ICD-10-PCS; CPT 47562; principal; 2024-04-19 14:00)
DX: K80.00 Calculus of gallbladder with acute cholecystitis without obstruction (principal); N17.9 Acute kidney failure, unspecified; R18.8 Other ascites; I16.0 Hypertensive urgency; I12.9 Hypertensive chronic kidney disease with stage 1 through stage 4 chronic kidney disease, or unspecified chronic kidney disease; E11.22 Type 2 diabetes mellitus with diabetic chronic kidney disease; G70.00 Myasthenia gravis without (acute) exacerbation; F32.A Depression, unspecified; N18.32 Chronic kidney disease, stage 3b; Z79.4 Long term (current) use of insulin; Z90.710 Acquired absence of both cervix and uterus; Z79.84 Long term (current) use of oral hypoglycemic drugs; Z88.2 Allergy status to sulfonamides
CPT/HCPCS: 36415; 74176; 76705; 80048; 80053; 80076; 81001; 82150; 83690; 83735; 84100; 85025; 85610; 85730; 87077; 87081; 87086; 87186; 94640; 94664; A4217; A4649; A9270; J0694; J1100; J1815; J2270; J2405; J2543; J2704; J3010; J3490; J7030; J7040; J7050

== ENCOUNTER 2024-05-31 22:28 | Inpatient (IN) | payer MEDICARE, SELFPAY ==
[2024-05-31 22:30] VITALS: BP 201/75; PULSE 65; RESP 18; TEMP 37; O2SAT 98
--- NOTE | 2024-05-31 22:30 | PC.NURSE ---
PT BROUGHT TO ER FROM HOME BY AMBULANCE, PT TRIPPED AND FELL, C/O RIGHT SHOULDER PAIN, EMS REPORTED THAT IV INSERTED AND FENTANYL 100MCG AND 1 GRAM OF TYLENOL GIVEN TO PT.
[2024-05-31 22:32] VITALS: BMI 23.9
--- NOTE | 2024-05-31 23:21 | PD.EDFALL ---
ED Fall Injury RME/HPI General Chief Complaint: Fall Stated Complaint: FALL Time Seen by Provider: 05/31/24 23:22 Source: patient Arrival date/time: 05/31/24 22:28 Mode of arrival: EMS RME / HPI RME / HPI Narrative: This section includes all my notes and documentations, including HPI, PE, and ED course.? Carlito Chand MD HPI: 73-year-old female with a significant medical history of insulin-dependent type 2 diabetes mellitus, myasthenia gravis, chronic kidney disease stage IIIb, hypertension, and depression presents to the emergency department via EMS following a possible mechanical fall at home. The patient reports possibly tripping over her feet while walking near the front entryway, resulting in a fall onto her right side. She lives alone and called out to a neighbor, who subsequently contacted EMS. She is not completely and exactly sure why and how she fell. Did not pass out after the fall. She currently endorses right shoulder and left knee pain. She mentions she did strike her head when she fell however she denies any loss of consciousness or headache. No chest pain. She denied left shoulder pain, neck pain, rib cage pain, or any finger pain. She is ambulatory at baseline and reports a sulfa allergy. Per EMS, the patient was alert and oriented with a GCS of 15. IV access was established, and she received 100 mcg fentanyl and 1 g acetaminophen en route for pain control. No other complaints reported. ROS: All negative except as documented in HPI. Physical Exam: General:? Alert and oriented.? In obvious pain. High BP noted. Eyes:? Conjunctivae and lids clear. ENT:? No signs of head trauma. Neck:? Supple. No tenderness. Heart:? RRR. Lungs:? No respiratory distress.? Good air movement.? No rhonchi, wheezing, rales.? Chest: No tenderness. Abdomen:? Soft and nontender.? Legs:? No clubbing, cyanosis, edema. Skin:? Warm and dry.? Neuro:? Alert and oriented X 3.? Cranial nerves II to XII grossly normal. No peripheral motor deficits. Musculoskeletal: Remarkable for right shoulder pain and left knee pain. All other major joints and bones are not tender with no limited ROM. I reviewed all diagnostic test results. My interpretation of the EKG is sinus rhythm with no acute ST?T changes. My interpretation of the right shoulder x-rays is comminuted fracture of the humeral neck. My interpretation of the left knee x-rays is no acute fracture. My review of the head CT report is no acute findings. My review of the cervical spine CT report is no acute findings. My review of the chest/abdomen/pelvis CT report is signs of pyelonephritis. Blood tests and urine tests remarkable for severe UTI. At this point, diagnoses include Pyelonephritis, Fall, Syncope, Fracture of right shoulder, hypertensive urgency. Treatment here included: Ceftriaxone Sodium, IV fluid, Lidocaine 5% patches, Morphine Sulfate, clonidine, and arm sling. Patient remained stable. I discussed the case with our hospitalist. About the presentation and exam and diagnostics and treatments here. And need of further care in the hospital. Will accept the patient. Carlito Chand MD Related Data Home Medications ?Medication ?Instructions ?Recorded ?Confirmed duloxetine 60 mg capsule,delayed 60 mg PO QDAY 03/16/24 04/19/24 release pioglitazone 30 mg tablet 30 mg PO QDAY 03/16/24 04/19/24 pyridostigmine bromide 60 mg tablet 90 mg PO QID 03/16/24 03/16/24 trazodone 50 mg tablet 50 mg PO HS PRN Insomnia 03/16/24 03/16/24 Previous Rx's ?Medication ?Instructions ?Recorded insulin degludec 200 unit/mL (3 20 unit (0.1 mL) subcut QPM #9 mL 04/21/24 mL) subcutaneous pen loratadine 10 mg tablet 10 mg PO BID PRN Allergies #60 tabs 04/21/24 Allergies Allergy/AdvReac Type Severity Reaction Status Date / Time Sulfa (Sulfonamide Allergy Severe Hives Verified 06/01/24 03:58 Antibiotics) Review of Systems Review of Systems Systems Reviewed: All systems reviewed, normal except as documented Past Medical History Past Medical History NEUROLOGIC: Positive Neurological Disorders and Head Trauma CARDIAC: Positive Cardiac Disorders, Myocardial Infarction, Hypercholesterolemia and Hypertension RESPIRATORY: Positive Pneumonia REPRODUCTIVE: Positive Endometriosis and Previous Pregnancies MUSCULOSKELETAL: Positive Musculoskeletal Disorders, Myasthenia Gravis, Arthritis, Scoliosis and Fractures ENT: Positive Cataracts and Head Trauma ENDOCRINE: Positive Endocrine Disorders and Diabetes Mellitus Type 2 PSYCHO/SOCIAL: Positive Psychiatric Problems, Bipolar Disorder, Depression and Anxiety OTHER HISTORY: Positive Hospitalization, Falls, Chicken Pox, Measles and Rubella (Turkmen Measles) Family History FAMILY HISTORY: Positive Family Cardiac Disorders and Family Surgery Surgical History SURGICAL: Positive Tonsillectomy, Adenoidectomy, Abdominal Surgery, Joint Replacement and Hysterectomy Social History SMOKING STATUS: Never smoker SECOND HAND EXPOSURE: No SUBSTANCE USE: does not use Course Quality Measures none Orders Category Date Time Status COVID-19 Screening Questionnaire NOW Care 06/01/24 03:00 Active Decision to Admit X1 Care 06/01/24 03:00 Completed EKG (ED ONLY) *Do not use* NOW Care 06/01/24 00:09 Completed In and Out Catheter X1 Care 06/01/24 00:33 Completed sling [Splint / Immobilizer] STAT Care 05/31/24 23:51 Active Consult to Orthopedic Stat Cons 06/01/24 02:[address] cervical spine wo con Stat Exams 05/31/24 23:[address] chest abdomen pelvis wo Stat Exams 05/31/24 23:[address] head/brain wo con Stat Exams 05/31/24 23:25 Taken EKG (ED Only) Stat Exams 06/01/24 00:09 Draft XR knee LT 3V Stat Exams 05/31/24 23:24 Completed XR shoulder RT min 2V Stat Exams 05/31/24 23:24 Completed Alcohol, Blood Medical Stat Lab 05/31/24 23:45 Completed CBC Stat Lab 05/31/24 23:45 Completed CMP [Comprehensive Metabolic Panel] Stat Lab 05/31/24 23:45 Completed Magnesium Stat Lab 05/31/24 23:45 Completed PT [Prothrombin Time with INR] Stat Lab 05/31/24 23:45 Completed PTT [Partial Thromboplastin Time] Stat Lab 05/31/24 23:45 Completed Troponin I Stat Lab 05/31/24 23:45 Completed UA, C/S IF [Urinalysis, C/S if Indicated] Stat Lab 06/01/24 00:31 Completed Urine Culture Stat Lab 06/01/24 00:31 Received Lidocaine 5% Patch Med 05/31/24 23:51 Discontinued 2 patch TOP X1 ONE Morphine Inj Med 06/01/24 01:38 Discontinued 4 mg IVP X1 ONE Sodium Chloride 0.9% 1000 ml [Ns] 1,000 ml Med 06/01/24 01:20 Discontinued IV 999 mls/hr cefTRIAXone [Rocephin] 1,000 mg Med 06/01/24 01:02 Discontinued SODIUM CHLORIDE 0.9% (Popper) [Ns 0.9% (P)] 50 ml IV X1 cloNIDine HCL [Catapres] Med 05/31/24 23:23 Discontinued 0.3 mg PO X1 ONE Vital Signs Vital signs: Vital Signs Temperature 98.6 F 05/31/24 22:30 Pulse Rate 65 05/31/24 22:30 Respiratory Rate 18 05/31/24 22:30 Blood Pressure 201/75 H 05/31/24 22:30 Pulse Oximetry (%) 98 05/31/24 22:30 Oxygen Delivery Method Room Air 05/31/24 22:30 Fall MDM Narrative MDM Narrative:: Scribe Attestation: I, Dolores Silveira am scribing for and in the presence of Dr. Chand. Provider Notation: Although this document has been carefully reviewed, there may still be some phonetic and other typographical errors. These errors are purely grammatical due to imperfections in the software program and should not be construed in any way to compromise the substance of the patient's medical care during this visit. Patient data External records reviewed:: [facility] previous records (Chart review reveals a recent ED visit on 04/19/2024, during which she was admitted for acute calculous cholecystitis and underwent laparoscopic cholecystectomy by Dr. Dominguez. She was discharged home on 04/21/2024.) and EMS form Clinical information provided by:: patient and EMS Social determinants that could affect healthcare access:: other (specify) (Advanced age) Patient has the following chronic illnesses:: Myocardial Infarction, Hypercholesterolemia and Hypertension, Pneumonia, Myasthenia Gravis, Arthritis, Scoliosis and Fractures, Positive Cataracts and Head Trauma, Diabetes Mellitus Type 2, Bipolar Disorder, Depression and Anxiety SURGICAL: Positive Tonsillectomy, Adenoidectomy, Abdominal Surgery, Joint Replacement and Hysterectomy How is presenting disease/condition affected by chronic disease/condition?: exacerbated by Evaluation data The following diagnostics were reviewed and interpreted by me:: lab results, radiology exam(s) and EKG tracing(s) Lab and/or radiology exams considered but not ordered:: None Interpretation Summary: Pyelonephritis, Fall, Syncope, Fracture of right shoulder, hypertensive urgency Medications / Prescriptions Medications or Prescriptions considered but not ordered:: None Medication administrations:: Medication Administration History Acetaminophen (Acetaminophen 325 Mg Tablet) 650 mg PO Q6H PRN PRN Reason: Fever >100.3 or pain 1-3 Stop: 07/01/24 03:12 Dextrose (Dextrose 50%-Water Inj 50 Ml Syringe) 25 ml IV Q15MIN PRN PRN Reason: BG 50-70 responsive npo pt Stop: 07/01/24 03:21 Dextrose (Dextrose 50%-Water Inj 50 Ml Syringe) 50 ml IV Q15MIN PRN PRN Reason: BG <50 OR BG <70 & pt unresponsive Stop: 07/01/24 03:21 Duloxetine HCl (Duloxetine Hcl 30 Mg Capsule) 60 mg PO QDAY [facility] Stop: 07/01/24 08:59 Glucagon (Glucagon Inj 1 Mg Vial) 1 mg IM Q15MIN PRN PRN Reason: BG <70, and no IV access Heparin Sodium (Porcine) (Heparin Sod Inj 5000 Unit/Ml Vial) 5,000 unit SC Q8HR MARIA DE JESUS Stop: 06/15/24 05:59 Hydromorphone HCl (Hydromorphone Inj 2 Mg/Ml Vial) 0.5 mg IVP Q2H PRN PRN Reason: Pain 7-10 Stop: 06/06/24 03:12 Ceftriaxone Sodium/Dextrose (Rocephin/D5w 1gm Iv Premix) 1 gm in 50 mls @ 100 mls/hr IV HS [facility] Stop: 06/08/24 20:59 Insulin Human Lispro (Insulin Lispro (Admelog) 1 Unit/0.01 Ml Unit) 0 unit SC AC [facility]; Protocol Stop: 07/01/24 07:29 Ondansetron HCl (Ondansetron Inj 2 Mg/Ml Inj 2 Ml) 4 mg IV Q6H PRN; Protocol PRN Reason: NAUSEA OR VOMITING Stop: 07/01/24 03:12 Oxycodone/Acetaminophen (Oxycodone/Apap 5/325 Tablet) 1 tab PO Q6H PRN PRN Reason: PAIN SCALE 4-6 (Moderate Stop: 06/06/24 03:12 Pyridostigmine Green (Pyridostigmine Green 60 Mg Tablet) 90 mg PO QID [facility] Stop: 07/01/24 05:59 Discontinued Medications Clonidine (Clonidine Hcl 0.1 Mg Tablet) 0.3 mg PO X1 ONE Stop: 05/31/24 23:24 Last Admin: 06/01/24 03:56 Dose: 0.3 mg Documented By: CVL Ceftriaxone Sodium 1,000 mg/ (Sodium Chloride) 50 mls @ 100 mls/hr IV X1 ONE Stop: 06/01/24 01:31 Last Infusion: 06/01/24 01:40 Dose: Infused Documented By: Admin: 06/01/24 01:13 Dose: 100 mls/hr Documented By: CVL Sodium Chloride (Ns) 1,000 mls @ 999 mls/hr IV .Q1H1M ONE Stop: 06/01/24 02:20 Last Infusion: 06/01/24 02:46 Dose: Infused Documented By: Admin: 06/01/24 01:38 Dose: 999 mls/hr Documented By: CVL Lidocaine (Lidocaine 5% 1 Patch) 2 patch TOP X1 ONE Stop: 05/31/24 23:52 Last Admin: 06/01/24 00:16 Dose: 2 patch Documented By: CVL Morphine Sulfate (Morphine Sulf Inj 10 Mg/Ml Vial) 4 mg IVP X1 ONE Stop: 06/01/24 01:39 Last Admin: 06/01/24 01:43 Dose: 4 mg Documented By: CVL Treatment here from me included: Ceftriaxone Sodium, IV fluid, Lidocaine 5% patches, Morphine Sulfate, clonidine, and arm sling. Consultations Consultation(s) initiated? (list below): Yes Consultation #1 (Physician, Specialty, Details): Dr. Stubbs will consult if patient needs to be admitted for medical reasons. Diagnosis Fall Differential Diagnosis: syncope, dislocation of shoulder region, fracture of wrist, compression fracture, concussion with loss of consciousness, concussion without loss of consciousness and other Most likely diagnosis given after review of the tests above:: Pyelonephritis, Fall, Syncope, Fracture of right shoulder, hypertensive urgency Admission Indicated Admission indicated?: indicated Explain why admission is indicated or not indicated:: Pyelonephritis, Fall, Syncope, Fracture of right shoulder, hypertensive urgency Admission Request Was there a request for admission?: Yes Admission Attestation Admission request attestation: Discussed case with Hospitalist service regarding admission. Discussed patients ED course, exam findings, labs, and radiology results. The Hospitalist [agrees] to accept the patient for admission. Disposition Plan Disposition Plan: Admit Critical Care Time Critical Care Time Critical Care Time: No Discharge Plan Plan Patient Disposition: Admit Acute Care w/in Hospital Problem List Clinical Impression: Pyelonephritis, Fall, Syncope, Fracture of right shoulder, Hypertensive urgency
--- NOTE | 2024-05-31 23:22 | PD.EDFALL ---
ED Fall Injury RME/HPI General Chief Complaint: Fall Stated Complaint: FALL Time Seen by Provider: 05/31/24 23:22 Arrival date/time: 05/31/24 22:28 RME / HPI RME / HPI Narrative: This section includes all my notes and documentations, including HPI, PE, and ED course.? Carlito Chand MD HPI: ROS: All negative except as documented in HPI. Physical Exam: General:? Alert and oriented.? No acute distress when remaining still.? Eyes:? Conjunctivae and lids clear. ENT:? No nasal congestion.? ? Neck:? Supple. Heart:? RRR. Lungs:? No respiratory distress.? Good air movement.? No rhonchi, wheezing, rales.? Abdomen:? Soft and nontender.? Legs:? No clubbing, cyanosis, edema. Skin:? Warm and dry.? Neuro:? Alert and oriented X 3.? I reviewed all diagnostic test results. My interpretation of the EKG is My interpretation of the chest x-ray is My review of the CT report is Blood tests and urine tests At this point, diagnoses include Treatment here included Significant improvement Not yet done: I discussed the case with our hospitalist. About the presentation and exam and diagnostics and treatments here. And need of further care in the hospital. Will accept the patient. Not yet done: Based on my best medical judgment, made decision no further evaluation or treatment indicated at this time. Patient understands and agrees to the discharge instructions customized and printed, see below. Carlito Chand MD Related Data Home Medications ?Medication ?Instructions ?Recorded ?Confirmed duloxetine 60 mg capsule,delayed 60 mg PO QDAY 03/16/24 04/19/24 release pioglitazone 30 mg tablet 30 mg PO QDAY 03/16/24 04/19/24 pyridostigmine bromide 60 mg tablet 90 mg PO QID 03/16/24 03/16/24 trazodone 50 mg tablet 50 mg PO HS PRN Insomnia 03/16/24 03/16/24 Previous Rx's ?Medication ?Instructions ?Recorded insulin degludec 200 unit/mL (3 20 unit (0.1 mL) subcut QPM #9 mL 04/21/24 mL) subcutaneous pen loratadine 10 mg tablet 10 mg PO BID PRN Allergies #60 tabs 04/21/24 Allergies Allergy/AdvReac Type Severity Reaction Status Date / Time Sulfa (Sulfonamide Allergy Severe Hives Verified 11/02/22 06:03 Antibiotics) Course Vital Signs Vital signs: Vital Signs Temperature 98.6 F 05/31/24 22:30 Pulse Rate 65 05/31/24 22:30 Respiratory Rate 18 05/31/24 22:30 Blood Pressure 201/75 H 05/31/24 22:30 Pulse Oximetry (%) 98 05/31/24 22:30 Oxygen Delivery Method Room Air 05/31/24 22:30 Discharge Plan Prescriptions/Referrals Prescriptions/Med Rec: No Action trazodone 50 mg tablet 50 mg PO HS PRN (Reason: Insomnia) Patient Comments: take 1 tablet by mouth at bedtime if needed for insomnia pyridostigmine bromide 60 mg tablet 90 mg PO QID Patient Comments: 1 AND 1/2 tablet by mouth four times a day Rx Instructions: 1 and 1/2 tablet 4 times a day pioglitazone 30 mg tablet 30 mg PO QDAY Patient Comments: take 1 tablet by mouth once daily duloxetine 60 mg capsule,delayed release(DR/EC) 60 mg PO QDAY Patient Comments: take 1 capsule by mouth once daily loratadine 10 mg tablet 10 mg PO BID PRN (Reason: Allergies) Qty: 60 0RF insulin degludec 200 unit/mL (3 mL) insulin pen 20 unit subcut QPM Qty: 9 0RF Patient/Caregiver Discharge Instructions Print Language: Ghanaian
--- NOTE | 2024-05-31 23:24 | XR_ITS ---
Examination: Knee, left , 3 views Technique: Knee AP, lateral, oblique 3 views Date and time of exam: May 31, 2024 1134 hrs. Indications: Patient fell today with injury to the knee, knee pain Findings: Prominent osteopenia No acute fracture Moderate tricompartment osteoarthritis Impression: No acute fracture
--- NOTE | 2024-05-31 23:24 | XR_ITS ---
Examination: CT chest, without intravenous contrast. CT abdomen, without intravenous contrast. CT pelvis, without intravenous contrast. 2-D sagittal and coronal reconstructions. 3-D reconstructions. Date and time of exam:June 01, 2024 0050 hrs. Indications: Patient fell today with injury to the chest and abdomen, chest pain abdomen pain CTDI vol (mgy) 6.66 DLP (MGycm)459 Technique: Multiple CT images, 3.0 mm slice thickness, obtained chest, abdomen, pelvis, with the high-resolution 64 slice scanner.. Sagittal and coronal 2-D reconstructions are obtained. 3-D reconstructions Low dose protocols were performed. One or more of the following dose reduction techniques were used; automated exposure control, adjustment of the mA and/or KV according to patient size, use of iterative reconstruction technique. Findings: Lack of intravenous contrast significantly limits assessment for chest abdomen pelvis trauma Acute fractures right humeral head and neck No shoulder dislocation Thoracic aorta pulmonary arteries appear intact No pneumothorax pulmonary contusion or hemothorax Prominent osteopenia The manubrium the body the sternum intact No thoracic or lumbar vertebral body compression fractures Ribs appear intact Liver irregular in contour No liver splenic or renal laceration Mild perinephric stranding Abdominal aorta intact No free blood in the abdomen Negative for pneumoperitoneum Normal appendix Abundant stool in the rectum Colonic diverticulosis Urinary bladder intact Bones of the pelvis hips intact Impression: Acute fractures right humeral head and neck No hemopericardium, pneumothorax pulmonary contusion or hemothorax No abdominal parenchymal laceration Abdominal aorta intact No free blood in the abdomen and pelvis Suspect primary hepatocellular disease
--- NOTE | 2024-05-31 23:24 | XR_ITS ---
Examination: Shoulder,right, 2 views Technique: Shoulder AP internal rotation, Y view shoulder, 3 views Exam date and time :May 31, 2024 1120 hrs. Indications: Patient fell today with injury to the shoulder, shoulder pain. Findings: Acute fractures humeral neck and involving the humeral head greater tuberosity Mild displacement of the shaft of the humerus medially No shoulder dislocation Impression: Acute fracture humeral neck with likely fracture of the greater tuberosity of the humeral head
--- NOTE | 2024-05-31 23:25 | XR_ITS ---
Examination: CT brain head without contrast. 2-D sagittal coronal reconstructions Date and time of exam:June 01, 2024 12:50 AM Indications: Patient tripped and fell today, ground-level fall with injury to the head, head pain CTDI: vol (mGy):48.4 DLP: (mGycm):1027 Technique: Multiple CT axial sections of the brain have been obtained, 5 mm slice thickness. Contrast has not been administered. 2-D sagittal, coronal reconstructions have been obtained Low dose protocols were performed. One or more of the following dose reduction techniques were used; automated exposure control, adjustment of the mA and/or KV according to patient size, use of iterative reconstruction technique. Findings: No significant ventricular enlargement. Intra-axial or extra-axial hemorrhage density is not seen. No mass effect or midline shift Basal cisterns are not remarkable. Fourth ventricle is midline. Cranial vault intact. Impression: Negative for acute hemorrhage, mass effect or midline shift
--- NOTE | 2024-05-31 23:25 | XR_ITS ---
Examination: CT cervical spine without contrast 2-D sagittal reconstructions 2-D coronal reconstructions 3-D reconstructions. Exam date and time:June 01, 2024 0050 hrs. Indications: Ground-level fall today with injury to the neck, neck pain CTDI:vol (mGy) 8.46 DLP: (mGycm) 169 Technique: Multiple 2 mm axial sections of the cervical spine have been obtained. The coronal and sagittal reconstructions have been obtained. 3-D reconstructions have been obtained. Low dose protocols were performed. One or more of the following dose reduction techniques were used; automated exposure control, adjustment of the mA and/or KV according to patient size, use of iterative reconstruction technique. Findings: Axial sections demonstrate intact base of the skull. C1 exhibit satisfactory relationship to the odontoid. No acute cervical vertebral body fracture seen. Alignment posterior spinous processes satisfactory. Impression: No acute cervical fracture.
[2024-05-31 23:48] VITALS: BP 183/67; PULSE 58; RESP 18; O2SAT 99
[2024-05-31 23:52] LABS: Basophils # (Auto) 0.1 Thou/mm3 (0.0-0.2); Basophils % (Auto) 1 % (0-2.5); Eosinophils % (Auto) 0 % (0-10); Hematocrit 31.5 % (36.0-46.0); Hemoglobin 10.2 g/dL (12.0-16.0); Immature Granulocytes % (Auto) 0 % (0-0); Immature Granulocytes Auto 0.04 Thou/mm3 (0.00-0.00); Lymphocytes # (Auto) 1.7 Thou/mm3 (1.0-4.8); Lymphocytes % (Auto) 16 % (10-50); Mean Corpuscular HGB Conc 32.4 g/dl (31.0-37.0); Mean Corpuscular Hemoglobin 29.3 pg (25.0-35.0); Mean Corpuscular Volume 91 fL (80-100); Monocytes # (Auto) 0.8 Thou/mm3 (0.0-0.8); Monocytes % (Auto) 8 % (0-12); Neutrophils # (Auto) 7.7 Thou/mm3 (1.8-7.7); Neutrophils % (Auto) 75 % (37-80); Nucleated Red Blood Cell % 0 /100 WBC (0); Platelet Count 272 Thou/mm3 (140-440); RDW Standard Deviation 46.5 fL (36.4-46.3); Red Blood Count 3.48 Miln/mm3 (4.00-5.20); White Blood Count 10.3 Thou/mm3 (3.6-11.0)
[2024-06-01] VITALS (17 sets, daily range): BP systolic 113–202; BP diastolic 59–97; PULSE 57–87; RESP 14–95; TEMP 35.9–36.8; O2SAT 92–100; BMI 28.0; BMI 12.0
--- NOTE | 2024-06-01 00:09 | EKG_ITS ---
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
[2024-06-01] MEDS: LIDOCAINE 5% 1 PATCH 2 PATCH TOP (00:16)
[2024-06-01 00:19] LABS: Partial Thromboplastin Time 22.1 Seconds (22.0-36.0); Prothrombin Time 10.5 Seconds (9.0-12.2)
[2024-06-01 00:21] LABS: Alanine Aminotransferase < 7 U/L (10-49); Albumin, Serum 4.1 gm/dL (3.4-4.8); Albumin/Globulin Ratio 1.6 (1.2-2.2); Alcohol, Blood Medical < 3.0 mg/dL (0-10.0); Alkaline Phosphatase 89 U/L (46-116); Anion Gap 7 (7-16); Aspartate Amino Transferase 15 U/L (0-34); BUN/Creatinine Ratio 17 Ratio (12-20); Bilirubin,Total 0.2 mg/dL (0.3-1.2); Blood Urea Nitrogen 25 mg/dL (9-23); Calcium 9.9 mg/dL (8.3-10.6); Calcium (Corrected) 9.9 mg/dL (8.5-10.1); Carbon Dioxide 27.5 mMol/L (20.0-31.0); Chloride 108 mMol/L (98-107); Creatinine (Component) 1.5 mg/dL (0.6-1.3); Estimated Creatinine Clearance 26.8 mL/min (>60); Globulin 2.6 gm/dL (2.3-3.5); Glucose 98 mg/dL (74-106); Magnesium 2.1 mg/dL (1.6-2.6); Osmolality,Calculated 287 (275-295); Potassium 4.5 mMol/L (3.4-5.1); Sodium 142 mMol/L (136-145); Total Protein 6.7 gm/dL (5.7-8.2); Troponin I < 0.020 ng/mL (0.0-0.045); eGFR 36 See Note
[2024-06-01 00:50] LABS: Collection Type, Urine Clean Catch; Squamous Epithelial Cell,Urine 0 /hpf (0-5)
[2024-06-01 01:13] LABS: Bacteria,Urine 3+; Bilirubin,Urine Negative (Negative); Blood,Urine Negative (Negative); Clarity,Urine Turbid (Clear/Hazy); Color,Urine Lt-Yellow (Lt Yel-Yel); Glucose, Urine Negative (Negative); Ketones,Urine Negative (Negative); Leukocyte Esterase,Urine Positive (Negative); Nitrite,Urine Positive (Negative); PH,Urine 5.5 (5.0-7.0); Protein,Urine Trace (Neg - Trace); RBC,Urine 5 /hpf (0-3); Specific Gravity,Urine 1.023 (1.001-1.035); Urobilinogen,Urine Negative mg/dL (0.0-1.0); WBC,Urine 217 /hpf (0-5)
[2024-06-01] MEDS: cefTRIAXone 1,000 MG in SODIUM CHLORIDE 0.9% (Popper) 50 ML 100 MG IV (01:13)
[2024-06-01 01:14] LABS: Culture Indicated,Urine Yes
--- NOTE | 2024-06-01 01:29 | PRELIM_ITS ---
CT scan of the head without intravenous contrast (axial sections with sagittal and coronal reformats). June 01, 2024 0053 hours Clinical History: Fall Comparison: None currently available for review Findings: There is no intracranial hemorrhage, extra-axial collection, mass, mass-effect or midline shift. There is basal ganglia calcification within the cerebral hemispheres. There is mild white matter disease within the cerebral hemispheres which is nonspecific but may represent chronic small vessel ischemic change. There is good finn-white differentiation. There is no CT evidence of acute large vascular territorial infarct. There is mild involutional atrophy of the cerebral hemispheres. Ventricles are not enlarged or effaced. There is atherosclerotic calcification along the carotid siphons. Visualized paranasal sinuses and tympanomastoid cavities are clear. The bony calvarium is intact. Impression: No intracranial hemorrhage, mass-effect or midline shift. No CT evidence of acute large vascular territorial infarct. Report Electronically Signed By: Jared Carlos 06/01/2024 1:29:36 AM [EST]
[2024-06-01] MEDS: SODIUM CHLORIDE 0.9% 1000 ML 1,000 ML 999 ML IV (01:38)
[2024-06-01] MEDS: MORPHINE SULF INJ 10 MG/ML VIAL 4 MG IVP (01:43)
--- NOTE | 2024-06-01 01:56 | PRELIM_ITS ---
CT scan of the cervical spine without intravenous contrast (axial sections with sagittal and coronal reformats). June 01, 2024 0053 hours Clinical History: Cervical spine trauma Comparison: None Findings: There is no fracture, traumatic subluxation or other acute osseous abnormality of the cervical spine. There is straightening of the cervical spine curvature with loss of normal cervical lordosis. There are multilevel degenerative disc changes and spondylosis of the cervical spine with multilevel foraminal stenosis. There is mild rotatory atlantoaxial subluxation on the left, likely related to patient neck positioning. There is no prevertebral soft tissue swelling. Impression: No acute osseous abnormality of the cervical spine. Straightening of the cervical spine may indicate muscle spasm. Degenerative change. Report Electronically Signed By: Jared Carlos 06/01/2024 1:56:18 AM [EST]
--- NOTE | 2024-06-01 02:12 | PRELIM_ITS ---
CT scan of the chest, abdomen and pelvis without intravenous contrast (axial sections with sagittal and coronal reformats) June 01, 2024 at 0057 hours Clinical History: Fall. Comparison: None available at the time of this report. Findings: Right basal lung atelectasis. There is no pleural effusion or pneumothorax. The aorta is within normal limits for age on this noncontrast study. There is no mediastinal collection. There is no pericardial effusion. The spleen, pancreas, and adrenals are unremarkable on this noncontrast study. Mild bilateral perinephric fat stranding. Status postcholecystectomy. Mild irregular liver margins. The urinary bladder is nondistended, limited evaluation, questionable thickening of the urinary bladder wall. S/p hysterectomy. There is no free fluid or free air. Degenerative changes of the imaged portions of the spine. Chronic multilevel disc disease. Left convex thoracolumbar scoliosis. No evidence of appendicitis. Diverticulosis of the colon. Acute comminuted displaced fracture of the right proximal humerus extending through the neck and the head. Vascular calcifications. Impression: 1. Complex right humeral fracture. 2. Possible cirrhosis. 3. Possible cystitis. 4. Mild bilateral perinephric fat stranding, suspicious for medical renal disease. Please, correlate clinically. Report Electronically Signed By: Adelso Fragoso 06/01/2024 2:11:32 AM [EST]
--- NOTE | 2024-06-01 03:20 | PD.RESHP ---
Documentation for date of: 06/01/24 HPI History of Present Illness Chief complaint: mechanical fall History of present illness: The patient is a 73-year-old female with a previous medical history of hypertension, type 2 diabetes, myasthenia gravis, depression who came in on 05/31/24 after a mechanical fall. She said that she tripped over her own feet and landed on her right side. She denies losing consciousness, but reports that she hit her head. She denies dizziness, palpitations, feeling of heart racing, unsteady gait. She denies dysuria, abdominal pain. She reports that her muscle strength is at the baseline level. ED course: Blood pressure 201/75, pulse 65 bpm, afebrile, saturating well on room air. Lab work showed WBC count of 10.3, hemoglobin 10.2, platelets 272, sodium 142, potassium 4.5, BUN 25, creatinine 1.5 (previous creatinine 03/2024 1.8, GFR 36). UA was positive for WBC count of 217, 3+ bacteria, positive for nitrates, leukocyte esterase. Imaging showed right shoulder humeral neck fracture with mild displacement. Head CT and cervical spine CT was negative for acute pathology. EKG showed sinus rhythm with heart rate of 57. Patient received lidocaine patch, bolus of fluids, morphine 4 mg once, ceftriaxone once. Patient is going to be admitted for work up for mechanical fall, UTI treatment and pain control. Social history: Lives alone, denies smoking and drinking. Medication: takes pyridostigmine, official med rec is pending Surgical history: Cholecystectomy on 04/19/2024 Review of Systems Review of Systems Systems Reviewed: All systems reviewed, normal except as documented Past Medical History Past Medical History NEUROLOGIC: Positive Neurological Disorders and Head Trauma CARDIAC: Positive Cardiac Disorders, Myocardial Infarction, Hypercholesterolemia and Hypertension RESPIRATORY: Positive Pneumonia REPRODUCTIVE: Positive Endometriosis and Previous Pregnancies MUSCULOSKELETAL: Positive Musculoskeletal Disorders, Myasthenia Gravis, Arthritis, Scoliosis and Fractures ENT: Positive Cataracts and Head Trauma ENDOCRINE: Positive Endocrine Disorders and Diabetes Mellitus Type 2 PSYCHO/SOCIAL: Positive Psychiatric Problems, Bipolar Disorder, Depression and Anxiety OTHER HISTORY: Positive Hospitalization, Falls, Chicken Pox, Measles and Rubella (Sinhala Measles) Family History FAMILY HISTORY: Positive Family Cardiac Disorders and Family Surgery Surgical History SURGICAL: Positive Tonsillectomy, Adenoidectomy, Abdominal Surgery, Joint Replacement and Hysterectomy Social History SMOKING STATUS: Never smoker SECOND HAND EXPOSURE: No SUBSTANCE USE: does not use Exam Vital Signs Temp Pulse Resp BP Pulse Ox O2 Del Method 98.3 F 72 17 182/89 H 99 Room Air 06/01/24 01:24 06/01/24 01:24 06/01/24 01:24 06/01/24 01:24 06/01/24 01:24 06/01/24 01:24 Narrative Exam Physical Exam General: Awake and in no acute distress. Conversational and non-toxic appearing. HEENT: Normocephalic, atraumatic, mucous membranes moist. Heart: Regular rate and rhythm, no murmurs. Lungs: Clear to auscultation with no wheezing or crackles. Abdomen: Soft, nondistended, nontender, positive bowel sounds. ?No guarding or rebound tenderness. Neurologic: Alert and oriented x3, no gross neurological deficit, and patient able to move all 3 extremities. Right arm is splinted, able to move her fingers. Extremities: No edema. Skin: No rash or ecchymoses. Results: Labs 06/01/24 04:40 06/01/24 04:40 Labs: Short CBC 05/31/24 Range/Units 23:45 WBC 10.3 (3.6-11.0) Thou/mm3 Hgb 10.2 L (12.0-16.0) g/dL Hct 31.5 L (36.0-46.0) % Plt Count 272 D (140-440) Thou/mm3 BMP 05/31/24 23:45 Sodium 142 Potassium 4.5 Chloride 108 H Carbon Dioxide 27.5 BUN 25 H Creatinine 1.5 H Glucose 98 Calcium 9.9 Cardiac Enzymes 05/31/24 Range/Units 23:45 Troponin I < 0.020 (0.0-0.045) ng/mL Liver Function 05/31/24 Range/Units 23:45 Total Bilirubin 0.2 L (0.3-1.2) mg/dL AST 15 (0-34) U/L ALT < 7 L (10-49) U/L Alkaline Phosphatase 89 (46-116) U/L Albumin 4.1 (3.4-4.8) gm/dL Urine 06/01/24 Range/Units 00:31 Urine Color Lt-Yellow (Lt Yel-Yel) Urine Clarity Turbid A (Clear/Hazy) Urine pH 5.5 (5.0-7.0) Ur Specific [place] 1.023 (1.001-1.035) Urine Protein Trace (Neg - Trace) Urine Glucose (UA) Negative (Negative) Quality Measures Quality Measures VTE prophylaxis Advance care planning discussed with:: patient Medications Home Medications and Allergies Home Medications ?Medication ?Instructions ?Recorded ?Confirmed ?Type duloxetine 60 mg capsule,delayed 60 mg PO QDAY 03/16/24 04/19/24 History release pioglitazone 30 mg tablet 30 mg PO QDAY 03/16/24 04/19/24 History pyridostigmine bromide 60 mg tablet 90 mg PO QID 03/16/24 03/16/24 History trazodone 50 mg tablet 50 mg PO HS PRN Insomnia 03/16/24 03/16/24 History Allergies Allergy/AdvReac Type Severity Reaction Status Date / Time Sulfa (Sulfonamide Allergy Severe Hives Verified 06/01/24 03:58 Antibiotics) Visit Medications Acetaminophen (Acetaminophen 325 Mg Tablet) 650 mg PO Q6H PRN PRN Reason: Fever >100.3 or pain 1-3 Stop: 07/01/24 03:12 Duloxetine HCl (Duloxetine Hcl 30 Mg Capsule) 60 mg PO QDAY MARIA DE JESUS Stop: 07/01/24 08:59 Heparin Sodium (Porcine) (Heparin Sod Inj 5000 Unit/Ml Vial) 5,000 unit SC Q8HR MARIA DE JESUS Stop: 06/15/24 05:59 Hydromorphone HCl (Hydromorphone Inj 2 Mg/Ml Vial) 0.5 mg IVP Q2H PRN PRN Reason: Pain 7-10 Stop: 06/06/24 03:12 Ceftriaxone Sodium/Dextrose (Rocephin/D5w 1gm Iv Premix) 1 gm in 50 mls @ 100 mls/hr IV HS MARIA DE JESUS Stop: 06/08/24 20:59 Ondansetron HCl (Ondansetron Inj 2 Mg/Ml Inj 2 Ml) 4 mg IV Q6H PRN; Protocol PRN Reason: NAUSEA OR VOMITING Stop: 07/01/24 03:12 Oxycodone/Acetaminophen (Oxycodone/Apap 5/325 Tablet) 1 tab PO Q6H PRN PRN Reason: PAIN SCALE 4-6 (Moderate Stop: 06/06/24 03:12 Pyridostigmine [place] (Pyridostigmine [place] 60 Mg Tablet) 90 mg PO QID MARIA DE JESUS Stop: 07/01/24 05:59 Discontinued Medications Clonidine (Clonidine Hcl 0.1 Mg Tablet) 0.3 mg PO X1 ONE Stop: 05/31/24 23:24 Last Admin: 06/01/24 00:27 Dose: Not Given Ceftriaxone Sodium 1,000 mg/ (Sodium Chloride) 50 mls @ 100 mls/hr IV X1 ONE Stop: 06/01/24 01:31 Last Infusion: 06/01/24 01:40 Dose: Infused Sodium Chloride (Ns) 1,000 mls @ 999 mls/hr IV .Q1H1M ONE Stop: 06/01/24 02:20 Last Infusion: 06/01/24 02:46 Dose: Infused Lidocaine (Lidocaine 5% 1 Patch) 2 patch TOP X1 ONE Stop: 05/31/24 23:52 Last Admin: 06/01/24 00:16 Dose: 2 patch Morphine Sulfate (Morphine Sulf Inj 10 Mg/Ml Vial) 4 mg IVP X1 ONE Stop: 06/01/24 01:39 Last Admin: 06/01/24 01:43 Dose: 4 mg Assessment & Plan Plan The patient is a 73-year-old female with a previous medical history of hypertension, type 2 diabetes, myasthenia gravis, depression who came in on 05/31/24 after a mechanical fall. Patient is going to be admitted for work up for mechanical fall, UTI treatment and pain control. #Mechanical fall Patient has a history of myasthenia gravis. Denies dizziness, palpitations and loss of consciousness. Less likely to be syncope. Patient may have underlying balance issues. Plan: - Physical therapy eval - Echo ordered #Right humeral neck fracture Xray showed mild displacement. Splint was placed on right extremity. At the admission, patient reports pain 8/10. Plan: - Ortho consulted - Splinting - Pain control #UTI UA was positive for signs of UTI. Patient herself denies fever, chills, dysuria symptoms. Plan: - Ceftriaxone 06/01/24-current - Urine cultures ordered #History of myasthenia gravis Patient reports usual level of strength. Strength 5/5 on examination. Patient is able to drink water. Plan: - Continue home pyridostigmine - Avoid macrolides, aminoglycosides and fluorquinolones if possible due to possible worsening of weakness #CKD stage III Stable. Plan: - Monitor CMP - Avoid nephrotoxic agents #History of hypertension Plan: - Pain control - Consider starting BP mediation if high BP persists #Type 2 DM Plan: - Sliding scale insulin with Accu-checks - Hypoglycemia protocol in place Health maintenance: FEN: renal and carbohydrate consistent DVT prophylaxis: heparin sc GI prophylaxis: none Dispo: med surg CODE STATUS: Full code Plan of care discussed with attending Dr. Barney. Susana Snow MD, PGY 1. Attending Provider Attestation/Addendum Pt was evaluated and plan formulated together with the housestaff team. I have reviewed the residents note above and agree with most of its content. Please refer to the residents note for additional details.
[2024-06-01] MEDS: cloNIDine HCL 0.1 MG TABLET 0.3 MG PO (03:56)
[2024-06-01] MEDS: HYDROmorphone INJ 2 MG/ML VIAL 0.5 MG IVP ×2 (04:47→07:04)
[2024-06-01 04:55] LABS: Basophils # (Auto) 0.1 Thou/mm3 (0.0-0.2); Basophils % (Auto) 1 % (0-2.5); Eosinophils % (Auto) 0 % (0-10); Hematocrit 29.9 % (36.0-46.0); Hemoglobin 9.4 g/dL (12.0-16.0); Immature Granulocytes % (Auto) 0 % (0-0); Immature Granulocytes Auto 0.03 Thou/mm3 (0.00-0.00); Lymphocytes # (Auto) 2.4 Thou/mm3 (1.0-4.8); Lymphocytes % (Auto) 21 % (10-50); Mean Corpuscular HGB Conc 31.4 g/dl (31.0-37.0); Mean Corpuscular Hemoglobin 29.1 pg (25.0-35.0); Mean Corpuscular Volume 93 fL (80-100); Monocytes # (Auto) 0.9 Thou/mm3 (0.0-0.8); Monocytes % (Auto) 7 % (0-12); Neutrophils # (Auto) 8.2 Thou/mm3 (1.8-7.7); Neutrophils % (Auto) 71 % (37-80); Nucleated Red Blood Cell % 0 /100 WBC (0); Platelet Count 264 Thou/mm3 (140-440); RDW Standard Deviation 47.8 fL (36.4-46.3); Red Blood Count 3.23 Miln/mm3 (4.00-5.20); White Blood Count 11.6 Thou/mm3 (3.6-11.0)
--- NOTE | 2024-06-01 05:12 | PC.NURSE ---
REPORT GIVEN TO DANIEL SANCHEZ AT [facility].
[2024-06-01] MEDS: ONDANSETRON INJ 2 MG/ML INJ 2 ML 4 MG IV ×2 (05:14→23:04)
[2024-06-01 05:15] LABS: Alanine Aminotransferase 13 U/L (10-49); Albumin, Serum 3.8 gm/dL (3.4-4.8); Albumin/Globulin Ratio 1.6 (1.2-2.2); Alkaline Phosphatase 86 U/L (46-116); Anion Gap 7 (7-16); Aspartate Amino Transferase 36 U/L (0-34); BUN/Creatinine Ratio 16 Ratio (12-20); Bilirubin,Total 0.2 mg/dL (0.3-1.2); Blood Urea Nitrogen 22 mg/dL (9-23); Calcium (Corrected) 9.2 mg/dL (8.5-10.1); Carbon Dioxide 26.4 mMol/L (20.0-31.0); Chloride 109 mMol/L (98-107); Creatinine (Component) 1.4 mg/dL (0.6-1.3); Estimated Creatinine Clearance 28.7 mL/min (>60); Globulin 2.4 gm/dL (2.3-3.5); Glucose 120 mg/dL (74-106); Osmolality,Calculated 287 (275-295); Potassium 4.9 mMol/L (3.4-5.1); Sodium 142 mMol/L (136-145); Total Protein 6.2 gm/dL (5.7-8.2); eGFR 39 See Note
[2024-06-01] MEDS: HEPARIN SOD INJ 5000 UNIT/ML VIAL SC ×3 (05:15→21:33)
[2024-06-01] MEDS: oxyCODONE/APAP 5/325 TABLET 1 TAB PO ×4 (06:00→22:55)
[2024-06-01] MEDS: pyRIDostigmine bromide 60 MG TABLET 90 MG PO ×4 (06:19→20:51)
[2024-06-01] MEDS: FAMOTIDINE INJ 10 MG/ML VIAL 2 ML 20 MG IVP (09:39)
[2024-06-01] MEDS: DULoxetine HCL 30 MG CAPSULE 60 MG PO (09:40)
--- NOTE | 2024-06-01 11:47 | PD.RESPRO ---
Documentation for date of: 06/01/24 Subjective Subjective Interval history: Patient seen and examined at bedside. Labs and vitals reviewed. Patient continues to complain of pain, requiring IV pain medication, patient does have significant nausea after IV Dilaudid. Will use Zofran as needed and was given famotidine x 1. Patient ceftriaxone discontinued, patient will be given fosfomycin. Does have history of ESBL UTI. Patient has no symptoms of urinary infection. Will continue to monitor patient. Exam Vital Signs Temp Pulse Resp BP Pulse Ox O2 Del Method 96.6 F L 66 14 115/59 L 92 L Room Air 06/01/24 11:07 06/01/24 11:07 06/01/24 11:07 06/01/24 11:07 06/01/24 11:06/01/24 11:07 Narrative Exam Physical Exam General: Awake and in no acute distress. Conversational and non-toxic appearing. HEENT: Normocephalic, atraumatic, mucous membranes moist. Heart: Regular rate and rhythm, no murmurs. Lungs: Clear to auscultation with no wheezing or crackles. Abdomen: Soft, nondistended, nontender, positive bowel sounds. ?No guarding or rebound tenderness. Neurologic: Alert and oriented x3, no gross neurological deficit, and patient able to move all 3 extremities. Right arm is splinted, able to move her fingers. Extremities: No edema. Skin: No rash or ecchymoses. Objective Labs 06/02/24 04:45 06/02/24 04:45 Labs: Laboratory Results - last 24 hr 05/31/24 06/01/24 06/01/24 23:45 00:31 04:40 WBC 10.3 11.6 H RBC 3.48 L 3.23 L Hgb 10.2 L 9.4 L Hct 31.5 L 29.9 L MCV 91 93 MCH 29.3 29.1 MCHC 32.4 31.4 RDW Std Deviation 46.5 H 47.8 H Plt Count 272 D 264 Neut % (Auto) 75 71 Lymph % (Auto) 16 21 [place] % (Auto) 8 7 Eos % (Auto) 0 0 Baso % (Auto) 1 1 Neut # (Auto) 7.7 8.2 H Lymph # (Auto) 1.7 2.4 [place] # (Auto) 0.8 0.9 H Eos # (Auto) 0.0 0.0 Baso # (Auto) 0.1 0.1 Immature Gran # (Auto) 0.04 H 0.03 H Absolute Nucleated RBC 0.00 0.00 Immature Gran % 0 0 Nucleated RBC % 0 0 PT 10.5 INR 1.0 APTT 22.1 D Sodium 142 142 Potassium 4.5 4.9 Chloride 108 H 109 H Carbon Dioxide 27.5 26.4 Anion Gap 7 7 BUN 25 H 22 Creatinine 1.5 H 1.4 H Estim Creat Clear Calc 26.8 L 28.7 L eGFR 36 L 39 L BUN/Creatinine Ratio 17 16 Glucose 98 120 H Calculated Osmolality 287 287 Calcium 9.9 9.0 Corrected Calcium 9.9 9.2 Magnesium 2.1 Total Bilirubin 0.2 L 0.2 L AST 15 36 H ALT < 7 L 13 Alkaline Phosphatase 89 86 Troponin I < 0.020 Total Protein 6.7 6.2 Albumin 4.1 3.8 Globulin 2.6 2.4 Albumin/Globulin Ratio 1.6 1.6 Ur Collection Type Clean Catch Urine Color Lt-Yellow Urine Clarity Turbid A Urine pH 5.5 Ur Specific [place] 1.023 Urine Protein Trace Urine Glucose (UA) Negative Urine Ketones Negative Urine Blood Negative Urine Nitrite Positive Urine Bilirubin Negative Urine Urobilinogen (Auto) Negative Ur Leukocyte Esterase Positive Urine RBC 5 H Urine WBC 217 H Ur Squamous Epith Cells 0 Urine Bacteria 3+ A Ur Culture Indicated? Yes Ethyl Alcohol < 3.0 Quality Measures Quality Measures VTE prophylaxis Advance care planning discussed with:: patient Assessment & Plan Assessment Current Active Medications: Generic Name Dose Route Start Last Admin Trade Name Tyrone PRN Reason Stop Dose Admin Acetaminophen 650 mg 06/01/24 03:13 Acetaminophen 325 Mg Tablet PO 07/01/24 03:12 Q6H PRN Fever >100.3 or pain 1-3 Dextrose 25 ml 06/01/24 03:22 Dextrose 50%-Water Inj 50 Ml Syringe IV 07/01/24 03:21 Q15MIN PRN BG 50-70 responsive npo pt Dextrose 50 ml 06/01/24 03:22 Dextrose 50%-Water Inj 50 Ml Syringe IV 07/01/24 03:21 Q15MIN PRN BG <50 OR BG <70 & pt unresponsive Duloxetine HCl 60 mg 06/01/24 09:00 06/01/24 09:40 Duloxetine Hcl 30 Mg Capsule PO 07/01/24 08:59 60 mg QDAY MARIA DE JESUS Administration Glucagon 1 mg 06/01/24 03:22 Glucagon Inj 1 Mg Vial IM Q15MIN PRN BG <70, and no IV access Heparin Sodium (Porcine) 5,000 unit 06/01/24 06:00 06/01/24 05:15 Heparin Sod Inj 5000 Unit/Ml Vial SC 06/15/24 05:59 5,000 unit Q8HR MARIA DE JESUS Administration Hydromorphone HCl 0.25 mg 06/01/24 08:18 Hydromorphone Inj 2 Mg/Ml Vial IVP 06/06/24 03:12 Q2H PRN Pain 7-10 Insulin Human Lispro 0 unit 06/01/24 07:30 06/01/24 08:08 Insulin Lispro (Admelog) 1 Unit/0.01 Ml Unit SC 07/01/24 07:29 Not Given AC [facility] Protocol Nitrofurantoin Macrocrystals 100 mg 06/01/24 10:45 Nitrofurantoin Macro 100 Mg Capsule PO 06/05/24 10:44 BID [facility] Ondansetron HCl 4 mg 06/01/24 03:13 06/01/24 05:14 Ondansetron Inj 2 Mg/Ml Inj 2 Ml IV 07/01/24 03:12 4 mg Q6H PRN Administration NAUSEA OR VOMITING Protocol Oxycodone/Acetaminophen 1 tab 06/01/24 03:13 06/01/24 06:00 Oxycodone/Apap 5/325 Tablet PO 06/06/24 03:12 1 tab Q6H PRN Administration PAIN SCALE 4-6 (Moderate Pyridostigmine [place] 90 mg 06/01/24 06:00 06/01/24 06:19 Pyridostigmine [place] 60 Mg Tablet PO 07/01/24 05:59 90 mg QID MARIA DE JESUS Administration Plan Assessment and plan: Summary: The patient is a 73-year-old female with a previous medical history of hypertension, type 2 diabetes, myasthenia gravis, depression who came in on 05/31/24 after a mechanical fall. Patient is going to be admitted for work up for mechanical fall, UTI treatment and pain control. #Ground-level mechanical fall #Right humeral neck fracture Patient has a history of myasthenia gravis. Denies dizziness, palpitations and loss of consciousness. Less likely to be syncope. Patient may have underlying balance issues. Xray showed mild displacement. Splint was placed on right extremity. At the admission, patient reports pain 8/10. Plan: - Conservative management, splinted - Pain management with IV pain medications as needed - Physical therapy ordered - Follow echocardiogram to rule out any structural cardiac abnormalities, assess LV/RV function - Orthopedic surgeon consulted, appreciate recommendations #UTI Urinalysis was positive for bacteria, does have history of ESBL E. coli, currently denies any symptoms Patient was given ceftriaxone x 1, considering previous resistance to ESBL Plan: - Ordered fosfomycin - Follow urine culture #History of myasthenia gravis Patient reports usual level of strength. Strength 5/5 on examination. Patient is able to drink water. Follows Dr. Garcia outpatient. Plan: - Continue home dose Pyridostigmine - Avoid macrolides, aminoglycosides and fluorquinolones if possible due to possible worsening of weakness #CKD stage III Stable - Monitor CMP daily - Avoid nephrotoxic agents #History of hypertension Blood pressure soft, will continue to monitor, pending med reconciliation #Type 2 DM Hemoglobin A1c February 2024 5.2 Plan: - Sliding scale insulin with Accu-checks - Hypoglycemia protocol in place #Normocytic normochromic anemia #Leukocytosis - Monitor CMP in a.m. DVT prophylaxis: Subcutaneous heparin GI prophylaxis: Not indicated Diet: Carbohydrate consistent Lines: Peripheral IV Code status: Full code Case discussed with Attending Dr. Denton. Michelle Jade PGY1 Disclaimer: This note was dictated by speech recognition. Minor errors in land acquisition analyst may be present due to voice recognition software. Attending Provider Attestation/Addendum I reviewed labs, imaging, EKG, home medications and prior available records. Face to face evaluation was performed by me. I have personally examined the patient and discussed assessment and plan with the IM team. I reviewed the resident note and agree with the plan with exceptions as below. Humeral neck fracture, right Mechanical fall Acute UTI CKD stage IIIb Consulted orthopedic surgery: Recommended splint and pain management Ordered PT evaluation Monitor kidney function: Stable Avoid nephrotoxins. Renally dosed medications Started fosfomycin after discussion of pharmacy. Follow-up urine culture
[2024-06-01] MEDS: INSULIN LISPRO (AdmeLOG) 1 UNIT/0.01 ML UNIT SC ×2 (12:16→16:51)
[2024-06-01] MEDS: HYDROmorphone INJ 2 MG/ML VIAL 0.25 MG IVP ×2 (14:33→20:50)
[2024-06-01] MEDS: FOSFOMYCIN PWD 3 GM PACKET (NON-FORMULARY) PO (14:33)
--- NOTE | 2024-06-01 15:20 | PC.SS ---
Rounding note: treating for UTI, neck fracture, and PT eval.
--- NOTE | 2024-06-01 17:19 | PC.SS ---
Initial assessment: this is 73 year old female admitted for humeral neck fracture. Patient confirmed demographic information. Patient lives at home, alone. Patient assigned her son Mert as her emergency contact. Patient PCP is Allyson Hodge at [facility]. Patient has a cane and walker to assist with ambulation. Patient plans to return home upon d/c. Patient declined SNF placement at this time, given PT's recommendation. Patient provided with community resources for transportation and utilities. Patient informs she will utilize Uber to return home for transport. D/c plan: Home Next of kin: sonMert
--- NOTE | 2024-06-01 17:44 | PD.ORTHCON ---
HPI Consult details Reason for consultation narrative: right proximal humerus fracture History of present illness: Fanny is a 73yo female with a ground level fall and shoulder pain. She has a history of myasthenia gravis and has significant right shoulder pain. Patient does not have great social support at home Meds Home Medications and Allergies Home Medications ?Medication ?Instructions ?Recorded ?Confirmed ?Type duloxetine 60 mg capsule,delayed 60 mg PO QDAY 03/16/24 04/19/24 History release pioglitazone 30 mg tablet 30 mg PO QDAY 03/16/24 04/19/24 History pyridostigmine bromide 60 mg tablet 90 mg PO QID 03/16/24 03/16/24 History trazodone 50 mg tablet 50 mg PO HS PRN Insomnia 03/16/24 03/16/24 History lisinopril 5 mg tablet 5 mg PO QDAY 06/01/24 History Allergies Allergy/AdvReac Type Severity Reaction Status Date / Time Sulfa (Sulfonamide Allergy Severe Hives Verified 06/01/24 03:58 Antibiotics) Exam Vital Signs Temp Pulse Resp BP Pulse Ox O2 Del Method 97.1 F 85 18 126/59 L 98 Oxy Mask 06/01/24 16:00 06/01/24 16:00 06/01/24 16:00 06/01/24 16:00 06/01/24 16:00 06/01/24 16:00 Additional findings Additional findings: Patient is in no acute distress and is cooperative with the examination today. Patient has a normal mood and affect. Breathing is nonlabored. In no respiratory distress. Bilateral extremities were evaluated and demonstrates sensation intact to light touch. Palpable pedal pulses are present. No significant edema is present. Patient has palpable radial pulses Sensations intact in radial ulnar and median nerve distributions X-rays demonstrate a comminuted right proximal humerus fracture Results - Ortho Labs 06/02/24 04:45 06/02/24 04:45 Labs: Short CBC 05/31/24 06/01/24 Range/Units 23:45 04:40 WBC 10.3 11.6 H (3.6-11.0) Thou/mm3 Hgb 10.2 L 9.4 L (12.0-16.0) g/dL Hct 31.5 L 29.9 L (36.0-46.0) % Plt Count 272 D 264 (140-440) Thou/mm3 BMP 05/31/24 06/01/24 23:45 04:40 Sodium 142 142 Potassium 4.5 4.9 Chloride 108 H 109 H Carbon Dioxide 27.5 26.4 BUN 25 H 22 Creatinine 1.5 H 1.4 H Glucose 98 120 H Calcium 9.9 9.0 Cardiac Enzymes 05/31/24 Range/Units 23:45 Troponin I < 0.020 (0.0-0.045) ng/mL Liver Function 05/31/24 06/01/24 Range/Units 23:45 04:40 Total Bilirubin 0.2 L 0.2 L (0.3-1.2) mg/dL AST 15 36 H (0-34) U/L ALT < 7 L 13 (10-49) U/L Alkaline Phosphatase 89 86 (46-116) U/L Albumin 4.1 3.8 (3.4-4.8) gm/dL Urine 06/01/24 Range/Units 00:31 Urine Color Lt-Yellow (Lt Yel-Yel) Urine Clarity Turbid A (Clear/Hazy) Urine pH 5.5 (5.0-7.0) Ur Specific [place] 1.023 (1.001-1.035) Urine Protein Trace (Neg - Trace) Urine Glucose (UA) Negative (Negative) Assessment & Plan Problem List (1) Closed fracture of right proximal humerus: Status: Acute Assessment and plan: Patient is a 73-year-old female with a right proximal humerus fracture. She may benefit from a reverse shoulder arthroplasty versus nonoperative treatment. I discussed with this patient this in great detail today. She is not A great historian is had to repeat myself several times. We discussed with her that if she wants surgery that she should see a shoulder specialist. I recommend a surgeon in [place] and I have given Him her contact. She should be in a sling and should be nonweightbearing. - Follow-up with Dr. Justin Hernandez in [place]
[2024-06-02] VITALS (7 sets, daily range): BP systolic 134–160; BP diastolic 66–81; PULSE 64–87; RESP 14–96; TEMP 35.8–36.5; O2SAT 94–99
[2024-06-02] MEDS: HYDROmorphone INJ 2 MG/ML VIAL 0.5 MG IVP (01:59)
[2024-06-02] MEDS: oxyCODONE/APAP 5/325 TABLET 1 TAB PO ×2 (03:16→16:13)
--- NOTE | 2024-06-02 03:17 | ECHO_ITS ---
Transthoracic Echo Report Ht (in): 63 Wt (lb): 158 Exam Location: Portable Status: Inpatient Blood Bank Manager: Keeley Nj Indications: Procedure Performed: BP: / HR: Technical Quality: Good MEASUREMENTS (Male / Female) Normal Values 2D ECHO LV Diastolic Diameter PLAX 3.5 cm 4.2 - 5.9 / 3.9 - 5.3 cm LV Systolic Diameter PLAX 2.2 cm IVS Diastolic Thickness 1.3 cm 0.6 - 1.0 / 0.6 - 0.9 cm LVPW Diastolic Thickness 1.1 cm 0.6 - 1.0 / 0.6 - 0.9 cm LV Relative Wall Thickness 0.7 LVOT Diameter 1.8 cm Aortic Root Diameter 3.2 cm LA Systolic Diameter LX 3.1 cm 3.0 - 4.0 / 2.7 - 3.8 cm LA Volume Index 26.2 cm?/m? 16 - 28 cm?/m? Ascending Aorta Diameter 2.8 cm DOPPLER AV Peak Velocity 130.8 cm/s AV Peak Gradient 6.8 mmHg AV Mean Gradient 6.0 mmHg AV Velocity Time Integral 38.5 cm LVOT Peak Velocity 102.0 cm/s LVOT Peak Gradient 4.2 mmHg LVOT Velocity Time Integral 32.6 cm AV Area Cont Eq vti 2.2 cm? AV Area Cont Eq pk 2.0 cm? MV Area PHT 4.1 cm? Mitral E Point Velocity 81.8 cm/s Mitral A Point Velocity 112.0 cm/s Mitral E to A Ratio 0.7 LV E' Lateral Velocity 10.4 cm/s Mitral E to LV E' Lateral Ratio 7.9 LV E' Septal Velocity 8.7 cm/s Mitral E to LV E' Septal Ratio 9.4 TR Peak Velocity 295.0 cm/s TR Peak Gradient 34.8 mmHg PV Peak Velocity 77.5 cm/s PV Peak Gradient 2.4 mmHg RVOT Peak Velocity 44.3 cm/s FINDINGS Left Ventricle Normal left ventricular size, wall thickness, systolic function with no obvious regional wall motion abnormalities. There is grade I diastolic dysfunction of the left ventricle (impaired relaxation pattern). The left ventricular ejection fraction is normal, estimated at 60-65%. Right Ventricle The right ventricle is normal in size and systolic function. The estimated right ventricular systolic pressure, 40 mmHg. Left Atrium The left atrium is normal by two-dimensional, color flow and Doppler imaging with no structural abnormalities, no thrombus formation present. Right Atrium The right atrium is normal by two-dimensional imaging, color flow and Doppler imaging with no structural abnormalities, no thrombus formation present. Atrial Septum The interatrial septum appears normal with no evidence of a shunt. Aorta The aorta is normal by two-dimensional, color flow and Doppler interrogation. Mitral Valve Trace to mild mitral regurgitation. Mild mitral annular calcification. Aortic Valve Aortic valve sclerosis. Diffuse calcification of the aortic valve. Tricuspid Valve There is mild tricuspid valve regurgitation. Pulmonic Valve Trivial pulmonic valve regurgitation. Vessels The pulmonary artery appears normal. The inferior vena cava pulmonary and hepatic veins appear normal. Pericardium The pericardium is normal by two-dimensional imaging. There is no significant pericardial effusion. CONCLUSIONS indication: syncope The transthoracic study is normal by two-dimensional, color flow imaging and Doppler interrogation. Normal left ventricular size and function. Approximate ejection fraction is 65%. Trace mitral and trace tricuspid regurgitation. Sindi Simeon (Electronically Signed) Final Date: 03 June 2024 16:46
[2024-06-02] MEDS: hydrOXYzine HCL 25 MG TABLET PO (03:56)
[2024-06-02 05:35] LABS: Basophils # (Auto) 0.1 Thou/mm3 (0.0-0.2); Basophils % (Auto) 1 % (0-2.5); Eosinophils % (Auto) 0 % (0-10); Hematocrit 28.6 % (36.0-46.0); Immature Granulocytes % (Auto) 0 % (0-0); Immature Granulocytes Auto 0.02 Thou/mm3 (0.00-0.00); Lymphocytes # (Auto) 2.2 Thou/mm3 (1.0-4.8); Lymphocytes % (Auto) 28 % (10-50); Mean Corpuscular HGB Conc 31.5 g/dl (31.0-37.0); Mean Corpuscular Hemoglobin 29.3 pg (25.0-35.0); Mean Corpuscular Volume 93 fL (80-100); Monocytes # (Auto) 0.8 Thou/mm3 (0.0-0.8); Monocytes % (Auto) 10 % (0-12); Neutrophils % (Auto) 62 % (37-80); Nucleated Red Blood Cell % 0 /100 WBC (0); Platelet Count 260 Thou/mm3 (140-440); Red Blood Count 3.07 Miln/mm3 (4.00-5.20)
[2024-06-02] MEDS: pyRIDostigmine bromide 60 MG TABLET 90 MG PO ×4 (05:42→21:10)
[2024-06-02] MEDS: HEPARIN SOD INJ 5000 UNIT/ML VIAL SC ×3 (05:43→21:08)
[2024-06-02] MEDS: HYDROmorphone INJ 2 MG/ML VIAL 0.25 MG IVP ×2 (05:52→16:57)
[2024-06-02 06:27] LABS: Alanine Aminotransferase 80 U/L (10-49); Albumin, Serum 3.9 gm/dL (3.4-4.8); Albumin/Globulin Ratio 1.6 (1.2-2.2); Alkaline Phosphatase 131 U/L (46-116); Anion Gap 8 (7-16); Aspartate Amino Transferase 137 U/L (0-34); BUN/Creatinine Ratio 14 Ratio (12-20); Bilirubin,Total 0.5 mg/dL (0.3-1.2); Blood Urea Nitrogen 20 mg/dL (9-23); Calcium 9.3 mg/dL (8.3-10.6); Calcium (Corrected) 9.4 mg/dL (8.5-10.1); Carbon Dioxide 26.1 mMol/L (20.0-31.0); Chloride 103 mMol/L (98-107); Creatinine (Component) 1.4 mg/dL (0.6-1.3); Globulin 2.5 gm/dL (2.3-3.5); Glucose 130 mg/dL (74-106); Osmolality,Calculated 278 (275-295); Potassium 4.4 mMol/L (3.4-5.1); Sodium 137 mMol/L (136-145); Total Protein 6.4 gm/dL (5.7-8.2); eGFR 39 See Note
[2024-06-02] MEDS: DULoxetine HCL 30 MG CAPSULE 60 MG PO (08:21)
--- NOTE | 2024-06-02 10:51 | XR_ITS ---
Examination: Abdomen sonogram, Limited Date and time of exam: June 02, 2024 1140 hrs. Indications: Status post cholecystectomy 3 weeks ago with vomiting beginning 3 days ago Technique: Real-time finn scale transabdominal sonographic images of the upper abdomen obtained. Findings: Absent gallbladder Common bile duct partially visualized 0.4 cm no stones Pancreatic head 2.6 cm Liver 12.9 cm fatty infiltration lobular contour no focal liver lesions Normal hepatopedal portal venous flow Patent IVC Impression: Absent gallbladder Normal common bile duct stones noted, not enlarged Fatty liver, primary hepatocellular disease
--- NOTE | 2024-06-02 13:23 | PC.SS ---
Addendum entered by EJ Freedman 06/02/24 15:07: Nila at [facility] informs they can accept the patient, pending 3 midnight stay. Addendum entered by EJ Freedman 06/02/24 14:42: PASRR completed. Addendum entered by EJ Freedman 06/02/24 13:32: SNF inquiry sent via [employer]. Pending responses. Original Note: SS follow up: patient is now agreeable with short term SNF. Preferred is [facility].
--- NOTE | 2024-06-02 13:49 | PD.RESPRO ---
Documentation for date of: 06/02/24 Subjective Subjective Interval history: Patient seen and examined at bedside. Patient continues to require IV pain medication to manage pain. Patient had bowel movement earlier today. Patient does have transaminitis, will obtain liver ultrasound Patient will be discharged to senior living facility as per patient's preference. Anticipate discharge in the next 24 hours. Exam Vital Signs Temp Pulse Resp BP Pulse Ox O2 Del Method 97.4 F 87 14 134/69 H 96 Room Air 06/02/24 11:25 06/02/24 11:06/02/24 11:06/02/24 11:06/02/24 11:06/02/24 11: Narrative Exam Physical Exam General: Awake and in no acute distress. Conversational and non-toxic appearing. HEENT: Normocephalic, atraumatic, mucous membranes moist. Heart: Regular rate and rhythm, no murmurs. Lungs: Clear to auscultation with no wheezing or crackles. Abdomen: Soft, nondistended, nontender, positive bowel sounds. ?No guarding or rebound tenderness. Neurologic: Alert and oriented x3, no gross neurological deficit, and patient able to move all 3 extremities. Right arm is splinted, able to move her fingers. Extremities: No edema. Skin: No rash or ecchymoses. Objective Labs 06/02/24 04:45 06/02/24 04:45 Labs: Laboratory Results - last 24 hr 06/02/24 04:45 WBC 8.0 RBC 3.07 L Hgb 9.0 L Hct 28.6 L MCV 93 MCH 29.3 MCHC 31.5 RDW Std Deviation 47.0 H Plt Count 260 Neut % (Auto) 62 Lymph % (Auto) 28 [place] % (Auto) 10 Eos % (Auto) 0 Baso % (Auto) 1 Neut # (Auto) 5.0 Lymph # (Auto) 2.2 [place] # (Auto) 0.8 Eos # (Auto) 0.0 Baso # (Auto) 0.1 Immature Gran # (Auto) 0.02 H Absolute Nucleated RBC 0.00 Immature Gran % 0 Nucleated RBC % 0 Sodium 137 Potassium 4.4 D Chloride 103 Carbon Dioxide 26.1 Anion Gap 8 BUN 20 Creatinine 1.4 H Estim Creat Clear Calc 33.0 L eGFR 39 L BUN/Creatinine Ratio 14 Glucose 130 H Calculated Osmolality 278 Calcium 9.3 Corrected Calcium 9.4 Total Bilirubin 0.5 AST 137 H ALT 80 H Alkaline Phosphatase 131 H D Total Protein 6.4 Albumin 3.9 Globulin 2.5 Albumin/Globulin Ratio 1.6 Quality Measures Quality Measures VTE prophylaxis Advance care planning discussed with:: patient Assessment & Plan Assessment Current Active Medications: Generic Name Dose Route Start Last Admin Trade Name Freq PRN Reason Stop Dose Admin Acetaminophen 650 mg 06/01/24 03:13 Acetaminophen 325 Mg Tablet PO 07/01/24 03:12 Q6H PRN Fever >100.3 or pain 1-3 Dextrose 25 ml 06/01/24 03:22 Dextrose 50%-Water Inj 50 Ml Syringe IV 07/01/24 03:21 Q15MIN PRN BG 50-70 responsive npo pt Dextrose 50 ml 06/01/24 03:22 Dextrose 50%-Water Inj 50 Ml Syringe IV 07/01/24 03:21 Q15MIN PRN BG <50 OR BG <70 & pt unresponsive Duloxetine HCl 60 mg 06/01/24 09:00 06/02/24 08:21 Duloxetine Hcl 30 Mg Capsule PO 07/01/24 08:59 60 mg QDAY MARIA DE JESUS Administration Fosfomycin Tromethamine 3 gm 06/01/24 13:45 06/01/24 14:33 Fosfomycin Pwd 3 Gm Packet (Non-Formulary) PO 06/04/24 13:46 3 gm Q3D MARIA DE JESUS Administration Glucagon 1 mg 06/01/24 03:22 Glucagon Inj 1 Mg Vial IM Q15MIN PRN BG <70, and no IV access Heparin Sodium (Porcine) 5,000 unit 06/01/24 06:00 06/02/24 05:43 Heparin Sod Inj 5000 Unit/Ml Vial SC 06/15/24 05:59 5,000 unit Q8HR MARIA DE JESUS Administration Hydromorphone HCl 0.25 mg 06/01/24 13:38 06/02/24 05:52 Hydromorphone Inj 2 Mg/Ml Vial IVP 06/06/24 08:17 0.25 mg Q6H PRN Administration Pain 7-10 Insulin Human Lispro 0 unit 06/01/24 07:30 06/02/24 11:32 Insulin Lispro (Admelog) 1 Unit/0.01 Ml Unit SC 07/01/24 07:29 Not Given AC [facility] Protocol Ondansetron HCl 4 mg 06/01/24 03:13 06/01/24 23:04 Ondansetron Inj 2 Mg/Ml Inj 2 Ml IV 07/01/24 03:12 4 mg Q6H PRN Administration NAUSEA OR VOMITING Protocol Oxycodone/Acetaminophen 1 tab 06/01/24 17:57 06/02/24 03:16 Oxycodone/Apap 5/325 Tablet PO 06/06/24 03:12 1 tab Q4H PRN Administration PAIN SCALE 4-6 (Moderate Pyridostigmine [place] 90 mg 06/01/24 06:00 06/02/24 12:26 Pyridostigmine [place] 60 Mg Tablet PO 07/01/24 05:59 90 mg QID MARIA DE JESUS Administration Plan Assessment and plan: Summary: The patient is a 73-year-old female with a previous medical history of hypertension, type 2 diabetes, myasthenia gravis, depression who came in on 05/31/24 after a mechanical fall. Patient is going to be admitted for work up for mechanical fall, UTI treatment and pain control. #Ground-level mechanical fall #Right humeral neck fracture Patient has a history of myasthenia gravis. Denies dizziness, palpitations and loss of consciousness. Less likely to be syncope. Patient may have underlying balance issues. Xray showed mild displacement. Splint was placed on right extremity. At the admission, patient reports pain 8/10. Plan: - Conservative management, splinted - Pain management with IV pain medications as needed - Physical therapy ordered - Follow echocardiogram to rule out any structural cardiac abnormalities, assess LV/RV function - Orthopedic surgeon consulted, appreciate recommendations #UTI Urinalysis was positive for bacteria, does have history of ESBL E. coli, currently denies any symptoms Patient was given ceftriaxone x 1, considering previous resistance to ESBL Plan: - Ordered fosfomycin - Follow urine culture #Transaminitis Can be secondary to pain medication -Will obtain liver ultrasound - Follow hep panel in a.m. #History of myasthenia gravis Patient reports usual level of strength. Strength 5/5 on examination. Patient is able to drink water. Follows Dr. Garcia outpatient. Plan: - Continue home dose Pyridostigmine - Avoid macrolides, aminoglycosides and fluorquinolones if possible due to possible worsening of weakness #CKD stage III Stable - Monitor CMP daily - Avoid nephrotoxic agents #History of hypertension Blood pressure soft, will continue to monitor, pending med reconciliation #Type 2 DM Hemoglobin A1c February 2024 5.2 Plan: - Sliding scale insulin with Accu-checks - Hypoglycemia protocol in place #Normocytic normochromic anemia #Leukocytosis - Monitor CMP in a.m. DVT prophylaxis: Subcutaneous heparin GI prophylaxis: Not indicated Diet: Carbohydrate consistent Lines: Peripheral IV Code status: Full code Case discussed with Attending Dr. D[place]. Michelle Jade PGY1 Disclaimer: This note was dictated by speech recognition. Minor errors in marine engine mechanic may be present due to voice recognition software. Attending Provider Attestation/Addendum I reviewed labs, imaging, EKG, home medications and prior available records. Face to face evaluation was performed by me. I have personally examined the patient and discussed assessment and plan with the IM team. I reviewed the resident note and agree with the plan with exceptions as below. Humeral neck fracture, right Mechanical fall Acute UTI CKD stage IIIb Transaminitis Consulted orthopedic surgery: Recommended splint and pain management Ordered PT evaluation: Recommended SNF. Discussed with social work instructor Monitor kidney function: Stable Avoid nephrotoxins. Renally dosed medications Started fosfomycin after discussion of pharmacy. Follow-up urine culture Ordered liver ultrasound. Monitor LFTs
[2024-06-02] MEDS: INSULIN LISPRO (AdmeLOG) 1 UNIT/0.01 ML UNIT SC (17:03)
[2024-06-03] VITALS (7 sets, daily range): BP systolic 135–163; BP diastolic 57–87; PULSE 77–91; RESP 14–96; TEMP 36.1–36.7; O2SAT 94–97; BMI 15.0
[2024-06-03] MEDS: pyRIDostigmine bromide 60 MG TABLET 90 MG PO ×4 (05:30→20:35)
[2024-06-03] MEDS: HEPARIN SOD INJ 5000 UNIT/ML VIAL SC ×3 (05:31→21:37)
[2024-06-03 05:36] LABS: Basophils % (Auto) 0 % (0-2.5); Eosinophils # (Auto) 0.2 Thou/mm3 (0.0-0.5); Eosinophils % (Auto) 2 % (0-10); Immature Granulocytes % (Auto) 0 % (0-0); Immature Granulocytes Auto 0.03 Thou/mm3 (0.00-0.00); Lymphocytes # (Auto) 2.1 Thou/mm3 (1.0-4.8); Lymphocytes % (Auto) 26 % (10-50); Mean Corpuscular HGB Conc 32.1 g/dl (31.0-37.0); Mean Corpuscular Hemoglobin 29.1 pg (25.0-35.0); Mean Corpuscular Volume 91 fL (80-100); Monocytes # (Auto) 0.7 Thou/mm3 (0.0-0.8); Monocytes % (Auto) 9 % (0-12); Neutrophils % (Auto) 62 % (37-80); Nucleated Red Blood Cell % 0 /100 WBC (0); Platelet Count 245 Thou/mm3 (140-440); RDW Standard Deviation 45.2 fL (36.4-46.3); Red Blood Count 3.09 Miln/mm3 (4.00-5.20)
[2024-06-03 06:12] LABS: Alanine Aminotransferase 70 U/L (10-49); Albumin, Serum 3.8 gm/dL (3.4-4.8); Albumin/Globulin Ratio 1.7 (1.2-2.2); Alkaline Phosphatase 137 U/L (46-116); Anion Gap 6 (7-16); Aspartate Amino Transferase 64 U/L (0-34); BUN/Creatinine Ratio 12 Ratio (12-20); Bilirubin,Total 0.4 mg/dL (0.3-1.2); Blood Urea Nitrogen 16 mg/dL (9-23); Calcium 9.4 mg/dL (8.3-10.6); Calcium (Corrected) 9.6 mg/dL (8.5-10.1); Carbon Dioxide 26.8 mMol/L (20.0-31.0); Chloride 104 mMol/L (98-107); Creatinine (Component) 1.3 mg/dL (0.6-1.3); Estimated Creatinine Clearance 35.5 mL/min (>60); Globulin 2.3 gm/dL (2.3-3.5); Glucose 137 mg/dL (74-106); Magnesium 1.9 mg/dL (1.6-2.6); Osmolality,Calculated 277 (275-295); Potassium 4.5 mMol/L (3.4-5.1); Sodium 137 mMol/L (136-145); Total Protein 6.1 gm/dL (5.7-8.2); eGFR 43 See Note
[2024-06-03] MEDS: oxyCODONE/APAP 5/325 TABLET 1 TAB PO (07:31)
[2024-06-03] MEDS: DULoxetine HCL 30 MG CAPSULE 60 MG PO (08:46)
--- NOTE | 2024-06-03 08:59 | PC.SS ---
Update: Plan is continue to pain management possible d/c home today.
[2024-06-03] MEDS: INSULIN LISPRO (AdmeLOG) 1 UNIT/0.01 ML UNIT SC (11:14)
--- NOTE | 2024-06-03 13:28 | ESDS_ITS ---
Addendum Discharge Addendum Date of report being addended: 06/03/24 Narrative: Attending's attestation: I reviewed labs, imaging, EKG, home medications and prior available records. Face to face evaluation was performed by me. I have personally examined the patient and discussed assessment and plan with the IM team. I reviewed the resident note and agree with the plan with exceptions as below. Humeral neck fracture, right Mechanical fall Acute UTI CKD stage IIIb Transaminitis Consulted orthopedic surgery: Recommended splint and pain management. May benefit from outpatient follow-up with shoulder surgeon Dr. Justin Rivera in [place] Ordered PT evaluation: Recommended SNF. Discussed with social work faculty member Monitor kidney function: Stable Avoid nephrotoxins. Renally dosed medications Will finish a course of fosfomycin after discussion of pharmacy. Follow-up urine culture Ordered liver ultrasound: Showed fatty liver disease. Monitor LFTs: Downtrending Time spent is 40 minutes. More than 50% of the time was spent on patient education and coordination of care.
--- NOTE | 2024-06-03 15:31 | PC.NURSE ---
Called health care social worker Garrett. Garrett notified me patient will not DC till tomorro for insurance purposes .
--- NOTE | 2024-06-03 15:39 | PC.SS ---
Patient to d/c to [facility] pending 3 midnight stay.
--- NOTE | 2024-06-03 16:46 | ESDS_ITS ---
Planned Discharge Date 06/03/24 DS: Providers Provider Date of admission: 06/01/24 03:04 Primary care physician: Nam Fagan MD Admitting Provider: Leoncio Barney MD Attending Provider on Admission: Jean Carlos Denton MD Consults: 06/01/24 02:46 Consult to Orthopedic Stat Comment: Right shoulder fracture Consulting Provider: Nando Stubbs 06/01/24 03:57 Referral Physical Therapy Routine Comment: Physician Instructions: 06/01/24 05:30 [employer] Referral - Transportation Routine Comment: Positive screening for transportation needs. [employer] [facility] Referral - Utilities Routine Comment: Positive screening for utility assistance needs. Attending Provider on DC: Jean Carlos Denton MD Discharging Provider: Jean Carlos Denton MD Anticipated date of discharge: 06/03/24 DS: Diagnosis Problem List Completed Was Problem List Reviewed/Reconciled?: Yes Hospital Course Hospital Course Hospital course: Hospital course: Ms. Ward is a 73-year-old female with past medical history of myasthenia gravis, type 2 diabetes mellitus, hypertension and depression who presented to [facility] emergency department on 05/31/2024 with a chief complaint of status post mechanical fall. Patient's x-ray of right extremity showed mildly displaced humeral shaft fracture and acute fracture of humeral neck involving the humeral head greater tuberosity, orthopedics was consulted recommended nonweightbearing and a sling. Patient was admitted to the hospital for pain management and also further management of underlying urinary tract infection. Patient was started on IV antibiotics, was transitioned off to fosfomycin considering patient had history of ESBL UTI in the past. Patient's renal function was monitored considering her underlying history of CKD, blood glucose levels were monitored and optimized and patient's pain was managed with IV pain medication. Patient will need to follow-up with shoulder specialist, with the progression of hospital course patient's pain improved, completed antibiotic therapy. Further plan is to discharge patient to intermediate facility per physical therapy recommendations for continued physical therapy and follow-up with primary care physician in 1 week, patient to follow-up with Dr. Justin Rivera in [place] for further workup of her shoulder. Patient is stable for discharge and patient responds well to hospital treatment. Discharge diagnosis: #Right humeral neck fracture #Ground-level mechanical fall #Urinary tract infection, ESBL UTI #Transaminitis #Myasthenia gravis, by history #Chronic kidney disease stage III #Hypertension, by history #Type 2 diabetes mellitus by history #Normocytic normochromic anemia #Leukocytosis Case discussed with Attending Dr. Corrie Jade PGY1 Disclaimer: This note was dictated by speech recognition. Minor errors in receiving distribution station operator may be present due to voice recognition software. Status at Discharge Overall status at discharge: patient is progressing back to baseline Time Spent with Patient Time attestation: Total time spent providing and/or coordinating discharge services: Greater than 35 minutes Time spent: Greater than 30 minutes Exam Vital Signs Temp Pulse Resp BP Pulse Ox O2 Del Method 97.6 F 77 19 152/77 H 96 Room Air 06/03/24 12:00 06/03/24 12:00 06/03/24 12:00 06/03/24 12:00 06/03/24 12:00 06/03/24 12:00 Narrative Exam Physical Exam General: Awake and in no acute distress. Conversational and non-toxic appearing. HEENT: Normocephalic, atraumatic, mucous membranes moist. Heart: Regular rate and rhythm, no murmurs. Lungs: Clear to auscultation with no wheezing or crackles. Abdomen: Soft, nondistended, nontender, positive bowel sounds. ?No guarding or rebound tenderness. Neurologic: Alert and oriented x3, no gross neurological deficit, and patient a ble to move all 3 extremities. Right arm is splinted, able to move her fingers. Extremities: No edema. Skin: No rash or ecchymoses. Discharge Plan Plan Patient Disposition: Xfer Skilled [facility] (SNF) Patient condition on transfer: Stable Prescriptions/Referrals Prescriptions/Med Rec: New oxycodone-acetaminophen 5-325 mg Tablet 1 tab PO Q6H MDD 4 PRN (Reason: Pain Scale 4-6 (Moderate) 30 Days Qty: 30 0RF Continued trazodone 50 mg tablet 50 mg PO HS PRN (Reason: Insomnia) Patient Comments: take 1 tablet by mouth at bedtime if needed for insomnia pyridostigmine bromide 60 mg tablet 90 mg PO QID Patient Comments: 1 AND 1/2 tablet by mouth four times a day Rx Instructions: 1 and 1/2 tablet 4 times a day pioglitazone 30 mg tablet 30 mg PO QDAY Patient Comments: take 1 tablet by mouth once daily duloxetine 60 mg capsule,delayed release(DR/EC) 60 mg PO QDAY Patient Comments: take 1 capsule by mouth once daily insulin degludec 200 unit/mL (3 mL) insulin pen 20 unit subcut QPM Qty: 9 0RF Held lisinopril 5 mg tablet 5 mg PO QDAY Hold Instructions: Resume on 06/10/24. Follow up with PCP Patient Comments: take 1 tablet by mouth once daily Referrals: Nam Fagan MD [Primary Care Provider] - Patient/Caregiver Discharge Instructions Discharge Activity: as per physical therapy Other Discharge Activity Instructions:: Continue Percocet as needed for pain, follow-up Dr. Justin Hernandez in [place] for further evaluation of shoulder fracture. You have completed treatment for your urinary tract infection. Hold Lisinopril considering you have CKD, follow-up with primary care physician to optimize medication for blood pressure control. Continue all other home medications. Follow-up with primary care physician in 1 week. Return to emergency department if symptoms worsen Other Discharge Diet Instructions: Renal diet Education Materials: Pain Management Meds Ch, ED Fracture, Upper Extremity Print Language: Burundian Stand Alone Forms: [facility] Award Info., Patient Portal Info Letter Discharge Order Discharge Orders: Discharge (Routine); Ordered 06/03/24 Ordered By: Michelle Jade Quality Discharge Quality Measures VTE prophylaxis Attestestation Attestation I reviewed labs, imaging, EKG, home medications and prior available records. Face to face evaluation was performed by me. I have personally examined the patient and discussed assessment and plan with the IM team. I reviewed the resident note and agree with the plan with exceptions as below. See my addendum for the same date of service
[2024-06-03] MEDS: SENNA TABLET 1 TAB PO (20:36)
[2024-06-03] MEDS: POLYETHYLENE GLYCOL 17 GM PACKET PO (20:36)
[2024-06-04] VITALS: BP 154/77; PULSE 91; RESP 18; TEMP 36.2; O2SAT 96
[2024-06-04 04:00] VITALS: BP 141/74; PULSE 82; RESP 18; TEMP 36.2; O2SAT 97
[2024-06-04] MEDS: pyRIDostigmine bromide 60 MG TABLET 90 MG PO ×4 (05:54→22:33)
[2024-06-04] MEDS: HEPARIN SOD INJ 5000 UNIT/ML VIAL SC ×3 (05:54→22:33)
[2024-06-04 06:15] LABS: Basophils % (Auto) 1 % (0-2.5); Eosinophils % (Auto) 0 % (0-10); Hematocrit 28.6 % (36.0-46.0); Immature Granulocytes % (Auto) 0 % (0-0); Immature Granulocytes Auto 0.02 Thou/mm3 (0.00-0.00); Lymphocytes # (Auto) 2.5 Thou/mm3 (1.0-4.8); Lymphocytes % (Auto) 32 % (10-50); Mean Corpuscular HGB Conc 31.5 g/dl (31.0-37.0); Mean Corpuscular Hemoglobin 28.6 pg (25.0-35.0); Mean Corpuscular Volume 91 fL (80-100); Monocytes # (Auto) 0.7 Thou/mm3 (0.0-0.8); Monocytes % (Auto) 9 % (0-12); Neutrophils # (Auto) 4.6 Thou/mm3 (1.8-7.7); Neutrophils % (Auto) 59 % (37-80); Nucleated Red Blood Cell % 0 /100 WBC (0); Platelet Count 222 Thou/mm3 (140-440); RDW Standard Deviation 46.2 fL (36.4-46.3); Red Blood Count 3.15 Miln/mm3 (4.00-5.20); White Blood Count 7.9 Thou/mm3 (3.6-11.0)
[2024-06-04 06:37] LABS: Alanine Aminotransferase 74 U/L (10-49); Albumin, Serum 3.8 gm/dL (3.4-4.8); Albumin/Globulin Ratio 1.6 (1.2-2.2); Alkaline Phosphatase 162 U/L (46-116); Anion Gap 6 (7-16); Aspartate Amino Transferase 58 U/L (0-34); BUN/Creatinine Ratio 12 Ratio (12-20); Bilirubin,Total 0.5 mg/dL (0.3-1.2); Blood Urea Nitrogen 14 mg/dL (9-23); Calcium 9.5 mg/dL (8.3-10.6); Calcium (Corrected) 9.7 mg/dL (8.5-10.1); Carbon Dioxide 28.3 mMol/L (20.0-31.0); Chloride 104 mMol/L (98-107); Creatinine (Component) 1.2 mg/dL (0.6-1.3); Estimated Creatinine Clearance 38.4 mL/min (>60); Globulin 2.4 gm/dL (2.3-3.5); Glucose 125 mg/dL (74-106); Magnesium 1.8 mg/dL (1.6-2.6); Osmolality,Calculated 277 (275-295); Potassium 4.4 mMol/L (3.4-5.1); Sodium 138 mMol/L (136-145); Total Protein 6.2 gm/dL (5.7-8.2); eGFR 47 See Note
[2024-06-04 08:00] VITALS: BP 154/86; PULSE 90; RESP 18; TEMP 36.3; O2SAT 96
[2024-06-04] MEDS: POLYETHYLENE GLYCOL 17 GM PACKET 34 GM PO (09:04)
[2024-06-04] MEDS: SENNA TABLET 1 TAB PO (09:05)
[2024-06-04] MEDS: DULoxetine HCL 30 MG CAPSULE 60 MG PO (09:06)
[2024-06-04] MEDS: INSULIN LISPRO (AdmeLOG) 1 UNIT/0.01 ML UNIT SC (11:17)
--- NOTE | 2024-06-04 11:51 | ESDS_ITS ---
<Statement entered by Leoncio Serna MD - 06/09/24 11:43> Patient seen and examined at bedside with resident. I personally reviewed all relevant imaging, labs, plan of care. Patient cleared for discharge today. Leoncio Serna MD Planned Discharge Date 06/04/24 DS: Providers Provider Date of admission: 06/01/24 03:04 Primary care physician: Nam Fagan MD Admitting Provider: Leoncio Barney MD Attending Provider on Admission: Jean Carlos Denton MD Consults: 06/01/24 02:46 Consult to Orthopedic Stat Comment: Right shoulder fracture Consulting Provider: Nando Stubbs 06/01/24 03:57 Referral Physical Therapy Routine Comment: Physician Instructions: 06/01/24 05:30 [employer] Referral - Transportation Routine Comment: Positive screening for transportation needs. [employer] Referral - Utilities Routine Comment: Positive screening for utility assistance needs. Attending Provider on DC: Leoncio Serna MD Discharging Provider: Leoncio Serna MD Anticipated date of discharge: 06/04/24 DS: Diagnosis Problem List Completed Was Problem List Reviewed/Reconciled?: Yes Hospital Course Hospital Course Hospital course: Patient's discharge was held yesterday secondary to insurance authorization query. Patient stable for discharge today, please see discharge summary below for details. Hospital course: Ms. Ward is a 73-year-old female with past medical history of myasthenia gravis, type 2 diabetes mellitus, hypertension and depression who presented to [facility] emergency department on 05/31/2024 with a chief complaint of status post mechanical fall. Patient's x-ray of right extremity showed mildly displaced humeral shaft fracture and acute fracture of humeral neck involving the humeral head greater tuberosity, orthopedics was consulted recommended nonweightbearing and a sling. Patient was admitted to the hospital for pain management and also further management of underlying urinary tract infection. Patient was started on IV antibiotics, was transitioned off to fosfomycin considering patient had history of ESBL UTI in the past. Patient's renal function was monitored considering her underlying history of CKD, blood glucose levels were monitored and optimized and patient's pain was managed with IV pain medication. Patient will need to follow-up with shoulder specialist, with the progression of hospital course patient's pain improved, completed antibiotic therapy. Further plan is to discharge patient to [facility] facility per physical therapy recommendations for continued physical therapy and follow-up with primary care physician in 1 week, patient to follow-up with Dr. Justin Rivera in [place] for further workup of her shoulder. Patient is stable for discharge and patient responds well to hospital treatment. Discharge diagnosis: #Right humeral neck fracture #Ground-level mechanical fall #Urinary tract infection, ESBL UTI #Transaminitis #Myasthenia gravis, by history #Chronic kidney disease stage III #Hypertension, by history #Type 2 diabetes mellitus by history #Normocytic normochromic anemia #Leukocytosis Case discussed with Attending Dr. Serna. Michelle Jade PGY1 Disclaimer: This note was dictated by speech recognition. Minor errors in home therapy clinician may be present due to voice recognition software. Status at Discharge Functional status at discharge: uses cane/walker Overall status at discharge: patient is progressing back to baseline Time Spent with Patient Time attestation: Total time spent providing and/or coordinating discharge services: Time spent: Greater than 30 minutes Exam Vital Signs Temp Pulse Resp BP Pulse Ox O2 Del Method 97.4 F 90 18 154/86 H 96 Room Air 06/04/24 08:00 06/04/24 08:00 06/04/24 08:00 06/04/24 08:00 06/04/24 08:00 06/04/24 08:00 Narrative Exam Physical Exam General: Awake and in no acute distress. Conversational and non-toxic appearing. HEENT: Normocephalic, atraumatic, mucous membranes moist. Heart: Regular rate and rhythm, no murmurs. Lungs: Clear to auscultation with no wheezing or crackles. Abdomen: Soft, nondistended, nontender, positive bowel sounds. ?No guarding or rebound tenderness. Neurologic: Alert and oriented x3, no gross neurological deficit, and patient able to move all 3 extremities. Right arm is splinted, able to move her fingers. Extremities: No edema. Skin: No rash or ecchymoses. Discharge Plan Plan Patient Disposition: Xfer Skilled Nsg Fac (SNF) Patient condition on transfer: Stable Prescriptions/Referrals Prescriptions/Med Rec: New oxycodone-acetaminophen 5-325 mg Tablet 1 tab PO Q6H MDD 4 PRN (Reason: Pain Scale 4-6 (Moderate) 30 Days Qty: 30 0RF Continued trazodone 50 mg tablet 50 mg PO HS PRN (Reason: Insomnia) Patient Comments: take 1 tablet by mouth at bedtime if needed for insomnia pyridostigmine bromide 60 mg tablet 90 mg PO QID Patient Comments: 1 AND 1/2 tablet by mouth four times a day Rx Instructions: 1 and 1/2 tablet 4 times a day pioglitazone 30 mg tablet 30 mg PO QDAY Patient Comments: take 1 tablet by mouth once daily duloxetine 60 mg capsule,delayed release(DR/EC) 60 mg PO QDAY Patient Comments: take 1 capsule by mouth once daily insulin degludec 200 unit/mL (3 mL) insulin pen 20 unit subcut QPM Qty: 9 0RF Held lisinopril 5 mg tablet 5 mg PO QDAY Hold Instructions: Resume on 06/10/24. Follow up with PCP Patient Comments: take 1 tablet by mouth once daily Referrals: aNm Fagan MD [Primary Care Provider] - Patient/Caregiver Discharge Instructions Discharge Activity: as per physical therapy Other Discharge Activity Instructions:: Continue Percocet as needed for pain, follow-up Dr. Justin Hernandez in [place] for further evaluation of shoulder fracture. You have completed treatment for your urinary tract infection. Hold Lisinopril considering you have CKD, follow-up with primary care physician to optimize medication for blood pressure control. Continue all other home medications. Follow-up with primary care physician in 1 week. Return to emergency department if symptoms worsen Other Discharge Diet Instructions: Renal diet Education Materials: Pain Management Meds Ch, ED Fracture, Upper Extremity Print Language: Danish Stand Alone Forms: [facility] Award Info., Patient Portal Info Letter Discharge Order Discharge Orders: Discharge (Routine); Ordered 06/03/24 Ordered By: Michelle Jade Quality Discharge Quality Measures none
[2024-06-04 12:00] VITALS: BP 142/75; PULSE 87; RESP 18; TEMP 36.4; O2SAT 96
[2024-06-04] MEDS: LACTULOSE SYRUP 20 GM/30 ML UDC PO (13:08)
[2024-06-04] MEDS: FOSFOMYCIN PWD 3 GM PACKET (NON-FORMULARY) PO (13:08)
[2024-06-04 15:21] VITALS: BMI 28.0
[2024-06-04 16:00] VITALS: BP 140/77; PULSE 84; RESP 18; TEMP 36.4; O2SAT 96
[2024-06-04 20:00] VITALS: BP 139/81; PULSE 93; RESP 17; TEMP 36.2; O2SAT 97
[2024-06-04] MEDS: HYDROmorphone INJ 2 MG/ML VIAL 0.25 MG IVP (22:20)
[2024-06-05] VITALS: BP 149/74; PULSE 87; RESP 16; TEMP 36.3; O2SAT 97
[2024-06-05] MEDS: oxyCODONE/APAP 5/325 TABLET 1 TAB PO (02:16)
[2024-06-05 04:00] VITALS: BP 162/74; PULSE 85; RESP 16; TEMP 36.2; O2SAT 98
[2024-06-05] MEDS: pyRIDostigmine bromide 60 MG TABLET 90 MG PO ×2 (05:09→11:32)
[2024-06-05] MEDS: HEPARIN SOD INJ 5000 UNIT/ML VIAL SC (05:10)
[2024-06-05 05:51] LABS: Basophils % (Auto) 0 % (0-2.5); Eosinophils % (Auto) 0 % (0-10); Hematocrit 29.5 % (36.0-46.0); Hemoglobin 9.3 g/dL (12.0-16.0); Immature Granulocytes % (Auto) 0 % (0-0); Immature Granulocytes Auto 0.03 Thou/mm3 (0.00-0.00); Lymphocytes # (Auto) 2.2 Thou/mm3 (1.0-4.8); Lymphocytes % (Auto) 27 % (10-50); Mean Corpuscular HGB Conc 31.5 g/dl (31.0-37.0); Mean Corpuscular Hemoglobin 28.9 pg (25.0-35.0); Mean Corpuscular Volume 92 fL (80-100); Monocytes # (Auto) 0.8 Thou/mm3 (0.0-0.8); Monocytes % (Auto) 10 % (0-12); Neutrophils # (Auto) 5.1 Thou/mm3 (1.8-7.7); Neutrophils % (Auto) 62 % (37-80); Nucleated Red Blood Cell % 0 /100 WBC (0); Platelet Count 222 Thou/mm3 (140-440); RDW Standard Deviation 47.8 fL (36.4-46.3); Red Blood Count 3.22 Miln/mm3 (4.00-5.20); White Blood Count 8.2 Thou/mm3 (3.6-11.0)
[2024-06-05 06:12] LABS: Alanine Aminotransferase 60 U/L (10-49); Albumin, Serum 3.6 gm/dL (3.4-4.8); Albumin/Globulin Ratio 1.4 (1.2-2.2); Alkaline Phosphatase 151 U/L (46-116); Anion Gap 7 (7-16); Aspartate Amino Transferase 54 U/L (0-34); BUN/Creatinine Ratio 13 Ratio (12-20); Bilirubin,Total 0.7 mg/dL (0.3-1.2); Blood Urea Nitrogen 15 mg/dL (9-23); Calcium 9.1 mg/dL (8.3-10.6); Calcium (Corrected) 9.4 mg/dL (8.5-10.1); Carbon Dioxide 25.9 mMol/L (20.0-31.0); Chloride 104 mMol/L (98-107); Creatinine (Component) 1.2 mg/dL (0.6-1.3); Estimated Creatinine Clearance 37.6 mL/min (>60); Globulin 2.6 gm/dL (2.3-3.5); Glucose 123 mg/dL (74-106); Magnesium 1.9 mg/dL (1.6-2.6); Osmolality,Calculated 275 (275-295); Potassium 4.2 mMol/L (3.4-5.1); Sodium 137 mMol/L (136-145); Total Protein 6.2 gm/dL (5.7-8.2); eGFR 47 See Note
[2024-06-05 07:46] VITALS: BP 154/93; PULSE 87; RESP 16; TEMP 36.6; O2SAT 97
[2024-06-05] MEDS: DULoxetine HCL 30 MG CAPSULE 60 MG PO (08:19)
--- NOTE | 2024-06-05 10:54 | ESDS_ITS ---
<Statement entered by Leoncio Serna MD - 06/05/24 23:09> Patient seen and examined at bedside with resident. Agree with assessment and plan as dictated below. She is cleared for discharge at this time to snf facility. Time spent 40mins arranging discharge. Leoncio Serna MD Planned Discharge Date 06/05/24 DS: Providers Provider Date of admission: 06/01/24 03:04 Primary care physician: Nam Fagan MD Admitting Provider: Leoncio Barney MD Attending Provider on Admission: Jean Carlos Denton MD Consults: 06/01/24 02:46 Consult to Orthopedic Stat Comment: Right shoulder fracture Consulting Provider: Nando Stubbs 06/01/24 03:57 Referral Physical Therapy Routine Comment: Physician Instructions: 06/01/24 05:30 [employer] [facility]ity Referral - Transportation Routine Comment: Positive screening for transportation needs. [employer]ity Referral - Utilities Routine Comment: Positive screening for utility assistance needs. Attending Provider on DC: Leoncio Serna MD Discharging Provider: Leoncio Serna MD Anticipated date of discharge: 06/05/24 DS: Diagnosis Problem List Completed Was Problem List Reviewed/Reconciled?: Yes Hospital Course Hospital Course Hospital course: Patient's discharge was held previously secondary to pending bowel movement and insurance authorization required. Patient stable for discharge today, please see discharge summary below for details. Hospital course: Ms. Ward is a 73-year-old female with past medical history of myasthenia gravis, type 2 diabetes mellitus, hypertension and depression who presented to [facility] emergency department on 05/31/2024 with a chief complaint of status post mechanical fall. Patient's x-ray of right extremity showed mildly displaced humeral shaft fracture and acute fracture of humeral neck involving the humeral head greater tuberosity, orthopedics was consulted recommended nonweightbearing and a sling. Patient was admitted to the hospital for pain management and also further management of underlying urinary tract infection. Patient was started on IV antibiotics, was transitioned off to fosfomycin considering patient had history of ESBL UTI in the past. Patient's renal function was monitored considering her underlying history of CKD, blood glucose levels were monitored and optimized and patient's pain was managed with IV pain medication. Patient will need to follow-up with shoulder specialist, with the progression of hospital course patient's pain improved, completed antib iotic therapy. Further plan is to discharge patient to [facility] per physical therapy recommendations for continued physical therapy and follow- up with primary care physician in 1 week, patient to follow-up with Dr. Justin Rivera in [place] for further workup of her shoulder. Patient is stable for discharge and patient responds well to hospital treatment. Discharge diagnosis: #Right humeral neck fracture #Ground-level mechanical fall #Urinary tract infection, ESBL UTI #Transaminitis #Myasthenia gravis, by history #Chronic kidney disease stage III #Hypertension, by history #Type 2 diabetes mellitus by history #Normocytic normochromic anemia #Leukocytosis Case discussed with Attending Dr. Serna. Michelle Jade PGY1 Disclaimer: This note was dictated by speech recognition. Minor errors in alteration inspector may be present due to voice recognition software. Status at Discharge Functional status at discharge: uses cane/walker Overall status at discharge: patient is progressing back to baseline Time Spent with Patient Time attestation: Total time spent providing and/or coordinating discharge services: Greater than 35 minutes Time spent: Greater than 30 minutes Exam Vital Signs Temp Pulse Resp BP Pulse Ox O2 Del Method 97.9 F 87 16 154/93 H 97 Room Air 06/05/24 07:46 06/05/24 07:46 06/05/24 07:46 06/05/24 07:46 06/05/24 07:46 06/05/24 04:00 Narrative Exam Physical Exam General: Awake and in no acute distress. Conversational and non-toxic appearing. HEENT: Normocephalic, atraumatic, mucous membranes moist. Heart: Regular rate and rhythm, no murmurs. Lungs: Clear to auscultation with no wheezing or crackles. Abdomen: Soft, nondistended, nontender, positive bowel sounds. ?No guarding or rebound tenderness. Neurologic: Alert and oriented x3, no gross neurological deficit, and patient able to move all 3 extremities. Right arm is splinted, able to move her fingers. Extremities: No edema. Skin: No rash or ecchymoses. Discharge Plan Plan Patient Disposition: Xfer Skilled Nsg Fac (SNF) Patient condition on transfer: Stable Prescriptions/Referrals Prescriptions/Med Rec: New oxycodone-acetaminophen 5-325 mg Tablet 1 tab PO Q6H MDD 4 PRN (Reason: Pain Scale 4-6 (Moderate) 30 Days Qty: 30 0RF Continued trazodone 50 mg tablet 50 mg PO HS PRN (Reason: Insomnia) Patient Comments: take 1 tablet by mouth at bedtime if needed for insomnia pyridostigmine bromide 60 mg tablet 90 mg PO QID Patient Comments: 1 AND 1/2 tablet by mouth four times a day Rx Instructions: 1 and 1/2 tablet 4 times a day pioglitazone 30 mg tablet 30 mg PO QDAY Patient Comments: take 1 tablet by mouth once daily duloxetine 60 mg capsule,delayed release(DR/EC) 60 mg PO QDAY Patient Comments: take 1 capsule by mouth once daily insulin degludec 200 unit/mL (3 mL) insulin pen 20 unit subcut QPM Qty: 9 0RF Held lisinopril 5 mg tablet 5 mg PO QDAY Hold Instructions: Resume on 06/10/24. Follow up with PCP Patient Comments: take 1 tablet by mouth once daily Referrals: Nam Fagan MD [Primary Care Provider] - Patient/Caregiver Discharge Instructions Discharge Activity: as per physical therapy Other Discharge Activity Instructions:: Continue Percocet as needed for pain, follow-up Dr. Justin Hernandez in [place] for further evaluation of shoulder fracture. You have completed treatment for your urinary tract infection. Hold Lisinopril considering you have CKD, follow-up with primary care physician to optimize medication for blood pressure control. Continue all other home medications. Follow-up with primary care physician in 1 week. Return to emergency department if symptoms worsen. Other Discharge Diet Instructions: Renal diet Education Materials: Pain Management Meds Ch, ED Fracture, Upper Extremity Print Language: Italian Stand Alone Forms: [facility] Award Info., Patient Portal Info Letter Discharge Order Discharge Orders: Discharge (Routine); Ordered 06/05/24 Ordered By: Michelle Jade Quality Discharge Quality Measures VTE prophylaxis
[2024-06-05 11:53] VITALS: BP 141/83; PULSE 89; RESP 17; TEMP 37.1; O2SAT 98
--- NOTE | 2024-06-05 13:10 | PC.NURSE ---
Report called to [facility] report given to [facility] nurse.
--- NOTE | 2024-06-05 13:28 | PC.SS ---
Late entry; SS learned pt was to be discharged possible today; SS attempted to complete medicare notification; pt sleeping; SS learned pt needed bowel movement before discarge
--- NOTE | 2024-06-05 13:29 | PC.SS ---
SS provided discharge paperwork along with notify medical team SS spoke with HILARIO Dotson, will be able to transport pt at 1345 SS spoke with HILARIO Gusman, aware pt able to discharge; Uzma working on getting transportation SS met [facility] pt bedside completed medicare acknowledgement; pt will not be able to pay for transportation
== END 2024-06-05 13:50 | disposition skilled nursing facility (03) | DRG 563 ==
LOC: SERX 06-01 03:01 → SERHOLD 06-01 03:11 → S3NX 06-01 04:54
PROVIDERS: Admitting Provider Internal Medicine; Emergency Provider Emergency Medicine; PCP Family Medicine; Visit Provider Student in an Organized Health Care Education/Training Program
DX: S42.211A Unspecified displaced fracture of surgical neck of right humerus, initial encounter for closed fracture (principal); N39.0 Urinary tract infection, site not specified; Z16.12 Extended spectrum beta lactamase (ESBL) resistance; F32.A Depression, unspecified; N18.32 Chronic kidney disease, stage 3b; E11.22 Type 2 diabetes mellitus with diabetic chronic kidney disease; D63.1 Anemia in chronic kidney disease; I16.0 Hypertensive urgency; G70.00 Myasthenia gravis without (acute) exacerbation; I12.9 Hypertensive chronic kidney disease with stage 1 through stage 4 chronic kidney disease, or unspecified chronic kidney disease; R74.01 Elevation of levels of liver transaminase levels; E78.00 Pure hypercholesterolemia, unspecified; I25.2 Old myocardial infarction; F31.9 Bipolar disorder, unspecified; W01.0XXA Fall on same level from slipping, tripping and stumbling without subsequent striking against object, initial encounter; Z79.4 Long term (current) use of insulin; Z87.440 Personal history of urinary (tract) infections; Z88.2 Allergy status to sulfonamides
CPT/HCPCS: 36415; 70450; 71250; 72125; 73030; 73562; 74176; 76705; 80053; 80320; 81001; 83735; 84484; 85025; 85610; 85730; 87077; 87086; 87186; 93005; 93306; 97163; 99285; A4565; J0696; J1643; J1815; J2270; J2405; J3490; J7030; J7050; A9270; G0480

== ENCOUNTER 2024-09-12 20:59 | Emergency (ER) | payer MEDICARE, SELFPAY ==
[2024-09-12 21:13] VITALS: PULSE 84; RESP 20; O2SAT 96; BMI 23.0
[2024-09-12 21:22] VITALS: BP 96/70; PULSE 89; RESP 16; TEMP 37.3; O2SAT 97
--- NOTE | 2024-09-12 21:54 | PD.EDRME ---
Rapid Medical Screening Exam RME Arrival date/time: 09/12/24 20:59 Chief Complaint: Weakness Time Seen by Provider: 09/12/24 21:58 Vital signs: Vital Signs Temperature 99.2 F 09/12/24 21:22 Pulse Rate 89 09/12/24 21:22 Respiratory Rate 16 09/12/24 21:22 Blood Pressure 96/70 09/12/24 21:22 Pulse Oximetry (%) 97 09/12/24 21:22 Oxygen Delivery Method Room Air 09/12/24 21:22 RME Narrative: Mechanical fall in bedroom without injuries. Told neighbor who called EMS. No complaints. states she can stay with her friend mitali.
--- NOTE | 2024-09-12 22:49 | PD.EDWEAK ---
ED Weakness RME/HPI General Chief complaint: Weakness Stated complaint: WEAKNESS Time Seen by Provider: 09/12/24 21:58 Arrival date/time: 09/12/24 20:59 Limitations: no limitations RME / HPI RME / HPI Narrative: Patient is a 74-year-old female who is brought in by EMS after her neighbor called for assistance. She states she was in her bedroom, tripped over her toe, and had a mechanical fall without injury. She denies any head strike or neck pain. Denies any loss of conscious. Has had no vision changes. Denies any presyncopal episode or syncope prior to her fall. Denies any chest pain, abdominal pain, nausea, vomiting. She denies any wounds to her extremities. She is ambulating with a cane which is her baseline. She initially declined to speak to me stating she had no injuries and wanted to go home. After a lengthy discussion was able obtain the above history and she consented to an exam. Related Data Home Medications ?Medication ?Instructions ?Recorded ?Confirmed duloxetine 60 mg capsule,delayed 60 mg PO QDAY 03/16/24 06/03/24 release pioglitazone 30 mg tablet 30 mg PO QDAY 03/16/24 06/03/24 pyridostigmine bromide 60 mg tablet 90 mg PO QID 03/16/24 06/03/24 trazodone 50 mg tablet 50 mg PO HS PRN Insomnia 03/16/24 06/03/24 lisinopril 5 mg tablet 5 mg PO QDAY 06/01/24 06/03/24 Held on 06/03/24. Instructions: Resume on 06/10/24. Follow up with PCP Previous Rx's ?Medication ?Instructions ?Recorded insulin degludec 200 unit/mL (3 20 unit (0.1 mL) subcut QPM #9 mL 04/21/24 mL) subcutaneous pen Allergies Allergy/AdvReac Type Severity Reaction Status Date / Time Sulfa (Sulfonamide Allergy Severe Hives Verified 06/01/24 03:58 Antibiotics) Review of Systems Review of Systems Systems Reviewed: All systems reviewed, normal except as documented ED Exam General Limitations: Present no limitations General appearance: Present alert and in no apparent distress Head Head exam: Present atraumatic and other (No skull depressions. No hemotympanum or Suggs sign.) Eye Eye exam: Present normal appearance and PERRL ENT ENT exam: Present normal exam and normal oropharynx Neck Neck exam: Present normal inspection and other (No midline tenderness or vertebral step-off) Chest Chest inspection: Present normal inspection and symmetric chest wall rise Respiratory Respiratory exam: Present normal lung sounds bilaterally Cardiovascular Cardiovascular exam: Present regular rate, normal rhythm and normal heart sounds Abdominal Exam Abdominal exam: Present soft and normal bowel sounds Extremities Exam Extremities exam: Present normal inspection Back Exam Back exam: Present normal inspection and full ROM Neurological Exam Neurological exam: Present alert and oriented X3 Psychiatric Psychiatric exam: Present normal affect and normal mood Skin Skin exam: Present warm, dry, intact and normal color Course Quality Measures none Vital Signs Vital signs: Vital Signs Temperature 99.2 F 09/12/24 21:22 Pulse Rate 89 09/12/24 21:22 Respiratory Rate 16 09/12/24 21:22 Blood Pressure 96/70 09/12/24 21:22 Pulse Oximetry (%) 97 09/12/24 21:22 Oxygen Delivery Method Room Air 09/12/24 21:22 Weakness MDM Narrative MDM Narrative:: Patient is a 74-year-old female who is brought in by EMS after her neighbor called for assistance. She states she was in her bedroom, tripped over her toe, and had a mechanical fall without injury. She denies any head strike or neck pain. Denies any loss of conscious. Has had no vision changes. Denies any presyncopal episode or syncope prior to her fall. Denies any chest pain, abdominal pain, nausea, vomiting. She denies any wounds to her extremities. She is ambulating with a cane which is her baseline. She initially declined to speak to me stating she had no injuries and wanted to go home. After a lengthy discussion was able obtain the above history and she consented to an exam. On exam, patient is nontoxic-appearing and in no visible signs of distress. Her vital signs are stable. She is ambulate with a cane which is her baseline. She has no open wounds or injuries. She states she has no symptoms whatsoever and wants to be discharged. She does not want to have any workup performed. Patient will be discharged from the ER. She states she can stay with her friend mitali or her friend and stay at her house for further monitoring. She does agree to return at anytime for any worsening or emergent changes Patient data External records reviewed:: EMS form Clinical information provided by:: patient and EMS Social determinants that could affect healthcare access:: none Patient has the following chronic illnesses:: Diabetes, hypertension How is presenting disease/condition affected by chronic disease/condition?: uneffected by Evaluation data The following diagnostics were reviewed and interpreted by me:: other (specify) (n/a) Lab and/or radiology exams considered but not ordered:: n/a Interpretation Summary: n/a Medications / Prescriptions Medications or Prescriptions considered but not ordered:: n/a Medication administrations:: n/a Consultations Consultation(s) initiated? (list below): No Diagnosis Weakness Differential Diagnosis: anemia and dehydration Most likely diagnosis given after review of the tests above:: Mechanical fall Admission Indicated Admission indicated?: not indicated Admission Request Was there a request for admission?: No Disposition Plan Disposition Plan: Discharge Discharge Attestation Discharge Attestation: The patient and all family members were given an opportunity to ask questions and understood the discharge instructions. Discharge instructions specifically effects, indications for sooner follow up or return to the emergency department, and the expected course of current diagnosis. Patient condition: Stable Discharge Plan Plan Patient Disposition: HOME (Self Care) Patient condition on transfer: Stable Prescriptions/Referrals Prescriptions/Med Rec: No Action trazodone 50 mg tablet 50 mg PO HS PRN (Reason: Insomnia) Patient Comments: take 1 tablet by mouth at bedtime if needed for insomnia pyridostigmine bromide 60 mg tablet 90 mg PO QID Patient Comments: 1 AND 1/2 tablet by mouth four times a day Rx Instructions: 1 and 1/2 tablet 4 times a day pioglitazone 30 mg tablet 30 mg PO QDAY Patient Comments: take 1 tablet by mouth once daily duloxetine 60 mg capsule,delayed release(DR/EC) 60 mg PO QDAY Patient Comments: take 1 capsule by mouth once daily insulin degludec 200 unit/mL (3 mL) insulin pen 20 unit subcut QPM Qty: 9 0RF lisinopril 5 mg tablet 5 mg PO QDAY Patient Comments: take 1 tablet by mouth once daily Problem List Clinical Impression: Fall Patient/Caregiver Discharge Instructions Education Materials: Exercises to Prevent Falls, Preventing Falls How to ... Additional Instructions: -Follow up with your doctor this week. -Return here for any emergent changes. Print Language: [place]an Stand Alone Forms: [facility] Award Info., Patient Portal Info Letter
== END 2024-09-12 23:14 | disposition home or self-care (01) ==
LOC: SERX 22:14
PROVIDERS: Emergency Provider Emergency Medicine
DX: R53.1 Weakness (principal); W01.0XXA Fall on same level from slipping, tripping and stumbling without subsequent striking against object, initial encounter; Y92.002 Bathroom of unspecified non-institutional (private) residence as the place of occurrence of the external cause
CPT/HCPCS: 99282